=== PATIENT | female | born 1985 | race African-American/Black ===

== ENCOUNTER 2016-06-22 16:09 | Emergency (ER) | payer MEDICAID, OTHER ==
[~2016-06-22] VITALS: Ht 165.1 cm; Wt 80.0 kg
[~2016-06-22 16:09] MED LIST: ABIL5TAB PO; CEFI400C PO; DOXY100T18 PO; PROZ20CA11 PO; [UNRECOGNIZED DRUG - OTHER] PO
[2016-06-22 16:11] VITALS: BP 136/63; PULSE 97; RESP 17; TEMP 98.2; O2SAT 98
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
[2016-06-22 17:37] VITALS: BP 133/84; PULSE 90; RESP 20; O2SAT 98
[2016-06-22] MEDS ORDERED: QUET300XR PO (17:40)
[2016-06-22] MEDS ORDERED: BUPR150XL PO (17:40)
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
[2016-06-22 18:47] LABS: AUTOMATED NEUTROPHIL # 7.5 TH/MM3 (1.8-7.7); BASOPHIL # 0.1 TH/MM3 (0-0.2); BASOPHIL % 0.4 % (0.0-2.0); EOSINOPHIL # 0.2 TH/MM3 (0-0.4); EOSINOPHIL % 1.6 % (0.0-4.0); HEMO FLAGS DIFF FINAL; LYMPH % 26.8 % (9.0-44.0); LYMPHOCYTE # 3.1 TH/MM3 (1.0-4.8); MEAN CELL VOLUME 87.4 FL (80.0-100.0); MEAN CORPUSCULAR HEMOGLOBIN 28.3 PG (27.0-34.0); MEAN CORPUSCULAR HGB CONC 32.4 % (32.0-36.0); MONO % 6.5 % (0.0-8.0); NEUT % 64.7 % (16.0-70.0); PLATELET COUNT 333 TH/MM3 (150-450); RED BLOOD COUNT 4.12 MIL/MM3 (4.00-5.30); RED CELL DISTRIBUTION WIDTH 14.5 % (11.6-17.2); WHITE BLOOD COUNT 11.6 TH/MM3 (4.0-11.0)
[2016-06-22 19:05] LABS: BLOOD, URINE NEG (NEG); COMMENT (UR) CULT NOT INDICATED; CULTURE IF INDICATED CULT NOT INDICATED; GLUCOSE,URINE NEG (NEG); HYALINE CAST, URINE 2 /lpf (RARE); KETONE, URINE NEG (NEG); MUCUS URINE MOD /lpf (OCC); NITRITE,URINE NEG (NEG); SQUAMOUS EPITHELIAL CELL URINE 3 /hpf (0-5); URINE COLOR YELLOW (YELLW/STRAW)
[2016-06-22 19:15] LABS: ANION GAP 7 MEQ/L (5-15); AST (GOT) 13 U/L (15-37); BICARBONATE 28.1 MEQ/L (21.0-32.0); BLOOD UREA NITROGEN 16 MG/DL (7-18); CHLORIDE 106 MEQ/L (98-107); GLOMERULAR FILTRATION RATE 96 ML/MIN (>89); POTASSIUM 3.6 MEQ/L (3.5-5.1); SODIUM (NA) 141 MEQ/L (136-145)
[2016-06-22 19:17] VITALS: BP 101/59; PULSE 84; RESP 14; O2SAT 100
[2016-06-22 19:17] LABS: AMPHETAMINE, URINE NEG (NEG); BARBITURATES, URINE NEG (NEG); COCAINE, URINE POS (NEG)
[2016-06-22 19:19] LABS: ALKALINE PHOSPHATASE 78 U/L (45-117); ALT (GPT) 19 U/L (10-53); TOTAL BILIRUBIN ADULT 0.4 MG/DL (0.2-1.0)
[2016-06-22 19:21] LABS: ACETAMINOPHEN LESS THAN 2.0 MCG/ML (10.0-30.0)
[2016-06-22 23:25] VITALS: BP 98/55; PULSE 80; RESP 16; O2SAT 100
[2016-06-23 06:31] VITALS: BP 105/65; PULSE 73; RESP 12; O2SAT 99
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
[2016-06-23] MEDS ORDERED: PROZ20CA11 PO (10:14)
[2016-06-23] MEDS ORDERED: ABIL5TAB6 PO (10:14)
== END 2016-06-23 10:52 | disposition home or self-care (01) ==
LOC: NEPE 16:09 → NEPB 06-23 10:52
DX: F43.25 Adjustment disorder with mixed disturbance of emotions and conduct (principal); F14.10 Cocaine abuse, uncomplicated; F17.200 Nicotine dependence, unspecified, uncomplicated; Z02.89 Encounter for other administrative examinations; Z86.59 Personal history of other mental and behavioral disorders; Z87.42 Personal history of other diseases of the female genital tract
CPT/HCPCS: 80053; 80307; 81001; 84703; 85025; 99284

== ENCOUNTER 2016-07-24 07:06 | Inpatient (IN) | payer OTHER ==
[~2016-07-24] VITALS: Ht 167.6 cm; Wt 93.9 kg
[~2016-07-24 07:06] MED LIST changes: -ABIL5TAB PO; +ABIL5TAB6 PO; +BUPR150XL PO; -CEFI400C PO; -DOXY100T18 PO; +QUET300XR PO; -[UNRECOGNIZED DRUG - OTHER] PO
[2016-07-24 07:11] VITALS: BP 138/76; PULSE 113; RESP 20; TEMP 98.5; O2SAT 99
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
[2016-07-24 13:01] LABS: AUTOMATED NEUTROPHIL # 4.5 TH/MM3 (1.8-7.7); BASOPHIL % 0.6 % (0.0-2.0); EOSINOPHIL # 0.1 TH/MM3 (0-0.4); EOSINOPHIL % 1.6 % (0.0-4.0); HEMATOCRIT 34.3 % (35.0-46.0); HEMO FLAGS DIFF FINAL; LYMPH % 28.9 % (9.0-44.0); LYMPHOCYTE # 2.1 TH/MM3 (1.0-4.8); MEAN CELL VOLUME 86.2 FL (80.0-100.0); MEAN CORPUSCULAR HGB CONC 32.4 % (32.0-36.0); MONO % 6.5 % (0.0-8.0); NEUT % 62.4 % (16.0-70.0); PLATELET COUNT 253 TH/MM3 (150-450); RED BLOOD COUNT 3.98 MIL/MM3 (4.00-5.30); RED CELL DISTRIBUTION WIDTH 13.8 % (11.6-17.2); WHITE BLOOD COUNT 7.2 TH/MM3 (4.0-11.0)
[2016-07-24 13:05] LABS: BACTERIA, URINE FEW /hpf; BLOOD, URINE NEG (NEG); COMMENT (UR) CULT NOT INDICATED; CULTURE IF INDICATED CULT NOT INDICATED; GLUCOSE,URINE NEG (NEG); KETONE, URINE NEG (NEG); MUCUS URINE MOD /lpf (OCC); NITRITE,URINE NEG (NEG); PH, URINE 6.5 (5.0-8.5); SQUAMOUS EPITHELIAL CELL URINE 9 /hpf (0-5); URINE COLOR YELLOW (YELLW/STRAW)
[2016-07-24 13:09] LABS: AMPHETAMINE, URINE NEG (NEG); BARBITURATES, URINE NEG (NEG); COCAINE, URINE POS (NEG)
[2016-07-24 13:31] LABS: ANION GAP 7 MEQ/L (5-15); AST (GOT) 9 U/L (15-37); BICARBONATE 27.1 MEQ/L (21.0-32.0); BLOOD UREA NITROGEN 10 MG/DL (7-18); CHLORIDE 104 MEQ/L (98-107); GLOMERULAR FILTRATION RATE 106 ML/MIN (>89); POTASSIUM 3.4 MEQ/L (3.5-5.1); SODIUM (NA) 138 MEQ/L (136-145)
[2016-07-24 13:34] LABS: ALKALINE PHOSPHATASE 64 U/L (45-117); ALT (GPT) 14 U/L (10-53); TOTAL BILIRUBIN ADULT 0.3 MG/DL (0.2-1.0)
[2016-07-24 14:35] VITALS: BP 118/55; PULSE 77; RESP 16; TEMP 98.4; O2SAT 97
[2016-07-24 15:00] VITALS: BP 118/55; PULSE 77; RESP 16; TEMP 98.4; O2SAT 98
[2016-07-24 18:37] VITALS: BP 118/68; PULSE 92; RESP 18; TEMP 99; O2SAT 98
[2016-07-24] MEDS ORDERED: ACETAMINOPHEN 500 MG CPLT PO ONE (20:30)
[2016-07-24] MEDS ORDERED: ONDANSETRON ODT 4 MG TAB PO ONE (20:30)
[2016-07-24] MEDS ORDERED: QUEtiapine FUMARATE 300 MG TAB PO ONE (20:45)
[2016-07-24 22:35] VITALS: BP 119/54; PULSE 81; RESP 18; O2SAT 99
[2016-07-25 02:19] VITALS: BP 107/52; PULSE 72; RESP 18; O2SAT 99
[2016-07-25 06:22] VITALS: BP 119/54; PULSE 76; RESP 18; O2SAT 100
[2016-07-25] MEDS: buPROPion HCL 100 MG SUSTAINED RELEASE TAB PO SCH ×2 (09:00→20:48)
[2016-07-25] MEDS ORDERED: BENZTROPINE MESYLATE 1 MG TAB PO PRN (09:05)
[2016-07-25] MEDS ORDERED: MAGNESIUM HYDROXIDE SUSP 30 ML CUP PO PRN (09:30)
[2016-07-25] MEDS ORDERED: hydrOXYzine HCL 50 MG TAB PO PRN (10:00)
[2016-07-25] MEDS: NICOTINE 21 MG/24 HR PATCH T-DERMAL SCH (10:00)
[2016-07-25] MEDS ORDERED: ACETAMINOPHEN 325 MG TAB PO PRN (10:00)
[2016-07-25] MEDS ORDERED: BENZTROPINE MESYLATE 2 MG/2 ML VIAL IM PRN (10:00)
[2016-07-25] MEDS ORDERED: ALUMINUM/MAGNESIUM/SIMETH 30 ML CUP PO PRN (10:00)
[2016-07-25] MEDS: REMOVE OLD PATCH T-DERMAL SCH (10:00)
[2016-07-25 11:18] VITALS: BP 102/58; PULSE 87; RESP 18; TEMP 98.4; O2SAT 98
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
[2016-07-25 14:58] VITALS: BP 101/59; PULSE 76; RESP 18; TEMP 98.1; O2SAT 99
[2016-07-25 15:38] VITALS: BP 113/69; PULSE 80; RESP 17; TEMP 97.4
[2016-07-25] MEDS ORDERED: diphenhydrAMINE HCL 50 MG CAP PO PRN (21:00)
[2016-07-25] MEDS ORDERED: QUEtiapine FUMARATE 300 MG TAB PO SCH (21:00)
[2016-07-26 06:36] VITALS: BP 98/58; PULSE 75; RESP 16; TEMP 97.9; O2SAT 98
[2016-07-26] MEDS: buPROPion HCL 100 MG SUSTAINED RELEASE TAB PO SCH (08:23)
[2016-07-26] MEDS: NICOTINE 21 MG/24 HR PATCH T-DERMAL SCH (08:24)
[2016-07-26] MEDS: REMOVE OLD PATCH T-DERMAL SCH (08:24)
[2016-07-26] MEDS ORDERED: BUPR100CR PO (10:04)
[2016-07-26] MEDS ORDERED: QUET1TAB10 PO (10:04)
[2016-07-26 10:22] LABS: ANION GAP 8 MEQ/L (5-15); BICARBONATE 27.5 MEQ/L (21.0-32.0); BLOOD UREA NITROGEN 7 MG/DL (7-18); CHLORIDE 104 MEQ/L (98-107); GLOMERULAR FILTRATION RATE 90 ML/MIN (>89); POTASSIUM 3.5 MEQ/L (3.5-5.1); SODIUM (NA) 139 MEQ/L (136-145)
[2016-07-26 10:25] LABS: HDL CHOLESTEROL 42.1 MG/DL (40.0-60.0); LDL CHOLESTEROL 77 MG/DL (0-99)
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
[2016-07-26 16:35] LABS: HEMOGLOBIN A1b 1.3 %; HEMOGLOBIN LA1C 1.8 %; HEMOGLOBIN P3 3.4 %
== END 2016-07-26 12:45 | disposition home or self-care (01) | DRG 882 ==
LOC: NEPC 07:06 → NEDA 07-25 08:59 → H260 07-25 15:21
PROVIDERS: ADMIT Psychiatry & Neurology Psychiatry; ATTEND Psychiatry & Neurology Psychiatry
DX: F43.20 Adjustment disorder, unspecified (principal); R45.851 Suicidal ideations; F14.10 Cocaine abuse, uncomplicated; F31.9 Bipolar disorder, unspecified; Y09 Assault by unspecified means; Z76.5 Malingerer [conscious simulation]; F17.200 Nicotine dependence, unspecified, uncomplicated; Z79.899 Other long term (current) drug therapy; Z81.8 Family history of other mental and behavioral disorders; Z91.5 Personal history of self-harm
CPT/HCPCS: 80048; 80053; 80061; 80307; 81001; 83036; 84703; 85025; 99284

== ENCOUNTER 2016-07-30 08:08 | Emergency (ER) | payer OTHER ==
[~2016-07-30] VITALS: Ht 167.6 cm; Wt 80.0 kg
[~2016-07-30 08:08] MED LIST changes: +BUPR100CR PO; +QUET1TAB10 PO
[2016-07-30 08:23] VITALS: BP 123/72; PULSE 87; RESP 16; TEMP 98.6; O2SAT 100
[2016-07-30] MEDS ORDERED: SODIUM CHLORIDE 0.9% FLUSH 10 ML FLUSH IV FLUSH PRN (08:30)
[2016-07-30 09:05] VITALS: RESP 16; O2SAT 99
[2016-07-30 09:10] LABS: AUTOMATED NEUTROPHIL # 5.3 TH/MM3 (1.8-7.7); BASOPHIL % 0.6 % (0.0-2.0); EOSINOPHIL % 0.5 % (0.0-4.0); HEMATOCRIT 36.9 % (35.0-46.0); HEMO FLAGS DIFF FINAL; LYMPH % 26.8 % (9.0-44.0); LYMPHOCYTE # 2.1 TH/MM3 (1.0-4.8); MEAN CELL VOLUME 86.4 FL (80.0-100.0); MEAN CORPUSCULAR HGB CONC 32.3 % (32.0-36.0); MONO % 3.9 % (0.0-8.0); NEUT % 68.2 % (16.0-70.0); PLATELET COUNT 288 TH/MM3 (150-450); RED BLOOD COUNT 4.28 MIL/MM3 (4.00-5.30); RED CELL DISTRIBUTION WIDTH 14.5 % (11.6-17.2); WHITE BLOOD COUNT 7.8 TH/MM3 (4.0-11.0)
[2016-07-30 09:16] LABS: ANION GAP 7 MEQ/L (5-15); AST (GOT) 14 U/L (15-37); BICARBONATE 27.3 MEQ/L (21.0-32.0); BLOOD UREA NITROGEN 15 MG/DL (7-18); CHLORIDE 104 MEQ/L (98-107); GLOMERULAR FILTRATION RATE 74 ML/MIN (>89); POTASSIUM 3.9 MEQ/L (3.5-5.1); SODIUM (NA) 138 MEQ/L (136-145)
[2016-07-30 09:19] LABS: ALKALINE PHOSPHATASE 73 U/L (45-117); ALT (GPT) 18 U/L (10-53); TOTAL BILIRUBIN ADULT 0.5 MG/DL (0.2-1.0)
[2016-07-30] MEDS ORDERED: IBUPROFEN 800 MG TAB PO ONE (09:30)
[2016-07-30 09:36] LABS: BLOOD, URINE TRACE (NEG); GLUCOSE,URINE NEG (NEG); HYALINE CAST, URINE 3 /lpf (RARE); KETONE, URINE TRACE mg/dL (NEG); MUCUS URINE FEW /lpf (OCC); NITRITE,URINE NEG (NEG); PH, URINE 5.5 (5.0-8.5); SQUAMOUS EPITHELIAL CELL URINE 2 /hpf (0-5); URINE COLOR YELLOW (YELLW/STRAW)
[2016-07-30 09:44] LABS: COMMENT (UR) CULT NOT INDICATED; CULTURE IF INDICATED CULT NOT INDICATED
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
[2016-07-30] MEDS ORDERED: SODIUM CHLOR 0.9% 1000 ML INJ 1,000 ML IV ONE (10:30)
[2016-07-30 10:42] VITALS: RESP 16
[2016-07-30] MEDS ORDERED: IBUP-232 PO (11:39)
[2016-07-30 11:57] LABS: CHLAMYDIA PCR NOT DETECTED (NOT DETECT); NEISSERIA PCR NOT DETECTED (NOT DETECT)
== END 2016-07-30 12:16 | disposition home or self-care (01) ==
LOC: NEPC 08:08
DX: R10.2 Pelvic and perineal pain (principal); F17.210 Nicotine dependence, cigarettes, uncomplicated; F12.90 Cannabis use, unspecified, uncomplicated; F14.90 Cocaine use, unspecified, uncomplicated
CPT/HCPCS: 80053; 81001; 83690; 84703; 85025; 87210; 87491; 87591; 99284

== ENCOUNTER 2016-08-04 06:15 | Emergency (ER) | payer OTHER ==
[~2016-08-04] VITALS: Ht 167.6 cm; Wt 97.3 kg
[~2016-08-04 06:15] MED LIST changes: -ABIL5TAB6 PO; -BUPR150XL PO; +IBUP-232 PO; -PROZ20CA11 PO; -QUET300XR PO
[2016-08-04 06:18] VITALS: BP 135/80; PULSE 88; RESP 18; TEMP 98.5; O2SAT 99
[2016-08-04 06:57] VITALS: BP 120/69; PULSE 86; RESP 16; TEMP 98.1; O2SAT 100
--- NOTE | 2016-08-04 07:06 | PD ---
HPI Chief Complaint: Suicide Ideation/Attempt Time Seen by Provider: 07:03 Travel History International Travel<30 days: No Contact w/Intl Traveler<30days: No Traveled to known affect area: No History of Present Illness HPI 31-year-old female with previous history of suicidal attempts, presents to the ER today because she states that she has been upset, and intentionally overdosed on 12 tablets of Benadryl gel caps. She also states that she has drank alcohol. She denies any other medications or coingestions. She complains about feeling very tired. She denies any chest pains, trouble breathing, or other symptoms. Modifying Factors: None Associated Signs & Symptoms: Intentional overdose of Benadryl, alcohol, suicidal ideation Risk Factors: History of suicidal attempts PFSH Past Medical History Blood Disorders: No Bipolar Disorder: Yes Anxiety: Yes Depression: Yes Cardiovascular Problems: No Diabetes: No Diminished Hearing: No Endocrine: Yes Genitourinary: No Musculoskeletal: No Neurologic: No Psychiatric: Yes Reproductive: No Respiratory: No Immunizations Current: No ?: Unknown LMP: 5-6-17 : 4 Para: 4 Miscarriage: 1 Ovarian Cysts: Yes (LT SIDE) Dilation and Curettage (D&C): Yes Tubal Ligation: Yes Past Surgical History Section: Yes (06,08,11,13) Gynecologic Surgery: Yes (4 C-SECTIONS) Tonsillectomy: Yes Other Surgery: Yes Social History Alcohol Use: Yes (OCC) Tobacco Use: Yes (1/2 PPD) Substance Use: Yes (cocaine, MARIJUANA LAST USED YESTERDAY) Allergies-Medications (Allergen,Severity, Reaction): Coded Allergies: Levaquin (Verified Allergy, Severe, 08/04/16) Penicillin (Verified Allergy, Severe, Hives, 08/04/16) Zithromax (Verified Allergy, Severe, 08/04/16) Rocephin (Verified Allergy, Intermediate, 08/04/16) Codeine (Unverified Allergy, Unknown, 08/04/16) Morphine (Unverified Allergy, Unknown, 08/04/16) Reported Meds & Prescriptions Reported Meds & Active Scripts Active Ibuprofen 600 Mg Tab 600 Mg PO Q8HR PRN Quetiapine (Quetiapine Fumarate) 300 Mg Tab 300 Mg PO HS Wellbutrin SR 12 HR (Bupropion HCl) 100 Mg Tab 100 Mg PO BID Review of Systems Except as stated in HPI: all other systems reviewed are Neg Physical Exam Narrative GENERAL: Well-developed young -[place] female patient who is currently in mild distress. Awake and oriented 3. SKIN: Focused skin assessment warm/dry. HEAD: Atraumatic. Normocephalic. EYES: Pupils equal and round. No scleral icterus. No injection or drainage. ENT: No nasal bleeding or discharge. Mucous membranes pink and moist. NECK: Trachea midline. No JVD. CARDIOVASCULAR: Regular rate and rhythm. No murmur appreciated. RESPIRATORY: No accessory muscle use. Clear to auscultation. Breath sounds equal bilaterally. GASTROINTESTINAL: Abdomen soft, non-tender, nondistended. Hepatic and splenic margins not palpable. MUSCULOSKELETAL: No obvious deformities. No clubbing. No cyanosis. No edema. NEUROLOGICAL: Awake and alert. No obvious cranial nerve deficits. Motor grossly within normal limits. Normal speech. PSYCHIATRIC: Appropriate mood and affect; insight and judgment normal. Data Data Last Documented VS Vital Signs Date Time Temp Pulse Resp B/P Pulse Ox O2 Delivery O2 Flow Rate FiO2 08/04/16 06:57 841 18 100 Room Air 08/04/16 06:57 98.1 120/69 Orders Complete Blood Count With Diff (08/04/16 06:46) Comprehensive Metabolic Panel (08/04/16 06:46) Electrocardiogram (08/04/16 06:46) Psych Screen (08/04/16 06:46) Drug Screen, Random Urine (08/04/16 06:46) Alcohol (Ethanol) (08/04/16 06:46) Salicylates (Aspirin) (08/04/16 06:46) Tylenol (Acetaminophen) (08/04/16 06:46) MDM Medical Decision Making Medical Screen Exam Complete: Yes Emergency Medical Condition: Yes Medical Record Reviewed: Yes Differential Diagnosis Intentional overdose/suicidal ideation/medical clearance/rule out coingestions Narrative Course Initial workup has been ordered for the patient. Physician Communication Physician Communication Case is signed out to Dr. Sorto at 7 AM pending workup. Diagnosis Primary Impression: Suicidal ideations Additional Impressions: Medical clearance for psychiatric admission Intentional overdose of drug in tablet form Condition: Stable Dejuan Castro MD August 04, 2016 07:06
[2016-08-04 07:49] LABS: AUTOMATED NEUTROPHIL # 5.4 TH/MM3 (1.8-7.7); BASOPHIL # 0.1 TH/MM3 (0-0.2); BASOPHIL % 0.6 % (0.0-2.0); EOSINOPHIL # 0.1 TH/MM3 (0-0.4); EOSINOPHIL % 0.8 % (0.0-4.0); HEMATOCRIT 34.7 % (35.0-46.0); HEMO FLAGS DIFF FINAL; LYMPH % 29.6 % (9.0-44.0); LYMPHOCYTE # 2.5 TH/MM3 (1.0-4.8); MEAN CELL VOLUME 85.5 FL (80.0-100.0); MEAN CORPUSCULAR HEMOGLOBIN 28.7 PG (27.0-34.0); MEAN CORPUSCULAR HGB CONC 33.5 % (32.0-36.0); MONO % 5.1 % (0.0-8.0); NEUT % 63.9 % (16.0-70.0); PLATELET COUNT 310 TH/MM3 (150-450); RED BLOOD COUNT 4.05 MIL/MM3 (4.00-5.30); RED CELL DISTRIBUTION WIDTH 14.6 % (11.6-17.2); WHITE BLOOD COUNT 8.5 TH/MM3 (4.0-11.0)
--- NOTE | 2016-08-04 07:51 | PD ---
Data Data Last Documented VS Vital Signs Date Time Temp Pulse Resp B/P Pulse Ox O2 Delivery O2 Flow Rate FiO2 08/04/16 06:57 841 18 100 Room Air 08/04/16 06:57 98.1 120/69 Orders Complete Blood Count With Diff (08/04/16 06:46) Comprehensive Metabolic Panel (08/04/16 06:46) Electrocardiogram (08/04/16 06:46) Psych Screen (08/04/16 06:46) Drug Screen, Random Urine (08/04/16 06:46) Alcohol (Ethanol) (08/04/16 06:46) Salicylates (Aspirin) (08/04/16 06:46) Tylenol (Acetaminophen) (08/04/16 06:46) Labs Laboratory Tests Test 08/04/16 07:20 White Blood Count 8.5 TH/MM3 Red Blood Count 4.05 MIL/MM3 Hemoglobin 11.6 GM/DL Hematocrit 34.7 % Mean Corpuscular Volume 85.5 FL Mean Corpuscular Hemoglobin 28.7 PG Mean Corpuscular Hemoglobin 33.5 % Concent Red Cell Distribution Width 14.6 % Platelet Count 310 TH/MM3 Mean Platelet Volume 9.0 FL Neutrophils (%) (Auto) 63.9 % Lymphocytes (%) (Auto) 29.6 % Monocytes (%) (Auto) 5.1 % Eosinophils (%) (Auto) 0.8 % Basophils (%) (Auto) 0.6 % Neutrophils # (Auto) 5.4 TH/MM3 Lymphocytes # (Auto) 2.5 TH/MM3 Monocytes # (Auto) 0.4 TH/MM3 Eosinophils # (Auto) 0.1 TH/MM3 Basophils # (Auto) 0.1 TH/MM3 CBC Comment DIFF FINAL Differential Comment Sodium Level 142 MEQ/L Potassium Level 3.5 MEQ/L Chloride Level 106 MEQ/L Carbon Dioxide Level 28.3 MEQ/L Anion Gap 8 MEQ/L Blood Urea Nitrogen 14 MG/DL Creatinine 0.92 MG/DL Estimat Glomerular Filtration 87 ML/MIN Rate Random Glucose 79 MG/DL Calcium Level 8.7 MG/DL Total Bilirubin 0.2 MG/DL Aspartate Amino Transf 17 U/L (AST/SGOT) Alanine Aminotransferase 28 U/L (ALT/SGPT) Alkaline Phosphatase 74 U/L Total Protein 8.3 GM/DL Albumin 3.5 GM/DL Salicylates Level LESS THAN 1.7 MG/DL Urine Opiates Screen NEG Acetaminophen Level LESS THAN 2.0 MCG/ML Urine Barbiturates Screen NEG Urine Amphetamines Screen NEG Urine Benzodiazepines Screen NEG Urine Cocaine Screen POS Urine Cannabinoids Screen NEG Ethyl Alcohol Level LESS THAN 3 MG/DL MDM Supervised Visit with EFREN: No Narrative Course Patient signed out to me by previous provider. Please see associated note for further details. In short patient is a 31-year-old female with history of suicide attempts who has had increasing suicidal ideation as of late. Intentionally overdose on 12 tablets of 25 mg Benadryl gel caps, drink alcohol. Unclear exactly what time patient took these. Patient only minimally drowsy on exam otherwise unremarkable. Patient signout to me by previous provider pending EKG, labs, psychiatric evaluation. Twelve-lead EKG shows sinus rhythm. No notable ST abnormalities. QRS interval 113, QTC 418. CBC, CMP, Tylenol, aspirin, blood alcohol level, urine drug screen positive for cocaine. Patient is alert, oriented on my evaluation requesting breakfast. Medically clear for psychiatric evaluation. Diagnosis Primary Impression: Suicidal ideations Additional Impressions: Medical clearance for psychiatric admission Intentional overdose of drug in tablet form Condition: Stable Allison Shelley MD August 04, 2016 07:51
[2016-08-04 07:58] LABS: AMPHETAMINE, URINE NEG (NEG); BARBITURATES, URINE NEG (NEG); COCAINE, URINE POS (NEG)
[2016-08-04 08:09] LABS: ALT (GPT) 28 U/L (10-53); ANION GAP 8 MEQ/L (5-15); AST (GOT) 17 U/L (15-37); BICARBONATE 28.3 MEQ/L (21.0-32.0); BLOOD UREA NITROGEN 14 MG/DL (7-18); CHLORIDE 106 MEQ/L (98-107); GLOMERULAR FILTRATION RATE 87 ML/MIN (>89); POTASSIUM 3.5 MEQ/L (3.5-5.1); SODIUM (NA) 142 MEQ/L (136-145)
[2016-08-04 08:11] LABS: ALKALINE PHOSPHATASE 74 U/L (45-117); TOTAL BILIRUBIN ADULT 0.2 MG/DL (0.2-1.0)
[2016-08-04 08:15] LABS: ACETAMINOPHEN LESS THAN 2.0 MCG/ML (10.0-30.0)
[2016-08-04 10:37] VITALS: BP 109/58; PULSE 78; RESP 18; O2SAT 98
[2016-08-04 11:15] VITALS: BP 114/68; PULSE 82; RESP 18; TEMP 97.8; O2SAT 100
--- NOTE | 2016-08-04 16:17 | EKG ---
Date Performed: 08/04/2016 Time Performed: 07:10:25 PTAGE: 31 years EKG: Sinus rhythm MODERATE INTRAVENTRICULAR CONDUCTION DELAY MINIMAL VOLTAGE CRITERIA FOR LVH, CONSIDER NORMAL VARIANT Compared to previous tracing, the patient is no longer tachycardic BORDERLINE ECG PREVIOUS TRACING : 06/20/2013 18.18 DOCTOR: Jyoti Springer Interpretating Date/Time 08/04/2016 16:15:00
[2016-08-04 17:51] VITALS: BP 125/58; PULSE 78; RESP 18
[2016-08-04 22:13] VITALS: BP 114/52; PULSE 70; RESP 18
[2016-08-05 02:30] VITALS: BP 125/58; PULSE 69; RESP 18
[2016-08-05 06:07] VITALS: BP 109/69; PULSE 71; RESP 16; O2SAT 98
[2016-08-05 10:00] VITALS: BP 111/55; PULSE 84; RESP 18; TEMP 97.2; O2SAT 99
[2016-08-05] MEDS ORDERED: IBUPROFEN 800 MG TAB PO ONE (12:30)
[2016-08-05 15:16] VITALS: BP 103/53; PULSE 72; RESP 18; TEMP 96.8; O2SAT 100
== END 2016-08-05 15:54 | disposition home or self-care (01) ==
LOC: NEPC 06:15 → NEPJ 08-05 15:54
DX: T45.0X2A Poisoning by antiallergic and antiemetic drugs, intentional self-harm, initial encounter (principal); F41.9 Anxiety disorder, unspecified
CPT/HCPCS: 80053; 80307; 85025; 93005

== ENCOUNTER 2016-09-09 06:10 | Inpatient (IN) | payer OTHER ==
[2016-09-09] VITALS (8 sets, daily range): BP systolic 113–125; BP diastolic 62–80; PULSE 74–89; RESP 16–18; TEMP 98.5–98.7; O2SAT 0–100
--- NOTE | 2016-09-09 06:50 | PD ---
HPI Chief Complaint: OD/ Ingestion Time Seen by Provider: 06:22 Travel History International Travel<30 days: No Contact w/Intl Traveler<30days: No Traveled to known affect area: No History of Present Illness HPI The patient is a 31-year-old [place] female who presents to the emergency department after an intentional overdose. The patient states she drank 2 small bottles of Naty and took 625 mg tablets of Benadryl at approximately 4 AM in an attempt to kill herself. The patient has a history of multiple psychiatric diagnoses in the past and was prescribed Seroquel. However , the patient stopped taking the Seroquel as he states "it wasn't helping ". The patient does have a history of previous suicide attempts with overdose in the past. She does complain of helplessness with suicidal thoughts. The patient currently lives with her parents and works at [employer]. She admits to smoking marijuana, drinking alcohol, and taking Benadryl earlier tonight. She denies any hallucinations or delusions. She denies any current physical complaints. Symptoms are moderate, exacerbated by history of psychiatric problems, and there are no current alleviating factors. PFSH Past Medical History Blood Disorders: No Bipolar Disorder: Yes Anxiety: Yes Depression: Yes Cardiovascular Problems: No Diabetes: No Diminished Hearing: No Endocrine: Yes Genitourinary: No Musculoskeletal: No Neurologic: No Psychiatric: Yes Reproductive: No Respiratory: No Immunizations Current: No ?: Not : 4 Para: 4 Miscarriage: 1 Ovarian Cysts: Yes (LT SIDE) Dilation and Curettage (D&C): Yes Tubal Ligation: Yes Past Surgical History Section: Yes (,08,11,13) Gynecologic Surgery: Yes (4 C-SECTIONS) Tonsillectomy: Yes Other Surgery: Yes Social History Alcohol Use: Yes Tobacco Use: Yes (1/2 PPD) Substance Use: Yes (cocaine, MARIJUANA LAST USED YESTERDAY) Allergies-Medications (Allergen,Severity, Reaction): Coded Allergies: Levaquin (Verified Allergy, Severe, 09/09/16) Penicillin (Verified Allergy, Severe, Hives, 09/09/16) Zithromax (Verified Allergy, Severe, 09/09/16) Rocephin (Verified Allergy, Intermediate, 09/09/16) Codeine (Unverified Allergy, Unknown, 09/09/16) Morphine (Unverified Allergy, Unknown, 09/09/16) Reported Meds & Prescriptions Reported Meds & Active Scripts Active Ibuprofen 600 Mg Tab 600 Mg PO Q8HR PRN Quetiapine (Quetiapine Fumarate) 300 Mg Tab 300 Mg PO HS Wellbutrin SR 12 HR (Bupropion HCl) 100 Mg Tab 100 Mg PO BID Review of Systems Except as stated in HPI: all other systems reviewed are Neg Cardiovascular: No: Chest Pain or Discomfort Respiratory: No: Shortness of Breath Gastrointestinal: No: Nausea, Vomiting, Abdominal Pain Genitourinary: No: Dysuria Psychiatric: Positive: Depression, Suicidal Ideations, Mood Disorder, Substance Abuse Physical Exam Narrative GENERAL: Awake, alert, pleasant 31-year-old female who appears her stated age and is in no acute respiratory distress. The patient is tearful. SKIN: Focused skin assessment warm/dry. HEAD: Atraumatic. Normocephalic. EYES: Pupils equal and round. Mild injection from crying. ENT: No nasal bleeding or discharge. Mucous membranes pink and moist. NECK: Trachea midline. No JVD. CARDIOVASCULAR: Regular rate and rhythm. No murmur appreciated. Heart rate in the 80s. RESPIRATORY: No accessory muscle use. Clear to auscultation. Breath sounds equal bilaterally. GASTROINTESTINAL: Abdomen soft, non-tender, nondistended. No rebound tenderness. MUSCULOSKELETAL: No obvious deformities. No clubbing. No cyanosis. No edema. NEUROLOGICAL: Awake and alert. No obvious cranial nerve deficits. Motor grossly within normal limits. Normal speech. Nonfocal. Oriented 4. Follows commands without difficulty. PSYCHIATRIC: Tearful, insight and judgment appear normal. Data Data Last Documented VS Vital Signs Date Time Temp Pulse Resp B/P Pulse Ox O2 Delivery O2 Flow Rate FiO2 09/09/16 18:30 74 18 117/62 100 Room Air 09/09/16 06:27 98.5 Orders Complete Blood Count With Diff (09/09/16 06:30) Comprehensive Metabolic Panel (09/09/16 06:30) Electrocardiogram (09/09/16 06:30) Psych Screen (09/09/16 06:30) Drug Screen, Random Urine (09/09/16 06:30) Alcohol (Ethanol) (09/09/16 06:30) Salicylates (Aspirin) (09/09/16 06:30) Tylenol (Acetaminophen) (09/09/16 06:30) Diet Regular Basic (09/09/16 Lunch) Diet Regular Basic (09/09/16 Dinner) Labs Laboratory Tests Test 09/09/16 09/09/16 06:40 07:35 White Blood Count 8.3 TH/MM3 Red Blood Count 4.42 MIL/MM3 Hemoglobin 12.7 GM/DL Hematocrit 37.5 % Mean Corpuscular Volume 84.8 FL Mean Corpuscular Hemoglobin 28.7 PG Mean Corpuscular Hemoglobin 33.9 % Concent Red Cell Distribution Width 13.6 % Platelet Count 278 TH/MM3 Mean Platelet Volume 8.7 FL Neutrophils (%) (Auto) 60.8 % Lymphocytes (%) (Auto) 32.6 % Monocytes (%) (Auto) 5.3 % Eosinophils (%) (Auto) 0.9 % Basophils (%) (Auto) 0.4 % Neutrophils # (Auto) 5.0 TH/MM3 Lymphocytes # (Auto) 2.7 TH/MM3 Monocytes # (Auto) 0.4 TH/MM3 Eosinophils # (Auto) 0.1 TH/MM3 Basophils # (Auto) 0.0 TH/MM3 CBC Comment DIFF FINAL Differential Comment Sodium Level 139 MEQ/L Potassium Level 4.2 MEQ/L Chloride Level 106 MEQ/L Carbon Dioxide Level 24.6 MEQ/L Anion Gap 8 MEQ/L Blood Urea Nitrogen 14 MG/DL Creatinine 1.10 MG/DL Estimat Glomerular Filtration 71 ML/MIN Rate Random Glucose 78 MG/DL Calcium Level 8.9 MG/DL Total Bilirubin 0.6 MG/DL Aspartate Amino Transf 22 U/L (AST/SGOT) Alanine Aminotransferase 21 U/L (ALT/SGPT) Alkaline Phosphatase 72 U/L Total Protein 8.4 GM/DL Albumin 3.6 GM/DL Salicylates Level LESS THAN 1.7 MG/DL Acetaminophen Level LESS THAN 2.0 MCG/ML Ethyl Alcohol Level LESS THAN 3 MG/DL Urine Opiates Screen NEG Urine Barbiturates Screen NEG Urine Amphetamines Screen NEG Urine Benzodiazepines Screen NEG Urine Cocaine Screen POS Urine Cannabinoids Screen NEG MDM Medical Decision Making Medical Screen Exam Complete: Yes Emergency Medical Condition: Yes Medical Record Reviewed: Yes Interpretation(s) Laboratory Tests Test 09/09/16 09/09/16 06:40 07:35 White Blood Count 8.3 TH/MM3 Red Blood Count 4.42 MIL/MM3 Hemoglobin 12.7 GM/DL Hematocrit 37.5 % Mean Corpuscular Volume 84.8 FL Mean Corpuscular Hemoglobin 28.7 PG Mean Corpuscular Hemoglobin 33.9 % Concent Red Cell Distribution Width 13.6 % Platelet Count 278 TH/MM3 Mean Platelet Volume 8.7 FL Neutrophils (%) (Auto) 60.8 % Lymphocytes (%) (Auto) 32.6 % Monocytes (%) (Auto) 5.3 % Eosinophils (%) (Auto) 0.9 % Basophils (%) (Auto) 0.4 % Neutrophils # (Auto) 5.0 TH/MM3 Lymphocytes # (Auto) 2.7 TH/MM3 Monocytes # (Auto) 0.4 TH/MM3 Eosinophils # (Auto) 0.1 TH/MM3 Basophils # (Auto) 0.0 TH/MM3 CBC Comment DIFF FINAL Differential Comment Sodium Level 139 MEQ/L Potassium Level 4.2 MEQ/L Chloride Level 106 MEQ/L Carbon Dioxide Level 24.6 MEQ/L Anion Gap 8 MEQ/L Blood Urea Nitrogen 14 MG/DL Creatinine 1.10 MG/DL Estimat Glomerular Filtration 71 ML/MIN Rate Random Glucose 78 MG/DL Calcium Level 8.9 MG/DL Total Bilirubin 0.6 MG/DL Aspartate Amino Transf 22 U/L (AST/SGOT) Alanine Aminotransferase 21 U/L (ALT/SGPT) Alkaline Phosphatase 72 U/L Total Protein 8.4 GM/DL Albumin 3.6 GM/DL Salicylates Level LESS THAN 1.7 MG/DL Acetaminophen Level LESS THAN 2.0 MCG/ML Ethyl Alcohol Level LESS THAN 3 MG/DL Urine Opiates Screen NEG Urine Barbiturates Screen NEG Urine Amphetamines Screen NEG Urine Benzodiazepines Screen NEG Urine Cocaine Screen POS Urine Cannabinoids Screen NEG Differential Diagnosis Differential diagnosis includes substance induced mood disorder, depressive disorder, major depression, bipolar affective disorder, suicidal ideation, adjustment disorder. Narrative Course Labs are drawn and sent. Psychiatric evaluation was ordered. The patient was placed under a Rowe act secondary to the intentional overdose with alcohol and Benadryl. Patient will be medically cleared and will be evaluated by psychiatry for labs are unremarkable. Labs are unremarkable except for tox screen that is positive for cocaine, patient is medically cleared to be evaluated by psychiatry. Disposition is per psych. Diagnosis Primary Impression: Intentional overdose of drug in tablet form Additional Impressions: Suicidal ideations Cocaine abuse Condition: Stable Bassam Jo MD 25, 2017 06:50
[2016-09-09 06:55] LABS: BASOPHIL % 0.4 % (0.0-2.0); EOSINOPHIL # 0.1 TH/MM3 (0-0.4); EOSINOPHIL % 0.9 % (0.0-4.0); HEMATOCRIT 37.5 % (35.0-46.0); HEMO FLAGS DIFF FINAL; LYMPH % 32.6 % (9.0-44.0); LYMPHOCYTE # 2.7 TH/MM3 (1.0-4.8); MEAN CELL VOLUME 84.8 FL (80.0-100.0); MEAN CORPUSCULAR HEMOGLOBIN 28.7 PG (27.0-34.0); MEAN CORPUSCULAR HGB CONC 33.9 % (32.0-36.0); MONO % 5.3 % (0.0-8.0); NEUT % 60.8 % (16.0-70.0); PLATELET COUNT 278 TH/MM3 (150-450); RED BLOOD COUNT 4.42 MIL/MM3 (4.00-5.30); RED CELL DISTRIBUTION WIDTH 13.6 % (11.6-17.2); WHITE BLOOD COUNT 8.3 TH/MM3 (4.0-11.0)
[2016-09-09 07:29] LABS: ALKALINE PHOSPHATASE 72 U/L (45-117); TOTAL BILIRUBIN ADULT 0.6 MG/DL (0.2-1.0)
[2016-09-09 07:40] LABS: ACETAMINOPHEN LESS THAN 2.0 MCG/ML (10.0-30.0); ALT (GPT) 21 U/L (10-53); ANION GAP 8 MEQ/L (5-15); AST (GOT) 22 U/L (15-37); BICARBONATE 24.6 MEQ/L (21.0-32.0); BLOOD UREA NITROGEN 14 MG/DL (7-18); CHLORIDE 106 MEQ/L (98-107); GLOMERULAR FILTRATION RATE 71 ML/MIN (>89); POTASSIUM 4.2 MEQ/L (3.5-5.1); SODIUM (NA) 139 MEQ/L (136-145)
[2016-09-09 08:11] LABS: AMPHETAMINE, URINE NEG (NEG); BARBITURATES, URINE NEG (NEG); COCAINE, URINE POS (NEG)
--- NOTE | 2016-09-09 12:03 | EKG ---
Date Performed: 09/09/2016 Time Performed: 07:25:18 PTAGE: 31 years EKG: Sinus rhythm MODERATE INTRAVENTRICULAR CONDUCTION DELAY MINIMAL VOLTAGE CRITERIA FOR LVH, CONSIDER NORMAL VARIANT BORDERLINE ECG Since PREVIOUS TRACING , no significant change noted WARNING: DATA QUALITY MAY AFFECT INTERPRET ATION PREVIOUS TRACIN08/04/2016 07.10 DOCTOR: Cachorro Paniagua Interpretating Date/Time 09/09/2016 12:01:08
[2016-09-10 02:09] VITALS: BP 117/66; PULSE 78; RESP 17; TEMP 97.6; O2SAT 100
[2016-09-10] MEDS ORDERED: LORazepam 1 MG TAB PO PRN (05:30)
[2016-09-10] MEDS ORDERED: MAGNESIUM HYDROXIDE SUSP 30 ML CUP PO PRN ×2 (05:30→16:00)
[2016-09-10] MEDS ORDERED: ACETAMINOPHEN 325 MG TAB PO PRN ×2 (05:30→16:00)
[2016-09-10] MEDS ORDERED: LORazepam 2 MG/ML VIAL IM PRN (05:30)
[2016-09-10] MEDS ORDERED: ALUMINUM/MAGNESIUM/SIMETH 30 ML CUP PO PRN ×2 (05:30→16:00)
[2016-09-10 06:00] VITALS: BP 108/55; PULSE 79; RESP 18; TEMP 98.1; O2SAT 99
[2016-09-10] MEDS ORDERED: NICOTINE 21 MG/24 HR PATCH T-DERMAL SCH (09:00)
--- NOTE | 2016-09-10 16:06 | HHI.HP ---
Provisional Diagnosis Admission Date Sep 10, 2016 at 05:12 [place] I. Adjustment disorder with mixed disturbances of emotion and conduct f 43.5 cocaine abuse F 14.10 malingering Z 76.5 Certification of Person's Competence To Provide Express and Informed Consent I have personally examined Raquel Reyes , a person being served at [facility] on, Sep 10, 2016 15:54. Express and informed consent means consent voluntarily given in writing, by a competent person, after sufficient explanation and disclosure of the subject matter involved to enable the person to make a knowing and willful decision without any element of force, fraud, deceit, duress, or other form of constraint or coercion. This person is 18 years of age or older, is not now known to be incompetent to consent to treatment with a guardian advocate, and does not have a health care surrogate or proxy currently making medical treatment decisions. I have found this person to be one of the following: [xxx] Competent to provide express and informed consent, as defined above, for voluntary admission to this facility and is competent to provide express and informed consent for treatment. He/she has the consistent capacity to make well reasoned, willful, and knowing decisions concerning his or her medical or mental health treatment. The person fully and consistently understands the purpose of the admission for examination/placement and is fully capable of personally exercising all rights assured under [place] Incompetent to provide express and informed consent to voluntary admission, and this is incompetent to provide express and informed consent to treatment. The person must be transferred to involuntary status and a petition for a guardian advocate filed with the Circuit Court. [] Refusing to provide express and informed consent to voluntary admission but is competent to provide express and informed consent for treatment. The person must be discharged or transferred to involuntary status. Form shall be completed within 24 hours of a person's arrival at the receiving facility and filed in the clinical record of each person: 1. Admitted on a voluntary basis 2. Permitted to provide express and informed consent to his/her own treatment 3. Allowed to transfer from involuntary to voluntary status 4. Prior to permitting a person to consent to his or her own treatment after having been previously found incompetent to consent to treatment. History of Present Illness Capacity: Has Capacity HPI Patient is a 31-year-old Afro-Congolese female know to me from prior contact July of this year. Comes in under Rowe act signed by Lesley Jo at [facility] services dated September 09 5 AM stating intentional overdose and a drill and EtOH intention of suicide history previous suicidality attempts with psychiatric history noncompliant with Seroquel patient seen screened in ED blood alcohol level negative urine toxicology positive for cocaine.. Of interest patient seen by me 07/25/16 through 07/26/16 visit [id number] at that time patient presented with a similar story at that time patient also positive for cocaine. Patient was discharged by me after also being seen by nurse Emily and nurse Abi in response to her requesting to be seen by "administration and requesting a different psychiatrist since I focused somewhat on the patient' s long history of cocaine addictions question the veracity of her history. Same patient more tearful cooperative sad focusing on the stress of her living environment taking care of her sick mother and 4 children. She states she did see a clinician at [facility] 1-2 weeks ago states she has been questionable compliance on her Seroquel feeling that is somewhat sedating. However she also acknowledges continued cocaine use somewhat minimizing it though it appears to be he has frequent as prior. She states she has a supportive father was attempting to get in-home services for her mother. In any event at the present time patient denies suicidality homicidality voices or visions states she is willing to go home to help care for her family. I strongly recommended absolute abstinence the follow-up [facility] also follow-up with and with outpatient substance abuse treatment through [facility] patient be discharged today with no Rx by me to continue her own prescriptions in the follow-up [facility] Review of Systems Except as stated in HPI: all other systems reviewed are Neg Past Psych History Psychological trauma history Patient denies at this time Violence risk - others (6 mos) Low Violence risk - self (6 mos) Low Substance Abuse History Drugs/Alcohol past 12 months Continued use of cocaine stated use of alcohol though her blood alcohol level was negligible Past Family Social History Coded Allergies: Levaquin (Verified Allergy, Severe, 09/09/16) Penicillin (Verified Allergy, Severe, Hives, 09/09/16) Zithromax (Verified Allergy, Severe, 09/09/16) Rocephin (Verified Allergy, Intermediate, 09/09/16) Codeine (Unverified Allergy, Unknown, 09/09/16) Morphine (Unverified Allergy, Unknown, 09/09/16) Past Medical History Patient medically cleared ED Active Scripts Ibuprofen 600 Mg [id number] Mg PO Q8HR PRN (PAIN) #30 TAB Ref 0 Prov:Colton Lopez MD 07/30/16 Quetiapine 300 Mg [id number] Mg PO HS #30 TAB Ref 0 Prov:Aden Back MD 07/26/16 Bupropion HCl ER 12 HR (Wellbutrin SR 12 HR)100 Mg [id number] Mg PO BID #60 TAB Ref 0 Prov:Aden Back MD 07/26/16 Current Medications Medications (Trade) Dose Ordered Sig/Prasanth Route Start Time Stop Time Status Last Admin (Ativan) 1 mg Q6H PRN PO 09/10/16 05:30 (Ativan Inj) 1 mg Q6H PRN IM 09/10/16 05:30 (Tylenol) 650 mg Q4H PRN PO 09/10/16 05:30 (Milk Of Magnesia Liq) 30 ml DAILY PRN PO 09/10/16 05:30 (Mag-Al Plus Susp Liq) 30 ml Q6H PRN PO 09/10/16 05:30 (Habitrol 21 Mg Patch.24 Hr) 1 patch DAILY T-DERMAL 09/10/16 09:00 Miscellaneous Information 1 HS T-DERMAL 09/10/16 21:00 Family History Patient denies substance abuse or mental heal Social History Patient lives with her seriously ill mother and 4 children Patient's Strengths (min. 2) Patient verbal able access healthcare Physical Exam Patient seen screened in ED exam reviewed and agreed with patient sitting quietly in her room in no apparent distress, no respiratory distress, moves all 4 extremities without difficulty no abnormal motor movements noted Vital Signs Vital Signs Date Time Temp Pulse Resp B/P Pulse Ox O2 Delivery O2 Flow Rate FiO2 09/10/16 06:00 98.1 79 18 108/55 99 09/09/16 18:30 Room Air Mental Status Examination Alert oriented Afro-Congolese female sitting calmly in room with nurse and medical student Harman, she is fair eye contact at times somewhat tearful Appearance Slightly disheveled Speech: Rapid Orientation: x3 Memory: Unremarkable Thought Process: Logical Thought Content: Unremarkable Language Fair Fund of Knowledge Fair Hallucination Type: None Attention and Concentration: Other (fair) Suicidal Ideation: No (denies at this time) Previous Suicide Attempts: Yes Homicidal Ideation: No Previous Homicide Attempts: No Insight: Poor Judgment: Poor Affect: Other (somewhat increased range and intensity) Mood: Euthymic (to mildly dysphoric) Motor Activity: Normal gait Assessment & Plan Problem List: (1) Adjustment disorder with mixed disturbance of emotions and conduct ICD Code: F43.25 (2) Malingering ICD Code: Z76.5 (3) Cocaine abuse ICD Code: F14.10 Assessment & Plan Estimated LOS: days patient does not meet Rowe criteria will lift Rowe act patient to be discharged herself, no Rx by me, follow-up [facility] outpatient medications services, outpatient substance abuse services, refer also to Discharge Planning See above Request HC Surrog/Guard Advoc?: No Aden Back MD Sep 10, 2016 16:06
--- NOTE | 2016-09-10 16:10 | HHI.DS ---
Psychiatry Discharge Summary Inpatient Psychiatric care?: Yes Advance Directive: No Reason Not Provided: declined Mental Health AdvanceDirective: No Health Care Proxy: No Admission Admission Date Sep 10, 2016 at 05:12 Admission Diagnosis: (1) Adjustment disorder with mixed disturbance of emotions and conduct ICD Code: F43.25 (2) Cocaine abuse ICD Code: F14.10 (3) Malingering ICD Code: Z76.5 Brief History Patient is a 31-year-old Afro-Gambian female know to me from prior contact July of this year. Comes in under Rowe act signed by Lesley Jo at [facility] services dated September 09 5 AM stating intentional overdose and a drill and EtOH intention of suicide history previous suicidality attempts with psychiatric history noncompliant with Seroquel patient seen screened in ED blood alcohol level negative urine toxicology positive for cocaine.. Of interest patient seen by me 07/25/16 through 07/26/16 visit [id number] at that time patient presented with a similar story at that time patient also positive for cocaine. Patient was discharged by me after also being seen by nurse Diaz and nurse Alex in response to her requesting to be seen by "administration and requesting a different psychiatrist since I focused somewhat on the patient' s long history of cocaine addictions question the veracity of her history. Same patient more tearful cooperative sad focusing on the stress of her living environment taking care of her sick mother and 4 children. She states she did see a clinician at [facility] 1-2 weeks ago states she has been questionable compliance on her Seroquel feeling that is somewhat sedating. However she also acknowledges continued cocaine use somewhat minimizing it though it appears to be he has frequent as prior. She states she has a supportive father was attempting to get in-home services for her mother. In any event at the present time patient denies suicidality homicidality voices or visions states she is willing to go home to help care for her family. I strongly recommended absolute abstinence the follow-up [facility] also follow-up with [facility] and with outpatient substance abuse treatment through [facility] patient be discharged today with no Rx by me to continue her own prescriptions in the follow-up [facility] Tobacco Use In Past 30 Days: 5 or More Cigarettes/Day Alcohol Use: 2-4 Times Per Month Hospital Course See above note under brief history. Patient does not meet Jae criteria will lift Jae act, patient to be discharged to herself no Rx by me, follow-up [facility] may continue on prescribed medications. Follow-up also [facility] voluntary substance abuse assessment, follow-up [facility] Results Blood Pressure 108 / 55 Vital Signs Date Time Temp Pulse Resp B/P Pulse Ox O2 Delivery O2 Flow Rate FiO2 09/10/16 06:00 98.1 79 18 108/55 99 09/09/16 18:30 Room Air Laboratory Tests Test 09/09/16 09/09/16 06:40 07:35 Creatinine 1.10 MG/DL (0.50-1.00) Estimat Glomerular Filtration 71 ML/MIN (>89) Rate Total Protein 8.4 GM/DL (6.4-8.2) Salicylates Level LESS THAN 1.7 MG/DL (2.8-20.0) Acetaminophen Level LESS THAN 2.0 MCG/ML (10.0-30.0) Urine Cocaine Screen POS (NEG) Summary of Procedures None done Pending results at discharge: No Medications # of Antipsychotic meds at D/C: 0 Approp Antipsych med options 1 - Minimum of three failed multiple trials of monotherapy. 2 - Documented plan to taper to monotherapy due to previous use of multiple meds OR cross-taper in progress at D/C. 3 - Documentation of augmentation of Clozapine. 4 - Justification other than those listed in allowable values 1-3, document here : Discharge Discharge Date: Sep 10, 2016 Discharge Diagnosis: (1) Cocaine abuse Diagnosis: Secondary ICD Code: F14.10 (2) Adjustment disorder with mixed disturbance of emotions and conduct Diagnosis: Principal ICD Code: F43.25 Mental Status Exam at Disch Alert oriented Afro-Gambian female calm cooperative, she is normal active, mood is euthymic to mildly dysphoric with good range and intensity of his affect , speech rate and rhythm within normal limits though no formal thought disorders. No auditory or visual hallucinations no delusions noted. Insight and judgment is poor cognition grossly intact Pt Condition on Discharge: Stable Discharge Disposition: Discharge Home Discharge Instructions Diet Instructions: As Tolerated, No Restrictions Activities you can perform: Regular-No Restrictions Scheduled Appointment: Marshall Hardy Discharge Time > 30 minutes Discharge/Advance Care Plan Health Problems: (1) Adjustment disorder with mixed disturbance of emotions and conduct (2) Malingering (3) Cocaine abuse Goals to promote your health * To prevent worsening of your condition and complications * To maintain your health at the optimal level Directions to meet your goals Take your medications as prescribed Follow your dietary instruction Follow activity as directed Keep your appointments as scheduled Take your immunizations and boosters as scheduled If your symptoms worsen call your PCP, if no PCP go to Urgent Care Center or Emergency Room For 08/10 questions related to your inpatient stay or results of tests pending at discharge, please contact Dr. Aden Back at Smoking is Dangerous to Your Health. Avoid second hand smoking Aden Back MD Sep 10, 2016 16:10
[2016-09-10] MEDS ORDERED: REMOVE OLD NICOTINE PATCH T-DERMAL SCH (21:00)
== END 2016-09-10 17:35 | disposition home or self-care (01) | DRG 882 ==
LOC: NEPC 06:10 → NEDA 09-10 05:12 → H260 09-10 05:40
PROVIDERS: ADMIT Psychiatry & Neurology Psychiatry; ATTEND Psychiatry & Neurology Psychiatry
DX: F43.25 Adjustment disorder with mixed disturbance of emotions and conduct (principal); R45.851 Suicidal ideations; Z91.14 Patient's other noncompliance with medication regimen; F14.10 Cocaine abuse, uncomplicated; F31.9 Bipolar disorder, unspecified; F41.9 Anxiety disorder, unspecified; F17.210 Nicotine dependence, cigarettes, uncomplicated; Z76.5 Malingerer [conscious simulation]; Z91.5 Personal history of self-harm; F12.90 Cannabis use, unspecified, uncomplicated
CPT/HCPCS: 80053; 80307; 85025; 93005

== ENCOUNTER 2016-09-12 04:56 | Emergency (ER) | payer OTHER ==
[~2016-09-12] VITALS: Ht 167.6 cm; Wt 95.0 kg
[2016-09-12 04:58] VITALS: BP 122/69; PULSE 82; RESP 16; TEMP 98.7; O2SAT 99
--- NOTE | 2016-09-12 05:28 | PD ---
HPI Chief Complaint: Psychiatric Symptoms Time Seen by Provider: 05:22 Travel History International Travel<30 days: No Contact w/Intl Traveler<30days: No Traveled to known affect area: No History of Present Illness HPI Patient is a 31-year-old female presenting to emergency Department voluntarily for psychiatric evaluation. Patient states that she's been hearing voices and seeing things. She reports being off of her psychiatric medications for several months. She reports that the voices in her head tell her to "end it". She herself denies any suicidal or homicidal ideations. She states that she stopped taking Seroquel because it was making her sleepy, patient states that she was taking in the morning which could be why she was drowsy. She states that she went to [facility] yesterday to get her medications refilled and they told her to go somewhere else because they were mad at her for telling them that her medications were working. She has no physical complaints at this time. She denies using cocaine since prior to her last admission. She does endorse taking alcohol last night. PFSH Past Medical History Blood Disorders: No Bipolar Disorder: Yes Anxiety: Yes Depression: Yes Diminished Hearing: No Endocrine: Yes Genitourinary: No Musculoskeletal: No Neurologic: No Psychiatric: Yes (ADHD, Bipolar, Depression) Reproductive: No Respiratory: No Immunizations Current: No Tetanus Vaccination: < 5 Years Influenza Vaccination: Yes ?: Not : 4 Para: 4 Miscarriage: 1 Ovarian Cysts: Yes (LT SIDE) Dilation and Curettage (D&C): Yes Tubal Ligation: Yes Past Surgical History Section: Yes (06,08,11,13) Gynecologic Surgery: Yes (4 C-SECTIONS) Tonsillectomy: Yes Other Surgery: Yes Social History Alcohol Use: Yes Tobacco Use: Yes (1/2 PPD) Substance Use: Yes Allergies-Medications (Allergen,Severity, Reaction): Coded Allergies: Levaquin (Verified Allergy, Severe, 09/12/16) Penicillin (Verified Allergy, Severe, Hives, 09/12/16) Zithromax (Verified Allergy, Severe, 09/12/16) Rocephin (Verified Allergy, Intermediate, 09/12/16) Codeine (Unverified Allergy, Unknown, 09/12/16) Morphine (Unverified Allergy, Unknown, 09/12/16) Reported Meds & Prescriptions Reported Meds & Active Scripts Active Ibuprofen 600 Mg Tab 600 Mg PO Q8HR PRN Quetiapine (Quetiapine Fumarate) 300 Mg Tab 300 Mg PO HS Wellbutrin SR 12 HR (Bupropion HCl) 100 Mg Tab 100 Mg PO BID Review of Systems Except as stated in HPI: all other systems reviewed are Neg Psychiatric: Positive: Suicidal Ideations, Mood Disorder, Substance Abuse Physical Exam Narrative GENERAL: Obese, well-developed, alert female. Resting comfortably in no acute distress. SKIN: Focused skin assessment warm/dry. HEAD: Atraumatic. Normocephalic. EYES: Pupils equal and round. No scleral icterus. No injection or drainage. ENT: No nasal bleeding or discharge. Mucous membranes pink and moist. NECK: Trachea midline. No JVD. CARDIOVASCULAR: Regular rate and rhythm. No murmur appreciated. RESPIRATORY: No accessory muscle use. Clear to auscultation. Breath sounds equal bilaterally. GASTROINTESTINAL: Abdomen soft, non-tender, nondistended. Hepatic and splenic margins not palpable. MUSCULOSKELETAL: No obvious deformities. No clubbing. No cyanosis. No edema. NEUROLOGICAL: Awake and alert. No obvious cranial nerve deficits. Motor grossly within normal limits. Normal speech. PSYCHIATRIC: Appropriate mood and affect; insight and judgment normal. Data Data Last Documented VS Vital Signs Date Time Temp Pulse Resp B/P Pulse Ox O2 Delivery O2 Flow Rate FiO2 09/12/16 04:58 98.7 82 16 122/69 99 Orders Psych Screen (09/12/16 05:14) [facility] Medical Decision Making Medical Screen Exam Complete: Yes Emergency Medical Condition: Yes Interpretation(s) Vital Signs Date Time Temp Pulse Resp B/P Pulse Ox O2 Delivery O2 Flow Rate FiO2 09/12/16 04:58 98.7 82 16 122/69 99 Differential Diagnosis Mood disorder versus substance abuse versus schizophrenia versus malingering versus other Narrative Course Patient is a 31 year female presenting voluntarily to the emergency department for psychiatric evaluation. Her vital signs are stable. Patient was observed watching TV calmly prior to entering her room. When I did enter her room she began to stare off and appeared to be looking at things that weren't there. That's when she reported seeing things that weren't there. Patient was discharged on the , labs are reviewed from that admission. No acute findings are identified upon review of those labs. Patient's urine drug screen was positive for cocaine. Patient is medically clear for psychiatric evaluation at this time. Diagnosis Primary Impression: Medical clearance for psychiatric admission Condition: Stable Mervat Marie Sep 12, 2016 05:28
[2016-09-12 06:00] VITALS: BP 124/80; PULSE 77; RESP 18; TEMP 97.1; O2SAT 98
--- NOTE | 2016-09-12 12:05 | PD ---
History of Present Illness Chief Complaint: Psychiatric Symptoms Time Seen by Provider: 12:00 Travel History International Travel<30 Days: No Contact w/Intl Traveler<30days: No Known affected area: No Legal Status Legal Status: Rowe Act Rowe Act Signed By: History of Present Illness: 31-year-old female, apparently known to Dr. Back, admitted and discharged on 10 September this year. Significant history of cocaine abuse and alcohol abuse. Inconsistent history from the patient regarding auditory hallucinations, visual hallucinations, suicidal ideation and no suicidal ideation. Further, patient story appears inconsistent in that she states she went to [facility] yesterday to have her medications refilled and they would not do so because they were mad at her for telling them she had been doing well. This makes no sense to this physician as [facility] pharmacy would not deny patient her medications. Patient is admitting her history of cocaine abuse at this time but states she did not use cocaine yesterday. She did however use alcohol yesterday and states she drank it with Benadryl. Patient reports having significant stress in her life because she takes care of one of her parents and she has 4 children. However, she lives with her parents and this physician feels the patient can work and receive treatment at [facility] if she would stop using alcohol and cocaine. This physician spoke with the patient's nurse, Laura, who feels the patient is "acting". PFSH Past Medical History Blood Disorders: No Bipolar Disorder: Yes Anxiety: Yes Depression: Yes Diminished Hearing: No Endocrine: Yes Genitourinary: No Musculoskeletal: No Neurologic: No Psychiatric: Yes (ADHD, Bipolar, Depression) Reproductive: No Respiratory: No Immunizations Current: No Tetanus Vaccination: < 5 Years Influenza Vaccination: Yes ?: Not : 4 Para: 4 Miscarriage: 1 Ovarian Cysts: Yes (LT SIDE) Dilation and Curettage (D&C): Yes Tubal Ligation: Yes Past Surgical History Section: Yes (06,08,11,13) Gynecologic Surgery: Yes (4 C-SECTIONS) Tonsillectomy: Yes Other Surgery: Yes Psychiatric History Psychiatric History Hx Psychiatric Treatment: Pt has a reported history of inpatient psychiatric unit. She denies medication management and denies a history of outpatient therapy. However, pt noted that she was willing and eager to engage in individual outpatient therapy upon discharge. History of Inpatient Treatment: Yes Guns or firearms in home: No Social History Hx Alcohol Use: Yes Hx Tobacco Use: Yes (1/2 PPD) Hx Substance Use: Yes Substance Use Type: Alcohol, Marijuana, Cocaine Other Substances Used: Pt. stated that she does drink alcohol and drank Clau last night, "Lot Hx of Substance Use Treatment: Yes Allergies-Medications (Allergen,Severity, Reaction): Coded Allergies: Levaquin (Verified Allergy, Severe, 09/12/16) Penicillin (Verified Allergy, Severe, Hives, 09/12/16) Zithromax (Verified Allergy, Severe, 09/12/16) Rocephin (Verified Allergy, Intermediate, 09/12/16) Codeine (Unverified Allergy, Unknown, 09/12/16) Morphine (Unverified Allergy, Unknown, 09/12/16) Reported Meds & Prescriptions Reported Meds & Active Scripts Active Ibuprofen 600 Mg Tab 600 Mg PO Q8HR PRN Quetiapine (Quetiapine Fumarate) 300 Mg Tab 300 Mg PO HS Wellbutrin SR 12 HR (Bupropion HCl) 100 Mg Tab 100 Mg PO BID Review of Systems Except as stated in HPI: all other systems reviewed are Neg Exam Alert: Yes [place]: Person, Place, Date Mood: Calm Affect: Appropriate Speech: Clear, Logical Eye Contact: Normal Memory Intact: Immediate, Recent, Remote Suicidal: Ideation Insight/Judgement Adequate [facility] Medical Decision Making Medical Record Reviewed: Yes Assessment/Plan This is a 31-year-old female brought in under a Quickly[employer] act for making suicidal threats. The patient appears to be highly manipulative, abuses cocaine, and is inconsistent about her history, making her story not credible. This physician feels the patient continues to have a problem with cocaine abuse at least. She reportedly needs to be compliant with treatment at [facility]. This physician explained we are not license for detox and rehabilitation. This physician also explained to the patient that the primary problem appears to be substance abuse. Therefore, this physician feels it is counter therapeutic to admit the patient to a psychiatric unit. The risks of the patient acting out and harming herself remain possible, but enabling the patient's ongoing drug use and behavior is not helpful. She is able to return to her parents home by her own admission. Orders Psych Screen (09/12/16 05:14) Diet Regular Basic (09/12/16 Breakfast) Diet Regular Basic (09/12/16 Lunch) Results Vital Signs Date Time Temp Pulse Resp B/P Pulse Ox O2 Delivery O2 Flow Rate FiO2 09/12/16 06:00 97.1 77 18 124/80 98 Room Air 09/12/16 04:58 98.7 82 16 122/69 99 Diagnosis Primary Impression: Adjustment disorder with mixed disturbance of emotions and conduct Additional Impression: Cocaine abuse Condition: Stable Problem Qualifiers Con Robin MD Sep 12, 2016 12:05
[2016-09-12 12:41] VITALS: BP 104/57; PULSE 89; RESP 18; O2SAT 98
[2016-09-12] MEDS ORDERED: METR-1 PO (15:07)
== END 2016-09-12 13:01 | disposition home or self-care (01) ==
LOC: NEPJ 04:56
DX: F43.25 Adjustment disorder with mixed disturbance of emotions and conduct (principal); F14.10 Cocaine abuse, uncomplicated; F41.8 Other specified anxiety disorders; F17.210 Nicotine dependence, cigarettes, uncomplicated
CPT/HCPCS: 99284

== ENCOUNTER 2016-09-12 12:57 | Emergency (ER) | payer OTHER ==
[~2016-09-12] VITALS: Ht 167.6 cm; Wt 100.0 kg
[2016-09-12 12:59] VITALS: BP 120/60; PULSE 86; RESP 20; TEMP 98.1; O2SAT 99
--- NOTE | 2016-09-12 13:04 | PD ---
Physical Exam Date Seen by Provider: Sep 12, 2016 Time Seen by Provider: 13:02 Narrative 31 yo female here for right sided abdominal pain with N/V. Going on for two days. History of ovarian cysts. No other medical issues. Pain is 5/10. Vitals are stable in triage. Awaiting bed placement. Data Data Last Documented VS Vital Signs Date Time Temp Pulse Resp B/P Pulse Ox O2 Delivery O2 Flow Rate FiO2 09/12/16 12:59 98.1 86 20 120/60 99 Room Air [facility] Medical Record Reviewed: Yes Supervised Visit with EFREN: Grey Guerra Sep 12, 2016 13:04
[2016-09-12 13:08] VITALS: BP 119/65; PULSE 89; RESP 14; TEMP 98.6; O2SAT 98
[2016-09-12] MEDS ORDERED: SODIUM CHLOR 0.9% 1000 ML INJ 1,000 ML IV ONE (13:41)
[2016-09-12] MEDS ORDERED: ONDANSETRON HCL 4 MG/2 ML VIAL IVP ONE (13:45)
--- NOTE | 2016-09-12 13:45 | PD ---
HPI Chief Complaint: GI Complaint Time Seen by Provider: 13:42 Travel History International Travel<30 days: No Contact w/Intl Traveler<30days: No Traveled to known affect area: No History of Present Illness HPI 31-year-old female presents to the emergency department for evaluation of pelvic pain that started 2 days ago. Patient states last time she had this pain is up approximately 3 months ago when she was diagnosed with pyelonephritis and admitted. Patient reports dark urine. Patient reports one sexual partner for the past 8 months. She denies risk of STD. She states she vomited several times over the past 2 days. She reports 4 episodes of vomiting today. Patient also reports 2 episodes of diarrhea today. Patient denies reporting a recent menstrual cycle. No fevers or chills. Her chest pain or shortness breath. Patient does report history of ovarian cysts. She also reports history tubal ligation. PFSH Past Medical History Blood Disorders: No Bipolar Disorder: Yes Anxiety: Yes Depression: Yes Diminished Hearing: No Endocrine: Yes Genitourinary: No Musculoskeletal: No Neurologic: No Psychiatric: Yes (ADHD, Bipolar, Depression) Reproductive: No Respiratory: No Immunizations Current: No ?: Not : 4 Para: 4 Miscarriage: 1 Ovarian Cysts: Yes (LT SIDE) Dilation and Curettage (D&C): Yes Tubal Ligation: Yes Past Surgical History Section: Yes (06,08,11,13) Gynecologic Surgery: Yes (4 C-SECTIONS) Tonsillectomy: Yes Other Surgery: Yes Social History Alcohol Use: Yes Tobacco Use: Yes (1/2 PPD) Substance Use: Yes (cocaine and marijuana) Allergies-Medications (Allergen,Severity, Reaction): Coded Allergies: Levaquin (Verified Allergy, Severe, 09/12/16) Penicillin (Verified Allergy, Severe, Hives, 09/12/16) Zithromax (Verified Allergy, Severe, 09/12/16) Rocephin (Verified Allergy, Intermediate, 09/12/16) Codeine (Unverified Allergy, Unknown, 09/12/16) Morphine (Unverified Allergy, Unknown, 09/12/16) Reported Meds & Prescriptions Reported Meds & Active Scripts Active Ibuprofen 600 Mg Tab 600 Mg PO Q8HR PRN Quetiapine (Quetiapine Fumarate) 300 Mg Tab 300 Mg PO HS Wellbutrin SR 12 HR (Bupropion HCl) 100 Mg Tab 100 Mg PO BID Review of Systems Except as stated in HPI: all other systems reviewed are Neg Physical Exam Narrative GENERAL: Well-nourished, well-developed female patient, afebrile. SKIN: Focused skin assessment warm/dry. HEAD: Normocephalic. Atraumatic. EYES: No scleral icterus. No injection or drainage. NECK: Supple, trachea midline. No JVD or lymphadenopathy. CARDIOVASCULAR: Regular rate and rhythm without murmurs, gallops, or rubs. RESPIRATORY: Breath sounds equal bilaterally. No accessory muscle use. Lungs sounds are clear to auscultation. GASTROINTESTINAL: Abdomen soft and nondistended. Patient has pelvic tenderness to palpation. MUSCULOSKELETAL: No cyanosis, or edema. BACK: Nontender without obvious deformity. No CVA tenderness. GENITOURINARY: Normal external genitalia without lesions or erythema. Vaginal vault without blood or drainage. Cervical os was closed without drainage. Uterus nontender and nonenlarged. Bilateral adnexa nontender without masses. Patient had tenderness throughout entire pelvic exam, not just isolated to the cervix. She had no purulent vaginal discharge. This exam was done with the nurse at bedside. Data Data Last Documented VS Vital Signs Date Time Temp Pulse Resp B/P Pulse Ox O2 Delivery O2 Flow Rate FiO2 09/12/16 13:08 98.6 89 14 119/65 98 Room Air Orders Complete Blood Count With Diff (09/12/16 13:41) Basic Metabolic Panel (Bmp) (09/12/16 13:41) Gc And Chlamydia Pcr (09/12/16 13:41) Wet Prep Profile (09/12/16 13:41) Urinalysis - C+S If Indicated (09/12/16 13:41) Iv Access Insert/Monitor (09/12/16 13:41) Sodium Chlor 0.9% 1000 Ml Inj (Ns 1000 M (09/12/16 13:41) Ondansetron Inj (Zofran Inj) (09/12/16 13:45) Ed Urine Pregnancytest Poc (09/12/16 13:41) Diphenhydramine (Benadryl) (09/12/16 14:45) Labs Laboratory Tests Test 09/12/16 09/12/16 09/12/16 13:55 14:05 14:25 Urine Color YELLOW Urine Turbidity HAZY Urine pH 6.5 Urine Specific [place] 1.026 Urine Protein TRACE mg/dL Urine Glucose (UA) NEG mg/dL Urine Ketones NEG mg/dL Urine Occult Blood NEG Urine Nitrite NEG Urine Bilirubin NEG Urine Urobilinogen LESS THAN 2.0 MG/DL Urine Leukocyte Esterase NEG Urine RBC 2 /hpf Urine WBC 1 /hpf Urine Squamous Epithelial 3 /hpf Cells Urine Mucus FEW /lpf Microscopic Urinalysis Comment CULT NOT INDICATED White Blood Count 6.8 TH/MM3 Red Blood Count 4.31 MIL/MM3 Hemoglobin 12.1 GM/DL Hematocrit 36.7 % Mean Corpuscular Volume 85.2 FL Mean Corpuscular Hemoglobin 28.1 PG Mean Corpuscular Hemoglobin 33.0 % Concent Red Cell Distribution Width 13.8 % Platelet Count 274 TH/MM3 Mean Platelet Volume 8.9 FL Neutrophils (%) (Auto) 60.4 % Lymphocytes (%) (Auto) 30.9 % Monocytes (%) (Auto) 6.9 % Eosinophils (%) (Auto) 1.3 % Basophils (%) (Auto) 0.5 % Neutrophils # (Auto) 4.1 TH/MM3 Lymphocytes # (Auto) 2.1 TH/MM3 Monocytes # (Auto) 0.5 TH/MM3 Eosinophils # (Auto) 0.1 TH/MM3 Basophils # (Auto) 0.0 TH/MM3 CBC Comment DIFF FINAL Differential Comment Sodium Level 140 MEQ/L Potassium Level 3.5 MEQ/L Chloride Level 105 MEQ/L Carbon Dioxide Level 26.9 MEQ/L Anion Gap 8 MEQ/L Blood Urea Nitrogen 14 MG/DL Creatinine 0.88 MG/DL Estimat Glomerular Filtration 92 ML/MIN Rate Random Glucose 74 MG/DL Calcium Level 9.0 MG/DL Clue Cells (Wet Prep) PRESENT Vaginal Trichomonas (Wet Prep) NONE SEEN Vaginal Yeast (Wet Prep) NONE SEEN MDM Medical Decision Making Medical Screen Exam Complete: Yes Emergency Medical Condition: Yes Medical Record Reviewed: Yes Differential Diagnosis UTI versus pyelonephritis versus cervicitis versus ovarian cyst Narrative Course 31-year-old female presents to the emergency department for evaluation of pelvic pain for 2 days. Patient presents with history of pyelonephritis, ovarian cyst. She reports vomiting and diarrhea. On exam, the patient has pelvic tenderness to palpation. CBC, BMP, UA, urine test are ordered and pending. Patient gives verbal consent for pelvic exam. Patient did have pelvic tenderness during pelvic exam. However, she had no purulent vaginal discharge. She had recent pelvic exam done in July which was negative for chlamydia and gonorrhea. She denies any new sexual partners. CBC is unremarkable. BMP is unremarkable. UA is negative for acute infection. UPT is negative. Wet prep is positive for clue cells, negative for Trichomonas and yeast. The patient was discharged prescription for Flagyl for bacterial vaginosis. She is encouraged to follow with her primary care physician. She is return for any acute worsening of symptoms. Patient verbalizes agreement and understanding. The patient was discharged in stable condition with instructions, including return instructions and follow up instructions. Diagnosis Primary Impression: Bacterial vaginosis Referrals: Child Specialist Primary Care Physician Patient Instructions: Bacterial Vaginosis (ED), General Instructions Additional Instructions: Take Flagyl as directed until gone. Do not drink alcohol while on this medication. Follow-up with your primary care physician and cafeteria or lunchroom checker. Return to the emergency department for any acute worsening of symptoms. Med/Other Pt SpecificInfo: Prescription(s) given Scripts Metronidazole (Flagyl)500 Mg [id number] Mg PO BID 7 Days Ref 0 Prov:Ellyn Jon 09/12/16 Disposition: 01 DISCHARGE HOME Condition: Stable Ellyn Jon Sep 12, 2016 13:45
[2016-09-12 14:29] LABS: AUTOMATED NEUTROPHIL # 4.1 TH/MM3 (1.8-7.7); BASOPHIL % 0.5 % (0.0-2.0); EOSINOPHIL # 0.1 TH/MM3 (0-0.4); EOSINOPHIL % 1.3 % (0.0-4.0); HEMATOCRIT 36.7 % (35.0-46.0); HEMO FLAGS DIFF FINAL; LYMPH % 30.9 % (9.0-44.0); LYMPHOCYTE # 2.1 TH/MM3 (1.0-4.8); MEAN CELL VOLUME 85.2 FL (80.0-100.0); MEAN CORPUSCULAR HEMOGLOBIN 28.1 PG (27.0-34.0); MONO % 6.9 % (0.0-8.0); NEUT % 60.4 % (16.0-70.0); PLATELET COUNT 274 TH/MM3 (150-450); RED BLOOD COUNT 4.31 MIL/MM3 (4.00-5.30); RED CELL DISTRIBUTION WIDTH 13.8 % (11.6-17.2); WHITE BLOOD COUNT 6.8 TH/MM3 (4.0-11.0)
[2016-09-12 14:42] LABS: BICARBONATE 26.9 MEQ/L (21.0-32.0); POTASSIUM 3.5 MEQ/L (3.5-5.1)
[2016-09-12] MEDS ORDERED: diphenhydrAMINE HCL 25 MG CAP PO ONE (14:45)
[2016-09-12 14:46] LABS: BLOOD, URINE NEG (NEG); COMMENT (UR) CULT NOT INDICATED; CULTURE IF INDICATED CULT NOT INDICATED; GLUCOSE,URINE NEG (NEG); KETONE, URINE NEG (NEG); MUCUS URINE FEW /lpf (OCC); NITRITE,URINE NEG (NEG); PH, URINE 6.5 (5.0-8.5); SQUAMOUS EPITHELIAL CELL URINE 3 /hpf (0-5); URINE COLOR YELLOW (YELLW/STRAW)
[2016-09-12] MEDS ORDERED: METR-1 PO (15:07)
--- NOTE | 2016-09-12 15:24 | PD ---
Data Data Last Documented VS Vital Signs Date Time Temp Pulse Resp B/P Pulse Ox O2 Delivery O2 Flow Rate FiO2 09/12/16 13:08 98.6 89 14 119/65 98 Room Air Orders Complete Blood Count With Diff (09/12/16 13:41) Basic Metabolic Panel (Bmp) (09/12/16 13:41) Gc And Chlamydia Pcr (09/12/16 13:41) Wet Prep Profile (09/12/16 13:41) Urinalysis - C+S If Indicated (09/12/16 13:41) Iv Access Insert/Monitor (09/12/16 13:41) Sodium Chlor 0.9% 1000 Ml Inj (Ns 1000 M (09/12/16 13:41) Ondansetron Inj (Zofran Inj) (09/12/16 13:45) Ed Urine Pregnancytest Poc (09/12/16 13:41) Diphenhydramine (Benadryl) (09/12/16 14:45) Labs Laboratory Tests Test 09/12/16 09/12/16 09/12/16 13:55 14:05 14:25 Urine Color YELLOW Urine Turbidity HAZY Urine pH 6.5 Urine Specific [place] 1.026 Urine Protein TRACE mg/dL Urine Glucose (UA) NEG mg/dL Urine Ketones NEG mg/dL Urine Occult Blood NEG Urine Nitrite NEG Urine Bilirubin NEG Urine Urobilinogen LESS THAN 2.0 MG/DL Urine Leukocyte Esterase NEG Urine RBC 2 /hpf Urine WBC 1 /hpf Urine Squamous Epithelial 3 /hpf Cells Urine Mucus FEW /lpf Microscopic Urinalysis Comment CULT NOT INDICATED White Blood Count 6.8 TH/MM3 Red Blood Count 4.31 MIL/MM3 Hemoglobin 12.1 GM/DL Hematocrit 36.7 % Mean Corpuscular Volume 85.2 FL Mean Corpuscular Hemoglobin 28.1 PG Mean Corpuscular Hemoglobin 33.0 % Concent Red Cell Distribution Width 13.8 % Platelet Count 274 TH/MM3 Mean Platelet Volume 8.9 FL Neutrophils (%) (Auto) 60.4 % Lymphocytes (%) (Auto) 30.9 % Monocytes (%) (Auto) 6.9 % Eosinophils (%) (Auto) 1.3 % Basophils (%) (Auto) 0.5 % Neutrophils # (Auto) 4.1 TH/MM3 Lymphocytes # (Auto) 2.1 TH/MM3 Monocytes # (Auto) 0.5 TH/MM3 Eosinophils # (Auto) 0.1 TH/MM3 Basophils # (Auto) 0.0 TH/MM3 CBC Comment DIFF FINAL Differential Comment Sodium Level 140 MEQ/L Potassium Level 3.5 MEQ/L Chloride Level 105 MEQ/L Carbon Dioxide Level 26.9 MEQ/L Anion Gap 8 MEQ/L Blood Urea Nitrogen 14 MG/DL Creatinine 0.88 MG/DL Estimat Glomerular Filtration 92 ML/MIN Rate Random Glucose 74 MG/DL Calcium Level 9.0 MG/DL Clue Cells (Wet Prep) PRESENT Vaginal Trichomonas (Wet Prep) NONE SEEN Vaginal Yeast (Wet Prep) NONE SEEN MDM Supervised Visit with EFREN: Yes Narrative Course The history, exam, and medical decision-making in the associated mid-level provider note were completed with my assistance. I reviewed and agree with the findings presented. I attest that I had a [id number] encounter with the patient on the same day, and personally performed and documented my assessment and findings in the medical record. *My assessment and Findings: 31 year-old woman, just release for psychiatric complaints, presents back with ongoing pelvic pain. History of multiple previous episodes. States feels like pyelonephritis. Found have BV on exam. She said multiple negative cultures for gonorrhea and chlamydia in the past. No evidence of purulent cervicitis on exam. Recommend treatment for BV, follow-up GC and Chlamydia cultures and treat if positive. Diagnosis Primary Impression: Bacterial vaginosis Referrals: Metal Die Finisher Primary Care Physician Patient Instructions: General Instructions, Bacterial Vaginosis (ED) Departure Forms: Tests/Procedures Additional Instruction: Take Flagyl as directed until gone. Do not drink alcohol while on this medication. Follow-up with your primary care physician and quarrying specialist. Return to the emergency department for any acute worsening of symptoms. Scripts Metronidazole (Flagyl)500 Mg [id number] Mg PO BID 7 Days Ref 0 Prov:Ellyn Jon BRO 09/12/16 Disposition: 01 DISCHARGE HOME Condition: Stable Ricardo Singh MD Sep 12, 2016 15:24
[2016-09-12 16:28] LABS: CHLAMYDIA PCR NOT DETECTED (NOT DETECT); NEISSERIA PCR NOT DETECTED (NOT DETECT)
== END 2016-09-12 15:31 | disposition home or self-care (01) ==
LOC: NEPD 12:57
DX: N76.0 Acute vaginitis (principal)
CPT/HCPCS: 80048; 81001; 84703; 85025; 87210; 87491; 87591; 96361; 96374; 99284; J2405; J7030

== ENCOUNTER 2016-09-12 20:32 | Emergency (ER) | payer OTHER ==
[~2016-09-12] VITALS: Ht 167.6 cm; Wt 102.0 kg
[~2016-09-12 20:32] MED LIST changes: +METR-1 PO
[2016-09-12 20:42] VITALS: BP 111/70; PULSE 80; RESP 16; TEMP 98.1; O2SAT 99
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
== END 2016-09-12 22:25 | disposition home or self-care (01) ==
LOC: NEPD 20:32
DX: S70.02XA Contusion of left hip, initial encounter (principal); V09.9XXA Pedestrian injured in unspecified transport accident, initial encounter; Y92.538 Other ambulatory health services establishments as the place of occurrence of the external cause
CPT/HCPCS: 73501; 99283

== ENCOUNTER 2016-09-17 03:34 | Emergency (ER) | payer OTHER ==
[~2016-09-17] VITALS: Ht 167.6 cm; Wt 100.0 kg
[2016-09-17 03:40] VITALS: BP 105/61; PULSE 80; RESP 16; TEMP 98.2; O2SAT 97
[2016-09-17] MEDS ORDERED: KETOROLAC TROMETHAMINE 60 MG/2 ML (IM) VIAL IM ONE (05:00)
[2016-09-17 05:18] VITALS: BP 101/62; PULSE 86; RESP 16; O2SAT 98
--- NOTE | 2016-09-17 05:20 | PD ---
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 She reports that she has been taking the Flagyl that was previously prescribed when she was seen on September 12. She reports having dysuria with urinary frequency and urgency. The patient denies any recent fevers, cough, congestion, neck pain, chest pain, shortness of breath, vomiting, diarrhea, or neurologic symptoms. PFSH Past Medical History Narrative Medical The patient's past medical history is significant for anxiety, depression, history of hypothyroid disorder, attention deficit hyperactivity disorder, history of recent diagnosis of atrial vaginosis, history of a left ovarian cyst. Blood Disorders: No Bipolar Disorder: Yes Anxiety: Yes Depression: Yes Diminished Hearing: No Endocrine: Yes Gastrointestinal Disorders: No Genitourinary: No Musculoskeletal: No Neurologic: No Psychiatric: Yes (ADHD, Bipolar, Depression) Reproductive: No Respiratory: No Immunizations Current: No ?: Not LMP: 08/31/16 : 4 Para: 4 Miscarriage: 1 Ovarian Cysts: Yes (LT SIDE) Dilation and Curettage (D&C): Yes Tubal Ligation: Yes Past Surgical History Narrative Surgical The patient's past surgical history is significant for 4 prior C-sections, tonsillectomy, bilateral tubal ligation. Section: Yes (06,08,11,13) Gynecologic Surgery: Yes (4 C-SECTIONS) Tonsillectomy: Yes Other Surgery: Yes Social History Alcohol Use: Yes (OCC) Tobacco Use: Yes (1.5 PPD) Substance Use: Yes (cocaine and marijuana) Allergies-Medications (Allergen,Severity, Reaction): Coded Allergies: Levaquin (Verified Allergy, Severe, 09/17/16) Penicillin (Verified Allergy, Severe, Hives, 09/17/16) Zithromax (Verified Allergy, Severe, 09/17/16) Rocephin (Verified Allergy, Intermediate, 09/17/16) Codeine (Unverified Allergy, Unknown, 09/17/16) Morphine (Unverified Allergy, Unknown, 09/17/16) Reported Meds & Prescriptions Reported Meds & Active Scripts Active Macrobid (Nitrofurantoin Monoh/Nitrofur Macro) 100 Mg Cap 100 Mg PO BID Flagyl (Metronidazole) 500 Mg Tab 500 Mg PO BID 7 Days Wellbutrin SR 12 HR (Bupropion HCl) 100 Mg Tab 100 Mg PO BID Review of Systems Except as stated in HPI: all other systems reviewed are Neg General / Constitutional: No: Fever Eyes: No: Visual changes HENT: No: Headaches Cardiovascular: No: Chest Pain or Discomfort Respiratory: No: Shortness of Breath Gastrointestinal: Positive: Abdominal Pain, No: Nausea, Vomiting, Diarrhea, Indigestion, Loss of Appetite Genitourinary: Positive: Urgency, Frequency, Dysuria, Pelvic Pain, No: Vaginal Bleeding Musculoskeletal: No: Pain Skin: No Rash Neurologic: No: Weakness Psychiatric: No: Depression Endocrine: No: Polydipsia Hematologic/Lymphatic: No: Easy Bruising Physical Exam Narrative General: The patient is a well-developed well-nourished female in no acute distress, sleeping soundly on my arrival to the room Head and Neck exam: Head is normocephalic atraumatic. Eyes: EOMI, pupils are equal round and reactive to light. Nose: Midline septum with pink mucous membranes Mouth: Dentition unremarkable. Moist mucus membranes. Posterior oropharynx is not erythematous. No tonsillar hypertrophy. Uvula midline. Airway patent. Neck: No palpable lymphadenopathy. No nuchal rigidity. No thyromegaly. Cardiovascular: Regular rate and rhythm without murmurs, gallops, or rubs. Lungs: Clear to auscultation bilaterally. No wheezes, rhonchi, or rales. Abdomen: Soft, without tenderness to palpation in all 4 quadrants of the abdomen. No guarding, rebound, or rigidity. Normal bowel sounds are audible. No tenderness on palpation of McBurney's point. Negative Guzman's sign. Extremities: No clubbing, cyanosis, or edema. Back: No costovertebral angle tenderness to palpation. Neurologic Exam: Grossly nonfocal. Skin Exam: No rash noted. Intact skin that is warm and dry. Pelvic examination was deferred as she just underwent a pelvic examination on September 12 with GC and chlamydia that were negative, wet prep was positive for clue cells. Data Data Last Documented VS Vital Signs Date Time Temp Pulse Resp B/P Pulse Ox O2 Delivery O2 Flow Rate FiO2 09/17/16 05:18 86 16 101/62 98 Room Air 09/17/16 03:40 98.2 Orders Urinalysis - C+S If Indicated (09/17/16 04:46) Ed Urine Pregnancytest Poc (09/17/16 04:46) Ketorolac Inj (Toradol Inj) (09/17/16 05:00) Nitrofurantoin Monohyd Macrocr (Macrobid (09/17/16 07:15) Labs Laboratory Tests Test 09/17/16 05:24 Urine Color YELLOW Urine Turbidity HAZY Urine pH 6.0 Urine Specific [place] 1.040 Urine Protein 30 mg/dL Urine Glucose (UA) NEG mg/dL Urine Ketones TRACE mg/dL Urine Occult Blood NEG Urine Nitrite NEG Urine Bilirubin NEG Urine Urobilinogen 4.0 MG/DL Urine Leukocyte Esterase TRACE Urine RBC 4 /hpf Urine WBC 2 /hpf Urine Squamous Epithelial 5 /hpf Cells Urine Bacteria RARE /hpf Urine Mucus FEW /lpf Microscopic Urinalysis Comment CULT NOT INDICATED MDM Medical Decision Making Medical Screen Exam Complete: Yes Emergency Medical Condition: Yes Medical Record Reviewed: Yes Differential Diagnosis Urinary tract infection, versus PID, versus ovarian cysts Narrative Course During the course of the patients emergency department visit, the patients history, examination, and differential diagnosis were reviewed with the patient. The patient had a urine sent for analysis. The patient's electronic medical record was reviewed. The patient underwent a full workup on September 12 including blood work and a pelvic exam. The patient was provided Macrobid by mouth 1. Laboratory studies were reviewed and remarkable for a urinalysis that shows evidence of a urinary tract infection. The patient will be discharged home with a prescription for Macrobid. She is instructed to continue on Flagyl. The patient is resting comfortably and feels better, is alert and in no distress. The patients results and examination findings were discussed with the patient. The repeat examination is unremarkable and benign. The history, exam, diagnostic testing, and current condition do not suggest any significant pathology to warrant further testing, continued ED treatment, admission, or surgical evaluation at this point. The vital signs have been stable. The patient does not have uncontrollable pain, intractable vomiting, or other significant symptoms. The patient's condition is stable and appropriate for discharge. The patient will pursue further outpatient evaluation with a primary care physician or other designated or consulting physician as indicated in the discharge instructions. The patient expressed understanding and was agreeable with this plan. Diagnosis Primary Impression: Pelvic pain Additional Impressions: Cystitis Bacterial vaginosis Referrals: Last [facility] 3 days Patient Instructions: Bacterial Vaginosis (ED), General Instructions, Pelvic Pain in Women (ED), Urinary Tract Infection in Women (ED) Additional Instructions: Patient is instructed to start this new medication and continue on the Flagyl that was previously prescribed. Med/Other Pt SpecificInfo: Prescription(s) given Scripts Nitrofurantoin Monohydrate Macrocrystals (Macrobid)100 Mg [id number] Mg PO BID #14 CAP Ref 0 Prov:Lauren Rush MD 09/17/16 Disposition: 01 DISCHARGE HOME Condition: Stable Lauren Rush MD Sep 17, 2016 05:20
[2016-09-17 05:45] LABS: BACTERIA, URINE RARE /hpf; BLOOD, URINE NEG (NEG); GLUCOSE,URINE NEG (NEG); KETONE, URINE TRACE mg/dL (NEG); MUCUS URINE FEW /lpf (OCC); NITRITE,URINE NEG (NEG); SQUAMOUS EPITHELIAL CELL URINE 5 /hpf (0-5); URINE COLOR YELLOW (YELLW/STRAW)
[2016-09-17 05:46] LABS: COMMENT (UR) CULT NOT INDICATED; CULTURE IF INDICATED CULT NOT INDICATED
[2016-09-17] MEDS ORDERED: NITROFURANTOIN MONOHYD MACROCR 100 MG CAP PO ONE (07:15)
[2016-09-17] MEDS ORDERED: MACR100C2 PO (07:21)
[2016-09-17 07:55] VITALS: BP 106/59
== END 2016-09-17 07:56 | disposition home or self-care (01) ==
LOC: NEPC 03:34
DX: N76.0 Acute vaginitis (principal); N30.90 Cystitis, unspecified without hematuria; N83.202 Unspecified ovarian cyst, left side; F90.9 Attention-deficit hyperactivity disorder, unspecified type; E03.9 Hypothyroidism, unspecified; F41.8 Other specified anxiety disorders
CPT/HCPCS: 81001; 84703; 99283

== ENCOUNTER 2016-10-19 08:50 | Emergency (ER) | payer OTHER ==
[~2016-10-19] VITALS: Ht 165.1 cm; Wt 90.0 kg
[~2016-10-19 08:50] MED LIST changes: -IBUP-232 PO; +MACR100C2 PO; -QUET1TAB10 PO
[2016-10-19 08:56] VITALS: BP 129/68; PULSE 81; RESP 15; TEMP 98.2; O2SAT 99
--- NOTE | 2016-10-19 09:01 | PD ---
HPI Chief Complaint: Wound/Suture/Staple Re-Check Time Seen by Provider: 09:01 Travel History International Travel<30 days: No Contact w/Intl Traveler<30days: No Traveled to known affect area: No History of Present Illness HPI 31-year-old Afro-[place] female presents the emergency department via EMS status post presumed spider bite to the right distal lateral index finger. PFSH Past Medical History Blood Disorders: No Bipolar Disorder: Yes Anxiety: Yes Depression: Yes Diminished Hearing: No Endocrine: Yes Gastrointestinal Disorders: No Genitourinary: No Musculoskeletal: No Neurologic: No Psychiatric: Yes (ADHD, Bipolar, Depression) Reproductive: No Respiratory: No Immunizations Current: No : 4 Para: 4 Miscarriage: 1 Ovarian Cysts: Yes (LT SIDE) Dilation and Curettage (D&C): Yes Tubal Ligation: Yes Past Surgical History Section: Yes (06,08,11,13) Gynecologic Surgery: Yes (4 C-SECTIONS) Tonsillectomy: Yes Other Surgery: Yes Social History Alcohol Use: Yes (OCC) Tobacco Use: Yes (1.5 PPD) Substance Use: Yes (cocaine and marijuana) Allergies-Medications (Allergen,Severity, Reaction): Coded Allergies: Levaquin (Verified Allergy, Severe, 09/17/16) Penicillin (Verified Allergy, Severe, Hives, 09/17/16) Zithromax (Verified Allergy, Severe, 09/17/16) Rocephin (Verified Allergy, Intermediate, 09/17/16) Codeine (Unverified Allergy, Unknown, 09/17/16) Morphine (Unverified Allergy, Unknown, 09/17/16) Reported Meds & Prescriptions Reported Meds & Active Scripts Active Ibuprofen 600 Mg Tab 600 Mg PO Q6H PRN Bactroban Topical (Mupirocin) 22 Gm Cream 1 Applic TOPICAL BID Bactrim DS (Sulfamethoxazole-Trimethoprim) 800-160 Mg Tab 1 Tab PO BID Macrobid (Nitrofurantoin Monoh/Nitrofur Macro) 100 Mg Cap 100 Mg PO BID Flagyl (Metronidazole) 500 Mg Tab 500 Mg PO BID 7 Days Wellbutrin SR 12 HR (Bupropion HCl) 100 Mg Tab 100 Mg PO BID Physical Exam Narrative GENERAL: Patient appears in mild to moderate distress. SKIN: Warm and dry. Normal color. Normal turgor. Patient has an obvious bullous type abscess to the right distal lateral index finger. There is no significant erythema or streaking. HEAD: Atraumatic. Normocephalic. EYES: Pupils equal and round. No scleral icterus. No injection or drainage. ENT: No nasal bleeding or discharge. Mucous membranes pink and moist. Pharynx is clear. Airway is patent. NECK: Trachea midline. Supple and nontender. CARDIOVASCULAR: Regular rate and rhythm. RESPIRATORY: No accessory muscle use. Clear to auscultation. Breath sounds equal bilaterally. MUSCULOSKELETAL: Extremities without clubbing, cyanosis, or edema. No obvious deformities. NEUROLOGICAL: Awake and alert. No obvious cranial nerve deficits. Motor grossly within normal limits. Five out of 5 muscle strength in the arms and legs. Normal speech. PSYCHIATRIC: Appropriate mood and affect; insight and judgment normal. Data Data Last Documented VS Vital Signs Date Time Temp Pulse Resp B/P Pulse Ox O2 Delivery O2 Flow Rate FiO2 10/19/16 08:56 98.2 81 15 129/68 99 Orders Lidocai-Epi 1%-1:100,000 Inj (Xylocaine- (10/19/16 09:15) MDM Medical Decision Making Medical Screen Exam Complete: Yes Emergency Medical Condition: Yes Differential Diagnosis Insect bite. Local reaction. Cellulitis. Abscess. Narrative Course Abscess was I&D without difficulty. See procedure note. Culture was sent to the lab. Patient is placed on Bactrim DS twice a day 7 days. Dressing is removed place for 2 days and then is to be changed twice daily with Bactroban placement. Patient given ibuprofen 600 mg 4 times a day #40. Patient follow-up with primary care physician or return to emergency department as needed. Procedures Procedure Narrative After the risks and benefits were discussed the following procedure was performed: INCISION AND DRAINAGE OF ABSCESS: The area was prepped and was sterilely draped. Digital block of 2.5 mL 1% lidocaine with epi was used to anesthetize the area. The area was properly anesthetized. A number 11 scalpel was used to make a 0.5-cm incision across the area of the abscess. Cultures were obtained. The abscess was drained an irrigated with normal saline. Sterile dressing applied. Patient advised to have packing removed in two days. Diagnosis Primary Impression: Insect bite finger-infected Qualified Code: S60.469A - Insect bite finger-infected, initial encounter Referrals: Primary Care Physician Patient Instructions: Abscess (ED), General Instructions, Insect Bite or Sting (ED) Additional Instructions: Abscess was I&D without difficulty. Culture was sent to the lab. Patient is placed on Bactrim DS twice a day 7 days. Dressing is removed place for 2 days and then is to be changed twice daily with Bactroban placement. Patient given ibuprofen 600 mg 4 times a day #40. Patient follow-up with primary care physician or return to emergency department as needed. Med/Other Pt SpecificInfo: Prescription(s) given Scripts Ibuprofen 600 Mg [id number] Mg PO Q6H PRN (Pain/Inflammation) #40 TAB Prov:Bassam Jo MD 10/19/16 Mupirocin Topical (Bactroban Topical)22 Gm Cream1 Applic TOPICAL BID #1 TUBE Prov:Bassam Jo MD 10/19/16 Sulfamethoxazole-Trimethoprim (Bactrim DS)800-160 Mg Tab1 Tab PO BID #14 TAB Prov:Bassam Jo MD 10/19/16 Disposition: 01 DISCHARGE HOME Condition: Stable Justen Rizo Oct 19, 2016 09:01
[2016-10-19] MEDS ORDERED: IBUP-232 PO (09:13)
[2016-10-19] MEDS ORDERED: MUPI2%T TOPICAL (09:13)
[2016-10-19] MEDS ORDERED: BACT800T5 PO (09:13)
[2016-10-19] MEDS ORDERED: LIDOCAINE 1%/EPINEPHrine 1:100,000 SOLN 20 ML VIAL INFIL ONE (09:15)
== END 2016-10-19 09:54 | disposition home or self-care (01) ==
LOC: NEPK 08:50
DX: S60.460A Insect bite (nonvenomous) of right index finger, initial encounter (principal); L08.9 Local infection of the skin and subcutaneous tissue, unspecified; W57.XXXA Bitten or stung by nonvenomous insect and other nonvenomous arthropods, initial encounter; F17.210 Nicotine dependence, cigarettes, uncomplicated; B95.62 Methicillin resistant Staphylococcus aureus infection as the cause of diseases classified elsewhere
CPT/HCPCS: 10061; 86403; 87070; 87186

== ENCOUNTER 2016-10-28 11:56 | Emergency (ER) | payer OTHER ==
[~2016-10-28] VITALS: Ht 167.6 cm; Wt 116.2 kg
[~2016-10-28 11:56] MED LIST changes: +BACT800T5 PO; +IBUP-232 PO; +MUPI2%T TOPICAL
[2016-10-28 12:06] VITALS: BP 127/59; PULSE 86; RESP 20; TEMP 97.9; O2SAT 100
--- NOTE | 2016-10-28 12:33 | PD ---
HPI Chief Complaint: Skin Problem Time Seen by Provider: 12:32 Travel History International Travel<30 days: No Contact w/Intl Traveler<30days: No Traveled to known affect area: No History of Present Illness HPI 31 YO F with PMH of MRSA presents to the ED for evaluation of abrasion of the left breast times "one or 2 days." Patient denies fever or chills. She endorses 1 day history of nausea, denies vomiting. She also complains of pain in the right index finger. Patient has history of MRSA in this area. She denies limitations to range of motion. Additionally she complains of abnormal uterine bleeding. States LMP late September, lasting 6 days, 2 days heavy bleeding, 4 days light which is normal for her. She states that she had spotting yesterday and heavier vaginal bleeding today. She denies abdominal pain, risk of , endorses tubal ligation. She denies unprotected sex. She denies vaginal discharge, vaginal odor, dysuria. She states that her primary care attempted to prescribe low-dose control to normalize this abnormal bleeding but she refused. PFSH Past Medical History Blood Disorders: No Bipolar Disorder: Yes Anxiety: Yes Depression: Yes Diminished Hearing: No Endocrine: Yes Gastrointestinal Disorders: No Genitourinary: No Musculoskeletal: No Neurologic: No Psychiatric: Yes (ADHD, Bipolar, Depression) Reproductive: No Respiratory: No Immunizations Current: No ?: Not LMP: 10/11/16 : 4 Para: 4 Miscarriage: 1 Ovarian Cysts: Yes (LT SIDE) Dilation and Curettage (D&C): Yes Tubal Ligation: Yes Past Surgical History Section: Yes (06,08,11,13) Gynecologic Surgery: Yes (4 C-SECTIONS) Tonsillectomy: Yes Other Surgery: Yes Social History Alcohol Use: Yes (OCC) Tobacco Use: Yes (1.5 PPD) Substance Use: Yes (cocaine and marijuana) Allergies-Medications (Allergen,Severity, Reaction): Coded Allergies: Levaquin (Verified Allergy, Severe, 10/28/16) Penicillin (Verified Allergy, Severe, Hives, 10/28/16) Zithromax (Verified Allergy, Severe, 10/28/16) Rocephin (Verified Allergy, Intermediate, 10/28/16) Codeine (Unverified Allergy, Unknown, 10/28/16) Morphine (Unverified Allergy, Unknown, 10/28/16) *MDRO Multi-Drug Resistant Organism (Verified Adverse Reaction, Unknown, ) MRSA (finger) 10/19/16 Reported Meds & Prescriptions Reported Meds & Active Scripts Active Bactrim DS (Sulfamethoxazole-Trimethoprim) 800-160 Mg Tab 1 Tab PO BID Bactroban Topical (Mupirocin) 22 Gm Cream 1 Applic TOPICAL BID 14 Days Ibuprofen 600 Mg Tab 600 Mg PO Q6H PRN Bactroban Topical (Mupirocin) 22 Gm Cream 1 Applic TOPICAL BID Bactrim DS (Sulfamethoxazole-Trimethoprim) 800-160 Mg Tab 1 Tab PO BID Macrobid (Nitrofurantoin Monoh/Nitrofur Macro) 100 Mg Cap 100 Mg PO BID Flagyl (Metronidazole) 500 Mg Tab 500 Mg PO BID 7 Days Wellbutrin SR 12 HR (Bupropion HCl) 100 Mg Tab 100 Mg PO BID Review of Systems Except as stated in HPI: all other systems reviewed are Neg Physical Exam Narrative GENERAL: Well-nourished, well-developed female in no acute distress. She avoids eye contact,closes her eyes frequently during the interviewing. SKIN: Focused skin assessment warm/dry. 2 x 1 cm abrasion on the left breast with localized erythema. There is peeling of the skin of the distal tip of the right index finger without signs of infection. HEAD: Normocephalic. EYES: No scleral icterus. No injection or drainage. Pinpoint pupils bilaterally. NECK: Supple, trachea midline. No JVD or lymphadenopathy. CARDIOVASCULAR: Regular rate and rhythm without murmurs, gallops, or rubs. RESPIRATORY: Breath sounds equal bilaterally. No accessory muscle use. GASTROINTESTINAL: Abdomen soft, non-tender, nondistended. Active bowel sounds. No suprapubic tenderness. MUSCULOSKELETAL: No cyanosis, or edema. FOCUSED RIGHT UPPER EXTREMITY EXAM: 2+ DP pulse. Patient retains full, active, painless ROM of the digits of the hand and wrist. BACK: Nontender without obvious deformity. No CVA tenderness. Data Data Last Documented VS Vital Signs Date Time Temp Pulse Resp B/P Pulse Ox O2 Delivery O2 Flow Rate FiO2 10/28/16 12:39 85 18 119/56 100 Room Air 10/28/16 12:06 97.9 Orders Urinalysis - C+S If Indicated (10/28/16 12:47) Ed Urine Pregnancytest Poc (10/28/16 12:47) Finger ([id number]) (10/28/16 12:50) Drug Screen, Random Urine (10/28/16 12:50) Urine Culture (10/28/16 14:30) Labs Laboratory Tests Test 10/28/16 14:30 Urine Color YELLOW Urine Turbidity HAZY Urine pH 6.0 Urine Specific [place] 1.035 Urine Protein 30 mg/dL Urine Glucose (UA) NEG mg/dL Urine Ketones NEG mg/dL Urine Occult Blood LARGE Urine Nitrite NEG Urine Bilirubin NEG Urine Urobilinogen 8.0 MG/DL Urine Leukocyte Esterase SMALL Urine RBC 26 /hpf Urine WBC 14 /hpf Urine Squamous Epithelial 11 /hpf Cells Urine Bacteria RARE /hpf Urine Mucus FEW /lpf Microscopic Urinalysis Comment CULTURE INDICATED MDM Medical Decision Making Medical Screen Exam Complete: Yes Emergency Medical Condition: Yes Differential Diagnosis Abrasion versus abscess versus cellulitis versus abnormal uterine bleeding versus versus UTI versus acute substance intoxication versus other Narrative Course 31 YO F with PMH of MRSA presents to the ED for evaluation of abrasion of the left breast times "one or 2 days." Patient denies fever or chills. She endorses 1 day history of nausea, denies vomiting. She also complains of pain in the right index finger. Patient has history of MRSA in this area. Additionally she complains of abnormal uterine bleeding. Vitals reviewed. Before history gathering the patient was in the bathroom for a long period of time and seems altered with pinpoint pupils. Physical exam reveals a abrasion over the left breast without sign of infection. There is some peeling of the right index finger but no signs of infection or limitations to AROM. The abdominal exam is completely benign. ED urine test negative. X-ray of the finger without signs of osteomyelitis. UA with small leukocyte esterase , 14 wbc's and rare bacteria. Patient was prescribed Bactrim DS twice a day 7 days, Bactroban ointment. She is instructed to take the medications as prescribed, even if symptoms resolve, follow up with the stone layer for further evaluation of menometrorrhagia. She is stable and discharged home. Diagnosis Primary Impression: Abrasion Additional Impressions: Abnormal uterine bleeding UTI (urinary tract infection) Qualified Code: N39.0 - Urinary tract infection with hematuria, site unspecified Referrals: [facility] Public Health Educator Patient Instructions: Abrasion (ED), Dysfunctional Uterine Bleeding (ED), General Instructions, Urinary Tract Infection in Women (ED) Additional Instructions: Rest, hydrate. Apply Bactroban ointment to the affected area twice a day. Keep the wound clean, dry and covered. Take oral antibiotics as prescribed, even if her symptoms resolve. Follow-up with the stone layer for evaluation of your abnormal uterine bleeding. Return to the ED for any urgent or emergent medical condition. Scripts Sulfamethoxazole-Trimethoprim (Bactrim DS)800-160 Mg Tab1 Tab PO BID #14 TAB Ref 0 Prov:Dejuan Castro MD 10/28/16 Mupirocin Topical (Bactroban Topical)22 Gm Cream1 Applic TOPICAL BID 14 Days Ref 0 Prov:Dejuan Castro MD 10/28/16 Disposition: 01 DISCHARGE HOME Condition: Stable Ashly Abdalla Oct 28, 2016 12:33
[2016-10-28 12:39] VITALS: BP 119/56; PULSE 85; RESP 18; O2SAT 100
--- NOTE | 2016-10-28 14:02 | RADRPT ---
EXAM DATE/TIME: 10/28/2016 13:22 [place] COMPARISON: No previous studies available for comparison. INDICATIONS : Right hand second digit pain. MEDICAL HISTORY : Unobtainable SURGICAL HISTORY : Unobtainable ENCOUNTER: Initial ACUITY: 1 day PAIN SCORE: Non-responsive. LOCATION: Right upper extremity FINDINGS: Examination of the second digit of the right hand demonstrates soft tissue injury adjacent to the mid phalanx. Very small radiopaque foreign bodies identified. Bone destruction are intact. CONCLUSION: Soft tissue injury to the second digit with suspected small radiopaque foreign body. No evidence of acute fracture or Maurisio Elida Ashford MD on October 28, 2016 at 13:59 Board Certified Radiologist. This report was verified electronically.
[2016-10-28] MEDS ORDERED: MUPI2%T TOPICAL (15:10)
[2016-10-28] MEDS ORDERED: BACT800T5 PO (15:25)
[2016-10-28 15:28] LABS: BACTERIA, URINE RARE /hpf; BLOOD, URINE LARGE (NEG); COMMENT (UR) CULTURE INDICATED; CULTURE IF INDICATED CULTURE INDICATED; GLUCOSE,URINE NEG (NEG); KETONE, URINE NEG (NEG); MUCUS URINE FEW /lpf (OCC); NITRITE,URINE NEG (NEG); SQUAMOUS EPITHELIAL CELL URINE 11 /hpf (0-5); URINE COLOR YELLOW (YELLW/STRAW)
[2016-10-28 16:35] VITALS: BP 124/60; PULSE 80; RESP 18; O2SAT 99
== END 2016-10-28 16:36 | disposition home or self-care (01) ==
LOC: NEPC 11:56
DX: S20.112A Abrasion of breast, left breast, initial encounter (principal); N93.9 Abnormal uterine and vaginal bleeding, unspecified; N39.0 Urinary tract infection, site not specified; B96.89 Other specified bacterial agents as the cause of diseases classified elsewhere; R31.9 Hematuria, unspecified; R11.0 Nausea; F17.200 Nicotine dependence, unspecified, uncomplicated; M79.644 Pain in right finger(s); X58.XXXA Exposure to other specified factors, initial encounter; Z79.899 Other long term (current) drug therapy
CPT/HCPCS: 73140; 80307; 81001; 84703; 87086; 99284

== ENCOUNTER 2016-11-19 08:20 | Inpatient (IN) | payer OTHER ==
[~2016-11-19] VITALS: Ht 167.6 cm; Wt 102.3 kg
[2016-11-19 08:22] VITALS: BP 124/68; PULSE 88; RESP 20; TEMP 98.5; O2SAT 97
--- NOTE | 2016-11-19 08:45 | PD ---
HPI Chief Complaint: Skin Problem Time Seen by Provider: 20:30 Travel History International Travel<30 days: No Contact w/Intl Traveler<30days: No Traveled to known affect area: No History of Present Illness HPI This is a 31-year-old female who presents for evaluation of 2 separate complaints. The patient was seen her in October 19 for possible bug bite to the right index finger. It appears that an incision and drainage was performed. She was started on Bactrim. Wound culture grow MRSA. She was seen again for multiple complaints, including right index ear pain, on October 28. It appears that an x-ray was performed and she received a call back in regards to a possible radiopaque foreign body in the right index finger. She now presents 3 weeks later for follow-up on this call. She endorses continued pain and a numbness feeling in her right index finger. Denies any injuries. She does not recall how she first developed the infection in the right index finger. She does not recall any puncture wounds. In addition the patient is complaining of depression and passive suicidal thoughts. This is been ongoing for some time, worse over the past few days. She reports that she was seen at [facility] on November 11, started on Latuda and Vistaril, given outpatient resource list for follow-up purposes but she is feeling increasing depression and anxiety. She has no specific plans on self-harm. She has no other complaints at this time. [facility] Past Medical History Blood Disorders: No Bipolar Disorder: Yes Anxiety: Yes Depression: Yes Diabetes: No (Pt denied) Diminished Hearing: No Endocrine: Yes Gastrointestinal Disorders: No Genitourinary: No Musculoskeletal: No Neurologic: No Psychiatric: Yes (ADHD, Bipolar, Depression) Reproductive: No Respiratory: No Immunizations Current: No ?: Not : 4 Para: 4 Miscarriage: 1 Ovarian Cysts: Yes (LT SIDE) Dilation and Curettage (D&C): Yes Tubal Ligation: Yes Past Surgical History Section: Yes (,08,11,) Gynecologic Surgery: Yes (4 C-SECTIONS) Tonsillectomy: Yes Other Surgery: Yes Social History Alcohol Use: Yes (OCC) Tobacco Use: Yes (1.5 PPD) Substance Use: Yes (cocaine and marijuana) Allergies-Medications (Allergen,Severity, Reaction): Coded Allergies: azithromycin (Unverified Allergy, Severe, 10/30/16) levofloxacin (Unverified Allergy, Severe, 10/30/16) penicillin G (Unverified Allergy, Severe, Hives, 10/30/16) ceftriaxone (Unverified Allergy, Intermediate, 10/30/16) codeine (Unverified Allergy, Unknown, 10/30/16) morphine (Unverified Allergy, Unknown, 10/30/16) *MDRO Multi-Drug Resistant Organism (Verified Adverse Reaction, Unknown, ) MRSA (finger) 10/19/16 Reported Meds & Prescriptions Reported Meds & Active Scripts Active Wellbutrin SR 12 HR (Bupropion HCl) 100 Mg Tab 100 Mg PO BID Reported Vistaril (Hydroxyzine Pamoate) 25 Mg Cap 25 Mg PO HS Latuda (Lurasidone) 40 Mg Tab 40 Mg PO BID Review of Systems Except as stated in HPI: all other systems reviewed are Neg Physical Exam Narrative GENERAL: Well-developed well-nourished female in no acute distress SKIN: Warm and dry. HEAD: Atraumatic. Normocephalic. EYES: Pupils equal and round. No scleral icterus. No injection or drainage. ENT: No nasal bleeding or discharge. Mucous membranes pink and moist. NECK: Trachea midline. No JVD. CARDIOVASCULAR: Regular rate and rhythm. No murmur appreciated. RESPIRATORY: No accessory muscle use. Clear to auscultation. Breath sounds equal bilaterally. GASTROINTESTINAL: Abdomen soft, non-tender, nondistended. Hepatic and splenic margins not palpable. MUSCULOSKELETAL: No obvious deformities. Incision scar noted to the lateral right index finger. There is no drainage, no induration, no erythema, no fluctuance, no palpable foreign bodies. The patient intends full flexion and extension of her right index finger with no apparent discomfort or limitation. NEUROLOGICAL: Awake and alert. No obvious cranial nerve deficits. Motor grossly within normal limits. Normal speech. PSYCHIATRIC: Flat affect. Insight and judgment appear limited. Data Data Last Documented VS Vital Signs Date Time Temp Pulse Resp B/P (MAP) Pulse Ox O2 Delivery O2 Flow Rate FiO2 11/19/16 09:53 85 18 113/67 (82) 99 Room Air 11/19/16 08:22 98.5 Orders Orders Complete Blood Count With Diff (11/19/16 08:40) Comprehensive Metabolic Panel (11/19/16 08:40) Ed Urine Pregnancytest Poc (11/19/16 08:40) Psych Screen (11/19/16 08:40) Drug Screen, Random Urine (11/19/16 08:40) Alcohol (Ethanol) (11/19/16 08:40) Salicylates (Aspirin) (11/19/16 08:40) Tylenol (Acetaminophen) (11/19/16 08:40) Diet Regular Basic (11/19/16 Lunch) Admit Order (Ed Use Only) (11/19/16 15:31) Labs Laboratory Tests Test 11/19/16 08:50 11/19/16 08:55 Urine Opiates Screen NEG Urine Barbiturates Screen NEG Urine Amphetamines Screen NEG Urine Benzodiazepines Screen NEG Urine Cocaine Screen POS Urine Cannabinoids Screen NEG White Blood Count 10.7 TH/MM3 Red Blood Count 4.37 MIL/MM3 Hemoglobin 12.4 GM/DL Hematocrit 37.6 % Mean Corpuscular Volume 86.0 FL Mean Corpuscular Hemoglobin 28.3 PG Mean Corpuscular Hemoglobin Concent 32.9 % Red Cell Distribution Width 14.4 % Platelet Count 283 TH/MM3 Mean Platelet Volume 9.0 FL Neutrophils (%) (Auto) 66.5 % Lymphocytes (%) (Auto) 26.0 % Monocytes (%) (Auto) 6.5 % Eosinophils (%) (Auto) 0.7 % Basophils (%) (Auto) 0.3 % Neutrophils # (Auto) 7.2 TH/MM3 Lymphocytes # (Auto) 2.8 TH/MM3 Monocytes # (Auto) 0.7 TH/MM3 Eosinophils # (Auto) 0.1 TH/MM3 Basophils # (Auto) 0.0 TH/MM3 CBC Comment DIFF FINAL Differential Comment Blood Urea Nitrogen 22 MG/DL Creatinine 0.99 MG/DL Random Glucose 79 MG/DL Total Protein 8.5 GM/DL Albumin 3.6 GM/DL Calcium Level 9.1 MG/DL Alkaline Phosphatase 75 U/L Aspartate Amino Transf (AST/SGOT) 13 U/L Alanine Aminotransferase (ALT/SGPT) 21 U/L Total Bilirubin 0.6 MG/DL Sodium Level 136 MEQ/L Potassium Level 3.9 MEQ/L Chloride Level 106 MEQ/L Carbon Dioxide Level 22.0 MEQ/L Anion Gap 8 MEQ/L Estimat Glomerular Filtration Rate 80 ML/MIN Salicylates Level 2.0 MG/DL Acetaminophen Level LESS THAN 2.0 MCG/ML Ethyl Alcohol Level 4 MG/DL MDM Medical Decision Making Medical Screen Exam Complete: Yes Emergency Medical Condition: Yes Medical Record Reviewed: Yes Differential Diagnosis Schizoaffective disorder, schizophrenia, substance induced mood disorder, bipolar disorder, acute psychosis Narrative Course Examination of the right hand reveals no evidence of infectious process. The previous incision has healed well. There is no palpable foreign body. The plan would be to have the patient follow-up on a routine basis with a hand surgeon to discuss the risks and benefits of attempting to remove the tiny radiopaque foreign body that was seen on the x-ray on October 28. There is certainly no indication for emergent finger exploration at this time. Mental health screening discussed with the patient. Psychiatric screen ordered. Drug screen is positive for cocaine. Lab work is otherwise unremarkable. The patient is medically cleared for psychiatric disposition. Diagnosis Primary Impression: Depression Qualified Codes: F32.9 - Major depressive disorder, single episode, unspecified Additional Impression: Foreign body of right index finger Referrals: Nathan Cartwright MD Hand Surgeon Additional Instructions: Follow-up with a hand surgeon such as Dr. Cartwright. Norman Scherer Nov 19, 2016 08:45
[2016-11-19 09:20] LABS: AUTOMATED NEUTROPHIL # 7.2 TH/MM3 (1.8-7.7); BASOPHIL % 0.3 % (0.0-2.0); EOSINOPHIL # 0.1 TH/MM3 (0-0.4); EOSINOPHIL % 0.7 % (0.0-4.0); HEMATOCRIT 37.6 % (35.0-46.0); HEMO FLAGS DIFF FINAL; LYMPHOCYTE # 2.8 TH/MM3 (1.0-4.8); MEAN CORPUSCULAR HEMOGLOBIN 28.3 PG (27.0-34.0); MEAN CORPUSCULAR HGB CONC 32.9 % (32.0-36.0); MONO % 6.5 % (0.0-8.0); NEUT % 66.5 % (16.0-70.0); PLATELET COUNT 283 TH/MM3 (150-450); RED BLOOD COUNT 4.37 MIL/MM3 (4.00-5.30); RED CELL DISTRIBUTION WIDTH 14.4 % (11.6-17.2); WHITE BLOOD COUNT 10.7 TH/MM3 (4.0-11.0)
[2016-11-19 09:23] LABS: ANION GAP 8 MEQ/L (5-15); BLOOD UREA NITROGEN 22 MG/DL (7-18); CHLORIDE 106 MEQ/L (98-107); GLOMERULAR FILTRATION RATE 80 ML/MIN (>89); POTASSIUM 3.9 MEQ/L (3.5-5.1); SODIUM (NA) 136 MEQ/L (136-145)
[2016-11-19 09:24] LABS: AST (GOT) 13 U/L (15-37)
[2016-11-19 09:27] LABS: ALKALINE PHOSPHATASE 75 U/L (45-117); ALT (GPT) 21 U/L (10-53); TOTAL BILIRUBIN ADULT 0.6 MG/DL (0.2-1.0)
[2016-11-19] MEDS ORDERED: VIST25CA PO (09:31)
[2016-11-19] MEDS ORDERED: LURA40 PO (09:31)
[2016-11-19 09:32] LABS: ALCOHOL 4 MG/DL (0-5)
[2016-11-19 09:33] LABS: ACETAMINOPHEN LESS THAN 2.0 MCG/ML (10.0-30.0)
[2016-11-19 09:53] VITALS: BP 113/67; PULSE 85; RESP 18; O2SAT 99
[2016-11-19] MEDS ORDERED: LORazepam 0.5 MG TAB PO PRN (15:45)
[2016-11-19] MEDS ORDERED: MAGNESIUM HYDROXIDE SUSP 30 ML CUP PO PRN (15:45)
[2016-11-19] MEDS ORDERED: ALUMINUM/MAGNESIUM/SIMETH 30 ML CUP PO PRN (15:45)
[2016-11-19] MEDS ORDERED: LORazepam 2 MG/ML VIAL IM PRN ×2 (15:45)
--- NOTE | 2016-11-19 15:47 | HHI.HP ---
Provisional Diagnosis Admission Date [place] I. Brief psychotic disorder Certification of Person's Competence To Provide Express and Informed Consent I have personally examined Raquel Reyes , a person being served at [facility] on, Nov 19, 2016 15:36. Express and informed consent means consent voluntarily given in writing, by a competent person, after sufficient explanation and disclosure of the subject matter involved to enable the person to make a knowing and willful decision without any element of force, fraud, deceit, duress, or other form of constraint or coercion. This person is 18 years of age or older, is not now known to be incompetent to consent to treatment with a guardian advocate, and does not have a health care surrogate or proxy currently making medical treatment decisions. I have found this person to be one of the following: [x] Competent to provide express and informed consent, as defined above, for voluntary admission to this facility and is competent to provide express and informed consent for treatment. He/she has the consistent capacity to make well reasoned, willful, and knowing decisions concerning his or her medical or mental health treatment. The person fully and consistently understands the purpose of the admission for examination/placement and is fully capable of personally exercising all rights assured [place] [] Incompetent to provide express and informed consent to voluntary admission, and this is incompetent to provide express and informed consent to treatment. The person must be transferred to involuntary status and a petition for a guardian advocate filed with the Circuit Court. [] Refusing to provide express and informed consent to voluntary admission but is competent to provide express and informed consent for treatment. The person must be discharged or transferred to involuntary status. Form shall be completed within 24 hours of a person's arrival at the receiving facility and filed in the clinical record of each person: 1. Admitted on a voluntary basis 2. Permitted to provide express and informed consent to his/her own treatment 3. Allowed to transfer from involuntary to voluntary status 4. Prior to permitting a person to consent to his or her own treatment after having been previously found incompetent to consent to treatment. History of Present Illness Capacity: Has Capacity HPI This is a 31-year-old female who presents voluntarily with complaints regarding one of her fingers and complaints of depression with suicidality. Patient medically cleared in the emergency department and was seen by this physician and J pod. She does admit to symptoms of depression and suicidality. She states she has been having these thoughts for several weeks and they have been increasing in severity. She indicates she could overdose on her medication if she were to attempt suicide. She was recently started on Latuda at [facility], approximately one week ago. She also takes Wellbutrin and Vistaril. She is claiming to have been hearing voices for years and continues to do so, although describes them as intermittent. She speaks at times with loose associations and is therefore a fairly poor historian. When she is not in the hospital she lives with her parents. She is positive for cocaine. Patient has been treated here previously by multiple providers and she was discharged from the inpatient service with a diagnosis of malingering according to Dr. Back. At this time the patient is unable to contract for safety. She describes depressed mood, anhedonia, feeling hopeless and helpless, diminished self-esteem, anxiety, decreased energy, irritability, etc. Review of Systems Except as stated in HPI: all other systems reviewed are Neg Past Psych History Psychological trauma history Patient has multiple diagnoses including bipolar disorder, schizophrenia, schizoaffective disorder, cocaine abuse, malingering, etc. Violence risk - others (6 mos) Minimal Violence risk - self (6 mos) High Substance Abuse History Drugs/Alcohol past 12 months Recent cocaine use. History of substance abuse. Past Family Social History Coded Allergies: azithromycin (Unverified Allergy, Severe, 10/30/16) levofloxacin (Unverified Allergy, Severe, 10/30/16) penicillin G (Unverified Allergy, Severe, Hives, 10/30/16) ceftriaxone (Unverified Allergy, Intermediate, 10/30/16) codeine (Unverified Allergy, Unknown, 10/30/16) morphine (Unverified Allergy, Unknown, 10/30/16) *MDRO Multi-Drug Resistant Organism (Verified Adverse Reaction, Unknown, ) MRSA (finger) 10/19/16 Active Scripts Bupropion HCl ER 12 HR (Wellbutrin SR 12 HR) 100 Mg Tab, 100 MG PO BID for health, #60 TAB 0 Refills Prov:Aden Back MD 07/26/16 Reported Medications Hydroxyzine Pamoate (Vistaril) 25 Mg Cap, 25 MG PO HS, CAP 0 Refills 11/19/16 Lurasidone (Latuda) 40 Mg Tab, 40 MG PO BID, #30 TAB 0 Refills 11/19/16 Discontinued Scripts Sulfamethoxazole-Trimethoprim (Bactrim DS) 800-160 Mg Tab, 1 TAB PO BID for Infection, #14 TAB 0 Refills Prov:Dejuan Castro MD 10/28/16 Mupirocin Topical (Bactroban Topical) 22 Gm Cream, 1 APPLIC TOPICAL BID for Mgmt Bacterial Infection for 14 Days, TUBE 0 Refills Prov:Dejuan Castro MD 10/28/16 Ibuprofen (Ibuprofen) 600 Mg Tab, 600 MG PO Q6H Y for Pain/Inflammation, #40 TAB Prov:Bassam Jo MD 10/19/16 Mupirocin Topical (Bactroban Topical) 22 Gm Cream, 1 APPLIC TOPICAL BID for Mgmt Bacterial Infection, #1 TUBE Prov:Bassam Jo MD 10/19/16 Sulfamethoxazole-Trimethoprim (Bactrim DS) 800-160 Mg Tab, 1 TAB PO BID for Infection, #14 TAB Prov:Bassam Jo MD 10/19/16 Nitrofurantoin Monohydrate Macrocrystals (Macrobid) 100 Mg Cap, 100 MG PO BID for Infection, #14 CAP 0 Refills Prov:Lauren Rush MD 09/17/16 Metronidazole (Flagyl) 500 Mg Tab, 500 MG PO BID for Infection for 7 Days, TAB 0 Refills Prov:Ellyn Jon 09/12/16 Family History Patient claims not to know her family history. Social History Patient is unemployed. She lives with her mother and stepfather. She apparently uses drugs. Patient's Strengths (min. 2) Verbal and has access to healthcare. Physical Exam GENERAL: SKIN: Warm and dry. HEAD: Normocephalic. EYES: No scleral icterus. No injection or drainage. NECK: Supple, trachea midline. No JVD or lymphadenopathy. CARDIOVASCULAR: Regular rate and rhythm without murmurs, gallops, or rubs. RESPIRATORY: Breath sounds equal bilaterally. No accessory muscle use. GASTROINTESTINAL: Abdomen soft, non-tender, nondistended. MUSCULOSKELETAL: No cyanosis, or edema. BACK: Nontender without obvious deformity. No CVA tenderness. Vital Signs Vital Signs Date Time Temp Pulse Resp B/P (MAP) Pulse Ox O2 Delivery O2 Flow Rate FiO2 11/19/16 09:53 85 18 113/67 (82) 99 Room Air 11/19/16 08:22 98.5 Lab Results Test 11/19/16 08:50 11/19/16 08:55 Urine Opiates Screen NEG Urine Barbiturates Screen NEG Urine Amphetamines Screen NEG Urine Benzodiazepines Screen NEG Urine Cocaine Screen POS Urine Cannabinoids Screen NEG White Blood Count 10.7 TH/MM3 Red Blood Count 4.37 MIL/MM3 Hemoglobin 12.4 GM/DL Hematocrit 37.6 % Mean Corpuscular Volume 86.0 FL Mean Corpuscular Hemoglobin 28.3 PG Mean Corpuscular Hemoglobin Concent 32.9 % Red Cell Distribution Width 14.4 % Platelet Count 283 TH/MM3 Mean Platelet Volume 9.0 FL Neutrophils (%) (Auto) 66.5 % Lymphocytes (%) (Auto) 26.0 % Monocytes (%) (Auto) 6.5 % Eosinophils (%) (Auto) 0.7 % Basophils (%) (Auto) 0.3 % Neutrophils # (Auto) 7.2 TH/MM3 Lymphocytes # (Auto) 2.8 TH/MM3 Monocytes # (Auto) 0.7 TH/MM3 Eosinophils # (Auto) 0.1 TH/MM3 Basophils # (Auto) 0.0 TH/MM3 CBC Comment DIFF FINAL Differential Comment Blood Urea Nitrogen 22 MG/DL Creatinine 0.99 MG/DL Random Glucose 79 MG/DL Total Protein 8.5 GM/DL Albumin 3.6 GM/DL Calcium Level 9.1 MG/DL Alkaline Phosphatase 75 U/L Aspartate Amino Transf (AST/SGOT) 13 U/L Alanine Aminotransferase (ALT/SGPT) 21 U/L Total Bilirubin 0.6 MG/DL Sodium Level 136 MEQ/L Potassium Level 3.9 MEQ/L Chloride Level 106 MEQ/L Carbon Dioxide Level 22.0 MEQ/L Anion Gap 8 MEQ/L Estimat Glomerular Filtration Rate 80 ML/MIN Salicylates Level 2.0 MG/DL Acetaminophen Level LESS THAN 2.0 MCG/ML Ethyl Alcohol Level 4 MG/DL Mental Status Examination Speech: Hesitant Orientation: x3 Memory: Unremarkable Thought Process: Loose Association Thought Content: Bizarre thinking Hallucination Type: Auditory Attention and Concentration: Abnormal Suicidal Ideation: No Previous Suicide Attempts: Yes Homicidal Ideation: No Previous Homicide Attempts: No Insight: Fair Judgment: Unrealistic Affect: Anxious, Sad, Other Affect if Inappropriate: Blunt Mood: Sad, Anxious Motor Activity: Normal gait Assessment & Plan Problem List: (1) Brief psychotic disorder ICD Codes: F23 - Brief psychotic disorder Assessment & Plan Estimated LOS: days. 31-year-old female being admitted voluntarily for suicidal ideation with plan to overdose on her medication. Patient is complaining that her medication, while changed a week ago is not helping. She has become increasingly desponded over the last 3-4 weeks. She has thoughts of ingesting her medicine and repeatedly states that she is "done". She is not able to competently contract for safety and is therefore being admitted. This physician is ordering a CBC and comprehensive metabolic profile to determine if any infectious process or metabolic process is causing or contributing to her depression. This physician reviewed the patient's past medical and psychiatric history, which includes a recent diagnosis of MRSA in her upper extremity. Additionally, we will check her thyroid hormone level, vitamin B-12 and vitamin D level to determine if any deficiencies in those areas are causing her creating her psychosis or mood disorder. We will obtain an EKG to determine her cardiac conduction status prior to changing her psychotropic medicines. This physician spoke with the patient's nurse regarding her recent bizarre behavior. The patient was particularly paranoid and irritated with the nurse. Finally, case management will be involved to ascertain the patient's history more slowly and assist with disposition planning. Con Robin MD Nov 19, 2016 15:47
[2016-11-19 17:46] VITALS: BP_SYST 120; BP_SYST 127; BP_DIAS 63; BP_DIAS 66; PULSE 80; PULSE 81; RESP 18; O2SAT 100; O2SAT 98
[2016-11-19 20:25] VITALS: BP 104/69; PULSE 81; RESP 18; TEMP 98.1; O2SAT 98
[2016-11-19] MEDS: LURASIDONE 40 MG TAB PO SCH (21:24)
[2016-11-19] MEDS: buPROPion HCL 100 MG SUSTAINED RELEASE TAB PO SCH (21:25)
[2016-11-19] MEDS: hydrOXYzine PAMOATE 25 MG CAP PO SCH (21:25)
[2016-11-19] MEDS: LORazepam 1 MG TAB PO PRN (21:31)
[2016-11-19] MEDS: traZODone HCL 50 MG TAB PO PRN (21:31)
[2016-11-20 06:20] VITALS: BP 113/66; PULSE 76; RESP 16; TEMP 97.9; O2SAT 99
[2016-11-20] MEDS: buPROPion HCL 100 MG SUSTAINED RELEASE TAB PO SCH ×2 (09:13→20:41)
[2016-11-20] MEDS: LURASIDONE 40 MG TAB PO SCH ×2 (09:13→20:41)
--- NOTE | 2016-11-20 09:23 | HHI.PYPN ---
Subjective Remarks Patient is seen for psychiatric reevaluation today along with nursing charge, patient continues to endorse moderate to severe symptomatology of depression, consisting in hopelessness, helplessness, decreased appetite, no enjoying her usual activities, thoughts of overdosing. Patient reports as a most important stressor that recent of her best friend. Patient also reports. Voices telling her "go go go go". But, she says voices has been decreasing in intensity and frequency since yesterday. Patient is fully oriented 3, compliant with medications, no significant side effects. No agitation or aggressive behavior reported. Patient has been mostly isolated and withdrawn in the unit. Review of Systems Other She doesn't have any significant somatic complaints Objective Alert: Yes [place]: Person, Place, Date, Situation Mood: Depressed Affect: Flat, Tearful Memory Intact: Immediate, Recent, Remote Hallucinations: Visual Delusions: No Delusion Type: Other (not elicited at this moment) Suicidal: Ideation (suicidal ideation with a plan of overdosing) Homicidal: Ideation (no SI) Insight/Judgment Poor Vitals/IOs Vital Signs Date Time Temp Pulse Resp B/P (MAP) Pulse Ox O2 Delivery O2 Flow Rate FiO2 11/20/16 06:20 97.9 76 16 113/66 (82) 99 11/19/16 17:46 Room Air Intake and Output 11/20/16 11/20/16 11/20/16 07:59 15:59 23:59 Intake Total 240 ml Balance 240 ml Assessment & Plan Problem List: (1) Brief psychotic disorder ICD Codes: F23 - Brief psychotic disorder Assessment & Plan: Continue current psychotropic regimen, Dr. Robin just restarted her medications yesterday. Monitor response and side effects. Motivation and psychoeducation also support provided. Will meet with psychiatric social worker in order to start coordinating a discharge plan. Assessment & Plan Estimated LOS: days Justification for Cont. Inpt. Patient is acutely psychotic and depressed, with suicidal ideation, she discontinued psychiatric hospitalization for stabilization and safety. Shawn Rosales MD Nov 20, 2016 09:23
--- NOTE | 2016-11-20 13:50 | EKG ---
Date Performed: 11/20/2016 Time Performed: 09:06:27 PTAGE: 31 years EKG: Sinus rhythm WITH FIRST DEGREE AV BLOCK MODERATE INTRAVENTRICULAR CONDUCTION DELAY NONSPECIFIC T-WAVE ABNORMALITY ABNORMAL ECG Compared to prior tracing no significant change PREVIOUS TRACING : 09/09/2016 07.25 DOCTOR: Joe Anderson Interpretating Date/Time 11/20/2016 13:47:33
[2016-11-20] MEDS: LORazepam 1 MG TAB PO PRN (17:06)
[2016-11-20 18:41] VITALS: BP 104/57; PULSE 82; RESP 17; TEMP 98; O2SAT 98
[2016-11-20] MEDS: hydrOXYzine PAMOATE 25 MG CAP PO SCH (20:41)
[2016-11-20] MEDS: traZODone HCL 50 MG TAB PO PRN (20:42)
[2016-11-21 06:10] VITALS: BP 108/54; PULSE 71; RESP 16; TEMP 98; O2SAT 99
[2016-11-21] MEDS: ACETAMINOPHEN 325 MG TAB PO PRN (09:23)
[2016-11-21] MEDS: buPROPion HCL 100 MG SUSTAINED RELEASE TAB PO SCH (09:23)
[2016-11-21] MEDS: LURASIDONE 40 MG TAB PO SCH ×2 (09:23→20:50)
[2016-11-21] MEDS ORDERED: INFLUENZA VIRUS VACCINE (QUADRIVALENT) 0.5 ML SYR IM ONE (10:00)
--- NOTE | 2016-11-21 11:25 | HHI.PYPN ---
Subjective Remarks Patient seen for psychiatric reevaluation today, patient is a sleeping her bed, easily arousable. Patient reports symptoms of depression, isolation, low self- esteem, helplessness, hopelessness, increased sensitivity to rejection and frustration, frequent mood swings, suicidal thoughts, no specific plan. She also reports hearing voices making derogatory comments about her behavior, non- commanding type. As per nursing charge, patient has been isolated, participating poorly in activities, will comply with medications, and has not presented any episode of agitation or aggressive behavior. Review of Systems Other No somatic complaints Objective Alert: Yes [place]: Person, Place, Date, Situation Mood: Depressed Affect: Flat, Tearful Memory Intact: Immediate, Recent, Remote Hallucinations: Auditory Delusions: No Delusion Type: Other (not elicited at this moment) Suicidal: Ideation (suicidal ideation with a plan of overdosing) Homicidal: Ideation (no SI) Insight/Judgment Poor Vitals/IOs Vital Signs Date Time Temp Pulse Resp B/P (MAP) Pulse Ox O2 Delivery O2 Flow Rate FiO2 11/21/16 06:10 98.0 71 16 108/54 (72) 99 11/19/16 17:46 Room Air Assessment & Plan Problem List: (1) Brief psychotic disorder ICD Codes: F23 - Brief psychotic disorder Assessment & Plan: We will increase Wellbutrin to 150 twice a day, trazodone to 100 mg at bedtime. Extensive support, motivation and psychoeducation provided. Assessment & Plan Estimated LOS: days Justification for Cont. Inpt. Patient continues to be very depressed, acutely psychotic, needs to continue psychiatric hospitalization for stabilization. Shawn Rosales MD Nov 21, 2016 11:25
[2016-11-21] MEDS: LORazepam 1 MG TAB PO PRN ×2 (12:16→21:08)
[2016-11-21 18:31] VITALS: BP 123/61; PULSE 81; RESP 18; TEMP 97.4; O2SAT 100
[2016-11-21] MEDS: buPROPion HCL 150 MG SUSTAINED RELEASE TAB PO SCH (20:50)
[2016-11-21] MEDS: hydrOXYzine PAMOATE 25 MG CAP PO SCH (20:50)
[2016-11-22 06:09] VITALS: BP 120/62; PULSE 78; RESP 16; TEMP 97.9; O2SAT 100
[2016-11-22] MEDS: buPROPion HCL 150 MG SUSTAINED RELEASE TAB PO SCH ×2 (08:46→21:39)
[2016-11-22] MEDS: LURASIDONE 40 MG TAB PO SCH ×2 (08:46→21:39)
--- NOTE | 2016-11-22 11:28 | HHI.PYPN ---
Subjective Remarks Patient seen today for psychiatric reevaluation, patient is guarded, irritable, stating that she is sleepy. Patient says that she is to have suicidal thoughts "because my mother doesn't want to take me back home and she things that I am a drug user". I spoke personally with her mother, she says that she prefers that the patient is discharged to an inpatient rehabilitation facility for her cocaine use disorder. She does not feel safe taking the patient back home. She says that she is disabled she lives with a 10 years old kid she does not feel safe with the patient in the house. As per nursing chart, the patient has been cooperative, calm, taking her medications, no significant side effects, but isolated in her room. Review of Systems Other No somatic complaint Objective Alert: Yes [place]: Person, Place, Date, Situation Mood: Depressed Affect: Flat, Tearful Memory Intact: Immediate, Recent, Remote Hallucinations: Auditory Delusions: No Delusion Type: Other (not elicited at this moment) Suicidal: Ideation (suicidal ideation with a plan of overdosing) Homicidal: Ideation (no SI) Insight/Judgment Poor Vitals/IOs Vital Signs Date Time Temp Pulse Resp B/P (MAP) Pulse Ox O2 Delivery O2 Flow Rate FiO2 11/22/16 06:09 97.9 78 16 120/62 (81) 100 11/19/16 17:46 Room Air Assessment & Plan Problem List: (1) Brief psychotic disorder ICD Codes: F23 - Brief psychotic disorder Assessment & Plan: Continue current psychotropic regimen and close monitory station of mood and psychosis. Discharge planning discussed with geriatric social worker. Assessment & Plan Estimated LOS: days Justification for Cont. Inpt. Patient has an increased risk to decompensate at a lower level of care. Shawn Rosales MD Nov 22, 2016 11:28
[2016-11-22] MEDS: LORazepam 1 MG TAB PO PRN ×2 (14:00→21:39)
[2016-11-22 18:35] VITALS: BP 133/71; PULSE 87; RESP 17; TEMP 97.2; O2SAT 99
[2016-11-22] MEDS: hydrOXYzine PAMOATE 25 MG CAP PO SCH (21:38)
[2016-11-22] MEDS: traZODone HCL 100 MG TAB PO PRN (21:39)
[2016-11-23 05:46] VITALS: BP 100/53; PULSE 79; RESP 18; TEMP 97.3; O2SAT 98
[2016-11-23] MEDS: buPROPion HCL 150 MG SUSTAINED RELEASE TAB PO SCH ×2 (08:43→21:32)
[2016-11-23] MEDS: LURASIDONE 40 MG TAB PO SCH ×2 (08:43→21:32)
--- NOTE | 2016-11-23 11:26 | HHI.PYPN ---
Subjective Remarks Patient seen today for psychiatric reevaluation, patient reports depressive symptoms related with a recent argument with her mother, she says that her mother doesn't want her back home "she is cruel and no fair with me". Patient says that she has no place to go, she feels hopeless, she feels helpless, she has been hearing voices telling her to kill herself, she says that she is not going to do it here in the unit, she contracted for safety, and she would try to control herself. No agitation, no aggressive behavior, no hostility, no prominent psychotic behavior has been described in the unit. Patient has been compliant with her medications, no significant side effects. She was witnessed when she had an argument over the phone with her mother, but she was able to be deescalating verbally. Review of Systems Other No significant somatic complaints Objective Alert: Yes [place]: Person, Place, Date, Situation Mood: Depressed Affect: Flat, Tearful Memory Intact: Immediate, Recent, Remote Hallucinations: Auditory Delusions: No Delusion Type: Other (not elicited at this moment) Suicidal: Ideation (suicidal ideation with a plan of overdosing) Homicidal: Ideation (no SI) Insight/Judgment Poor Vitals/IOs Vital Signs Date Time Temp Pulse Resp B/P (MAP) Pulse Ox O2 Delivery O2 Flow Rate FiO2 11/23/16 05:46 97.3 79 18 100/53 (69) 98 11/19/16 17:46 Room Air Assessment & Plan Problem List: (1) Brief psychotic disorder ICD Codes: F23 - Brief psychotic disorder Assessment & Plan: Patient continues to be emotionally unstable, report suicidal ideation, nonspecific plan, but he does report that she is hearing voices. Extensive support, motivation and psychoeducation provided. We'll continue current psychotropic regimen and close monitoring of mood and psychosis. (2) Unspecified psychosis ICD Codes: F29 - Unspecified psychosis not due to a substance or known physiological condition Assessment & Plan Estimated LOS: days Justification for Cont. Inpt. Patient has an elevated risk of danger to self at a lower level of care. Shawn Rosales MD Nov 23, 2016 11:26
[2016-11-23] MEDS: LORazepam 1 MG TAB PO PRN (18:29)
[2016-11-23] MEDS: hydrOXYzine PAMOATE 25 MG CAP PO SCH (21:32)
[2016-11-23] MEDS: traZODone HCL 100 MG TAB PO PRN (21:32)
[2016-11-23 21:55] VITALS: BP 122/62; PULSE 86; RESP 18; TEMP 98.1; O2SAT 100
[2016-11-24 06:42] VITALS: BP 104/50; PULSE 78; RESP 16; TEMP 98; O2SAT 98
[2016-11-24] MEDS: LURASIDONE 40 MG TAB PO SCH ×2 (10:01→22:34)
[2016-11-24] MEDS: buPROPion HCL 150 MG SUSTAINED RELEASE TAB PO SCH ×2 (10:01→22:34)
--- NOTE | 2016-11-24 13:04 | HHI.PYPN ---
Subjective Remarks Patient seen and case discussed with nurse. Labs reviewed. Patient remains anxious and internally preoccupied with auditory hallucinations. Review of Systems Except as stated in HPI: all other systems reviewed are Neg Objective Alert: Yes [place]: Person, Place, Date, Situation Mood: Depressed Affect: Flat, Tearful Memory Intact: Immediate, Recent, Remote Hallucinations: Auditory Delusions: No Delusion Type: Other (not elicited at this moment) Suicidal: Ideation (suicidal ideation with a plan of overdosing) Homicidal: Ideation (no SI) Insight/Judgment Impaired Vitals/IOs Vital Signs Date Time Temp Pulse Resp B/P (MAP) Pulse Ox O2 Delivery O2 Flow Rate FiO2 11/24/16 06:42 98.0 78 16 104/50 (89) 98 Assessment & Plan Problem List: (1) Brief psychotic disorder ICD Codes: F23 - Brief psychotic disorder (2) Unspecified psychosis ICD Codes: F29 - Unspecified psychosis not due to a substance or known physiological condition Assessment & Plan Estimated LOS: days evaluate and titrate antipsychotic medication as effectiveness appears to be minimal. Justification for Cont. Inpt. Psychotic and unable to care for self. Con Robin MD Nov 24, 2016 13:03
[2016-11-24] MEDS: LORazepam 1 MG TAB PO PRN ×2 (15:59→23:05)
[2016-11-24 18:05] VITALS: BP 108/62; PULSE 81; RESP 18; TEMP 98.6; O2SAT 96
[2016-11-24] MEDS: hydrOXYzine PAMOATE 25 MG CAP PO SCH (22:34)
[2016-11-24] MEDS: traZODone HCL 100 MG TAB PO PRN (23:05)
[2016-11-25 07:16] VITALS: BP 94/55; PULSE 73; RESP 17; TEMP 97.7; O2SAT 99
[2016-11-25] MEDS: buPROPion HCL 150 MG SUSTAINED RELEASE TAB PO SCH ×2 (09:11→21:57)
[2016-11-25] MEDS: LURASIDONE 40 MG TAB PO SCH ×2 (09:11→21:57)
--- NOTE | 2016-11-25 15:38 | HHI.PYPN ---
Subjective Remarks Patient seen, chart reviewed and case discussed with nursing. Patient continues to have auditory hallucinations and is requesting a change in medicine from this position. She is also requesting ibuprofen for headaches. Review of Systems Except as stated in HPI: all other systems reviewed are Neg Objective Alert: Yes [place]: Person, Place, Date, Situation Mood: Depressed Affect: Flat, Tearful Memory Intact: Immediate, Recent, Remote Hallucinations: Auditory Delusions: No Delusion Type: Other (not elicited at this moment) Suicidal: Ideation (suicidal ideation with a plan of overdosing) Homicidal: Ideation (no SI) Insight/Judgment Impaired Vitals/IOs Vital Signs Date Time Temp Pulse Resp B/P (MAP) Pulse Ox O2 Delivery O2 Flow Rate FiO2 11/25/16 07:16 97.7 73 17 94/55 (68) 99 Intake and Output 11/25/16 11/25/16 11/25/16 07:59 15:59 23:59 Intake Total 600 ml 480 ml Balance 600 ml 480 ml Assessment & Plan Problem List: (1) Brief psychotic disorder ICD Codes: F23 - Brief psychotic disorder (2) Unspecified psychosis ICD Codes: F29 - Unspecified psychosis not due to a substance or known physiological condition Assessment & Plan Estimated LOS: days will titrate antipsychotic medication and add ibuprofen to her when necessary list Justification for Cont. Inpt. Psychotic and unable to care for self Con Robin MD Nov 25, 2016 15:38
[2016-11-25] MEDS ORDERED: PILL SPLITTER OTHER PRN (15:45)
[2016-11-25] MEDS: ACETAMINOPHEN 325 MG TAB PO PRN (17:12)
[2016-11-25] MEDS: LORazepam 1 MG TAB PO PRN ×2 (17:12→22:43)
[2016-11-25 18:20] VITALS: BP 120/55; PULSE 79; RESP 16; TEMP 98.2; O2SAT 99
[2016-11-25] MEDS: traZODone HCL 100 MG TAB PO PRN (21:58)
[2016-11-25] MEDS: hydrOXYzine PAMOATE 25 MG CAP PO SCH (21:58)
[2016-11-26 06:18] VITALS: BP 95/51; PULSE 70; RESP 16; TEMP 97.6; O2SAT 100
[2016-11-26] MEDS: LURASIDONE 40 MG TAB PO SCH ×2 (08:38→17:55)
[2016-11-26] MEDS: buPROPion HCL 150 MG SUSTAINED RELEASE TAB PO SCH ×2 (08:38→21:17)
[2016-11-26] MEDS: ACETAMINOPHEN 325 MG TAB PO PRN (09:27)
--- NOTE | 2016-11-26 13:08 | HHI.PYPN ---
Subjective Remarks Patient seen and examined with nurse. Chart reviewed. Case discussed with nursing staff. On my examination today, the patient endorses ongoing command auditory hallucinations "to just end it." Denies any suicidal ideation. Says that she manages these voices with distraction. Ativan also helps in addition to her antipsychotic. I discuss possibility of adjusting to a different antipsychotic, but patient would like to continue with Latuda for now. Denies side effects from medications. Requesting ibuprofen for chronic back pain. No other physical complaints. Review of Systems ROS Limitations: Poor Historian Except as stated in HPI: all other systems reviewed are Neg Objective Alert: Yes [place]: Person, Place, Date, Situation Mood: Calm Affect: Blunted Memory Intact: Immediate, Recent, Remote Hallucinations: Auditory (command auditory hallucinations) Delusions: No Delusion Type: Other (no delusions) Suicidal: Ideation (denies suicidal ideation) Homicidal: Ideation (no SI) Insight/Judgment Poor Remarks No motor abnormalities noted Labs Labs reviewed. Vitals/IOs Vital Signs Date Time Temp Pulse Resp B/P (MAP) Pulse Ox O2 Delivery O2 Flow Rate FiO2 11/26/16 06:18 97.6 70 16 95/51 (66) 100 Intake and Output 11/26/16 11/26/16 11/27/16 08:00 16:00 00:00 Intake Total 240 ml 240 ml Balance 240 ml 240 ml Assessment & Plan Problem List: (1) Brief psychotic disorder ICD Codes: F23 - Brief psychotic disorder Assessment & Plan Adjust Latuda to 60mg BID with meals. To consider an alternative antipsychotic to try to bring patient's CAH under better control. Add ibuprofen for musculoskeletal pain. Check a BMP in the morning. Continue other medications and care as ordered. Justification for Cont. Inpt. 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 Risk for decompensation. Discharge Planning Pending stabilization Cachorro Pereira MD Nov 26, 2016 13:08
[2016-11-26] MEDS ORDERED: IBUPROFEN 600 MG TAB PO PRN (13:15)
[2016-11-26 18:27] VITALS: BP 156/93; PULSE 76; RESP 18; TEMP 97.7; O2SAT 99
[2016-11-26] MEDS: hydrOXYzine PAMOATE 25 MG CAP PO SCH (21:17)
[2016-11-26] MEDS: traZODone HCL 100 MG TAB PO PRN (21:17)
[2016-11-26] MEDS: LORazepam 1 MG TAB PO PRN (21:18)
[2016-11-27 06:07] VITALS: BP 101/52; PULSE 75; RESP 17; TEMP 97.4; O2SAT 99
[2016-11-27] MEDS: LURASIDONE 40 MG TAB PO SCH (08:55)
[2016-11-27] MEDS: buPROPion HCL 150 MG SUSTAINED RELEASE TAB PO SCH (08:55)
[2016-11-27] MEDS ORDERED: LURA40 PO (10:36)
[2016-11-27] MEDS ORDERED: BUPR150CR PO (10:36)
[2016-11-27] MEDS ORDERED: VIST25CA PO (10:38)
--- NOTE | 2016-11-27 10:44 | HHI.DS ---
Psychiatry Discharge Summary Inpatient Psychiatric care?: Yes Advance Directive: No Reason Not Provided: NONE Mental Health AdvanceDirective: No Health Care Proxy: No Admission Admission Date Nov 19, 2016 at 15:33 Admission Diagnosis: (1) Unspecified psychosis ICD Code: F29 - Unspecified psychosis not due to a substance or known physiological condition Brief History This is a 31-year-old female who presents voluntarily with complaints regarding one of her fingers and complaints of depression with suicidality. Patient medically cleared in the emergency department and was seen by this physician and J pod. She does admit to symptoms of depression and suicidality. She states she has been having these thoughts for several weeks and they have been increasing in severity. She indicates she could overdose on her medication if she were to attempt suicide. She was recently started on Latuda at [facility], approximately one week ago. She also takes Wellbutrin and Vistaril. She is claiming to have been hearing voices for years and continues to do so, although describes them as intermittent. She speaks at times with loose associations and is therefore a fairly poor historian. When she is not in the hospital she lives with her parents. She is positive for cocaine. Patient has been treated here previously by multiple providers and she was discharged from the inpatient service with a diagnosis of malingering according to Dr. Back. At this time the patient is unable to contract for safety. She describes depressed mood, anhedonia, feeling hopeless and helpless, diminished self-esteem, anxiety, decreased energy, irritability, etc. Tobacco Use In Past 30 Days: 5 or More Cigarettes/Day Alcohol Use: Monthly or Less Hospital Course Patient was admitted in the psychiatric unit coming from the ER due to increased visual hallucinations and aggressive behavior at home. Immediate safety measure were taken. Psychosocial and psychiatric assessment performed. Patient was restarted Latuda 20 mg twice a day, benztropine 1 mg twice a day, Wellbutrin 100 mg twice a day for depression. Medication was titrated as patient needed and as she could tolerate. She showed good response to psychotropic regimen. However, patient continued to report a low syntonic chronic auditory hallucinations of voices calling her name. In the psychiatric unit she was mostly calm, cooperative and participated in activities. Aggressive behavior and agitation were reported. Patient was widely educated and advised about the importance of avoiding the use of cocaine. We also met with her mother in several occasions by phone and she showed agreement with our plan. At the moment of the discharge patient is at baseline and she is at her lower level of risk of suicide ideation and aggression. Results Blood Pressure 101 / 52 Vital Signs Date Time Temp Pulse Resp B/P (MAP) Pulse Ox O2 Delivery O2 Flow Rate FiO2 11/27/16 06:07 97.4 75 17 101/52 (68) 99 Labs reviewed Summary of Procedures No procedures done Pending results at discharge: No Medications # of Antipsychotic meds at D/C: 1 Approp Antipsych med options 1 - Minimum of three failed multiple trials of monotherapy. 2 - Documented plan to taper to monotherapy due to previous use of multiple meds OR cross-taper in progress at D/C. 3 - Documentation of augmentation of Clozapine. 4 - Justification other than those listed in allowable values 1-3, document here : Discharge Discharge Date: Nov 27, 2016 Discharge Diagnosis: (1) Unspecified psychosis ICD Code: F29 - Unspecified psychosis not due to a substance or known physiological condition Mental Status Exam at Disch -Americans overweight woman, age appearing, for hygiene, [facility] , calm and cooperative, speech is fluent and spontaneous. Mood is okay, affect is irritable. Thought process is logical, coherent and relevant. Thought content is devoid of suicidal ideation, homicidal ideation, visual hallucinations, she reports chronic auditory hallucinations, of voices calling her name and making noise. Impulse control, insight, judgment are fair. Cognition is intact Pt Condition on Discharge: Stable Discharge Disposition: Discharge Home Discharge Instructions Diet Instructions: As Tolerated, No Restrictions Activities you can perform: Regular-No Restrictions Scheduled Appointment: Marshall Hardy Discharge Time > 30 minutes Discharge/Advance Care Plan Health Problems: (1) Brief psychotic disorder Goals to promote your health * To prevent worsening of your condition and complications * To maintain your health at the optimal level Directions to meet your goals Take your medications as prescribed Follow your dietary instruction Follow activity as directed Keep your appointments as scheduled Take your immunizations and boosters as scheduled If your symptoms worsen call your PCP, if no PCP go to Urgent Care Center or Emergency Room For 08/10 questions related to your inpatient stay or results of tests pending at discharge, please contact Dr. Shawn Rosales at Smoking is Dangerous to Your Health. Avoid second hand smoking Shawn Rosales MD Nov 27, 2016 10:44
[2016-11-27 13:57] LABS: AUTOMATED NEUTROPHIL # 2.9 TH/MM3 (1.8-7.7); BASOPHIL % 0.8 % (0.0-2.0); EOSINOPHIL # 0.1 TH/MM3 (0-0.4); EOSINOPHIL % 1.7 % (0.0-4.0); HEMATOCRIT 34.1 % (35.0-46.0); HEMO FLAGS DIFF FINAL; LYMPH % 36.7 % (9.0-44.0); LYMPHOCYTE # 1.9 TH/MM3 (1.0-4.8); MEAN CORPUSCULAR HEMOGLOBIN 28.2 PG (27.0-34.0); MEAN CORPUSCULAR HGB CONC 32.8 % (32.0-36.0); MONO % 4.2 % (0.0-8.0); NEUT % 56.6 % (16.0-70.0); PLATELET COUNT 245 TH/MM3 (150-450); RED BLOOD COUNT 3.97 MIL/MM3 (4.00-5.30); RED CELL DISTRIBUTION WIDTH 14.1 % (11.6-17.2); WHITE BLOOD COUNT 5.1 TH/MM3 (4.0-11.0)
[2016-11-27 14:16] LABS: ANION GAP 9 MEQ/L (5-15); AST (GOT) 11 U/L (15-37); BICARBONATE 26.4 MEQ/L (21.0-32.0); BLOOD UREA NITROGEN 14 MG/DL (7-18); CHLORIDE 104 MEQ/L (98-107); GLOMERULAR FILTRATION RATE 78 ML/MIN (>89); POTASSIUM 4.3 MEQ/L (3.5-5.1); SODIUM (NA) 139 MEQ/L (136-145)
[2016-11-27 14:43] LABS: ALKALINE PHOSPHATASE 71 U/L (45-117); ALT (GPT) 14 U/L (10-53); LDL CHOLESTEROL 66 MG/DL (0-99); TOTAL BILIRUBIN ADULT 0.2 MG/DL (0.2-1.0)
[2016-11-27 16:09] LABS: HEMOGLOBIN A1a 1.3 %; HEMOGLOBIN A1b 1.6 %; HEMOGLOBIN Ao 86.1 %; HEMOGLOBIN LA1C 1.9 %; HEMOGLOBIN P3 3.4 %
== END 2016-11-27 14:25 | disposition home or self-care (01) | DRG 885 ==
LOC: NEPK 08:20 → NEDA 15:33 → H260 20:29
PROVIDERS: ADMIT Psychiatry & Neurology Psychiatry; ATTEND Psychiatry & Neurology Psychiatry
DX: F23 Brief psychotic disorder (principal); F25.9 Schizoaffective disorder, unspecified; R45.851 Suicidal ideations; F31.9 Bipolar disorder, unspecified; F90.9 Attention-deficit hyperactivity disorder, unspecified type; F14.90 Cocaine use, unspecified, uncomplicated; G89.29 Other chronic pain; M54.9 Dorsalgia, unspecified; F17.200 Nicotine dependence, unspecified, uncomplicated; Z79.899 Other long term (current) drug therapy; F41.8 Other specified anxiety disorders
CPT/HCPCS: 80053; 80061; 80307; 82306; 82607; 83036; 84443; 84703; 85025; 93005; Q0177

== ENCOUNTER 2017-04-18 08:23 | Emergency (ER) | payer OTHER ==
[~2017-04-18] VITALS: Ht 167.6 cm; Wt 90.0 kg
[~2017-04-18 08:23] MED LIST changes: -BACT800T5 PO; +BUPR150CR PO; -IBUP-232 PO; +LURA40 PO; -MACR100C2 PO; -METR-1 PO; -MUPI2%T TOPICAL; +VIST25CA PO
[2017-04-18 08:39] VITALS: BP 125/83; PULSE 83; RESP 18; TEMP 98.2; O2SAT 100
[2017-04-18 09:51] LABS: AUTOMATED NEUTROPHIL # 5.1 TH/MM3 (1.8-7.7); BASOPHIL % 0.5 % (0.0-2.0); EOSINOPHIL # 0.1 TH/MM3 (0-0.4); EOSINOPHIL % 1.4 % (0.0-4.0); HEMOGLOBIN 12.5 GM/DL (11.6-15.3); LYMPH % 29.2 % (9.0-44.0); LYMPHOCYTE # 2.3 TH/MM3 (1.0-4.8); MEAN CELL VOLUME 85.7 FL (80.0-100.0); MEAN CORPUSCULAR HEMOGLOBIN 28.2 PG (27.0-34.0); MEAN CORPUSCULAR HGB CONC 32.9 % (32.0-36.0); MEAN PLATELET VOLUME 9.1 FL (7.0-11.0); MONO % 4.2 % (0.0-8.0); MONOCYTE # 0.3 TH/MM3 (0-0.9); NEUT % 64.7 % (16.0-70.0); PLATELET COUNT 294 TH/MM3 (150-450); RED BLOOD COUNT 4.44 MIL/MM3 (4.00-5.30); RED CELL DISTRIBUTION WIDTH 14.4 % (11.6-17.2); WHITE BLOOD COUNT 7.9 TH/MM3 (4.0-11.0)
[2017-04-18 09:52] LABS: BACTERIA, URINE RARE /hpf; BLOOD, URINE TRACE (NEG); GLUCOSE,URINE NEG (NEG); KETONE, URINE 10 mg/dL (NEG); MUCUS URINE MANY /lpf (OCC); NITRITE,URINE NEG (NEG); PH, URINE 5.5 (5.0-8.5); SQUAMOUS EPITHELIAL CELL URINE 9 /hpf (0-5); URINE COLOR YELLOW (YELLW/STRAW); URINE LEUKOCYTE ESTERASE SMALL (NEG)
[2017-04-18 09:57] LABS: BILIRUBIN, URINE NEG (NEG)
[2017-04-18 10:16] LABS: ACETAMINOPHEN LESS THAN 2.0 MCG/ML (10.0-30.0); ALBUMIN 3.6 GM/DL (3.4-5.0); ALKALINE PHOSPHATASE 72 U/L (45-117); ALT (GPT) 20 U/L (10-53); AST (GOT) 19 U/L (15-37); BICARBONATE 27.4 MEQ/L (21.0-32.0); BLOOD UREA NITROGEN 10 MG/DL (7-18); CALCIUM 9.5 MG/DL (8.5-10.1); CHLORIDE 106 MEQ/L (98-107); CREATININE 0.84 MG/DL (0.50-1.00); GLOMERULAR FILTRATION RATE 97 ML/MIN (>89); GLUCOSE,RANDOM 95 MG/DL (74-106); SODIUM (NA) 140 MEQ/L (136-145); TOTAL BILIRUBIN ADULT 0.3 MG/DL (0.2-1.0); TOTAL PROTEIN 8.2 GM/DL (6.4-8.2)
--- NOTE | 2017-04-18 10:40 | PD ---
HPI Chief Complaint: Psychiatric Symptoms Time Seen by Provider: 08:46 Travel History International Travel<30 days: No Contact w/Intl Traveler<30days: No Traveled to known affect area: No History of Present Illness HPI 31-year-old female presents to the emergency department under [place] act. According to law enforcement report "subject stated that she wanted to kill herself. When asked why, subject stated she felt because someone else wanted to. When asked how, subject stated that she did not know. Without care or treatment, there is substantial likelihood that Mrs. Reyes will kill herself. " Patient states that she is having suicidal thoughts and wants to kill herself. She is concerned that a drug dealer is after her and wants to kill her , and she wants to kill herself before he does. She has history of suicidal attempts 3. Reports trying to overdose on pills, cutting her wrist, and the third time she tried to overdose and cut her wrist. Reports cocaine and marijuana. Reports daily alcohol use. Denies auditory or visual hallucinations. Denies homicidal ideation. Symptoms are aggravated by cathodic ; one wanting to kill her. No known relieving factors. Unknown duration. Unknown onset. Symptoms are moderate to severe in severity. No known primary care provider. Multiple allergies as listed on the chart. History of bipolar disorder, schizophrenia, manic depression, ADD. Denies other significant past medical history. Has no medical complaints. Denies chest pain, shortness of breath, abdominal pain, vomiting, fever. No other modifying factors or associated signs and symptoms. PFSH Past Medical History Arthritis: No Asthma: No Autoimmune Disease: No Blood Disorders: No Bipolar Disorder: Yes Anxiety: Yes Depression: Yes Heart Rhythm Problems: No Chemotherapy: No Chest Pain: No Congestive Heart Failure: No COPD: No Cerebrovascular Accident: No Diminished Hearing: No Endocrine: Yes Gastrointestinal Disorders: No GERD: No Genitourinary: No Hiatal Hernia: No Immune Disorder: No Kidney Stones: No Musculoskeletal: No Neurologic: No Psychiatric: Yes (ADHD, Bipolar, Depression) Reproductive: No Respiratory: No Immunizations Current: No Migraines: No Radiation Therapy: No Renal Failure: No Sickle Cell Disease: No Sleep Apnea: No Thyroid Disease: No Ulcer: No ?: Not : 4 Para: 4 Miscarriage: 1 Ovarian Cysts: Yes (LT SIDE) Dilation and Curettage (D&C): Yes Tubal Ligation: Yes Past Surgical History Abdominal Surgery: No AICD: No Arteriovenous Shunt: No Cardiac Surgery: No Section: Yes (06,08,11,13) Ear Surgery: No Endocrine Surgery: No Eye Surgery: No Genitourinary Surgery: No Gynecologic Surgery: Yes (4 C-SECTIONS) Insulin Pump: No Joint Replacement: No Oral Surgery: No Pacemaker: No Thoracic Surgery: No Tonsillectomy: Yes Other Surgery: Yes Social History Alcohol Use: Yes (DAILY ) Tobacco Use: Yes (1.5 PPD) Substance Use: Yes (COCAINE/WEED) Allergies-Medications (Allergen,Severity, Reaction): Coded Allergies: azithromycin (Unverified Allergy, Severe, 04/18/17) levofloxacin (Unverified Allergy, Severe, 04/18/17) penicillin G (Unverified Allergy, Severe, Hives, 04/18/17) ceftriaxone (Unverified Allergy, Intermediate, 04/18/17) codeine (Unverified Allergy, Unknown, 04/18/17) morphine (Unverified Allergy, Unknown, 04/18/17) Reported Meds & Prescriptions Reported Meds & Active Scripts Active Vistaril (Hydroxyzine Pamoate) 25 Mg Cap 25 Mg PO HS 30 Days Wellbutrin SR 12 HR (Bupropion HCl) 150 Mg Tab 150 Mg PO BID Latuda (Lurasidone) 40 Mg Tab 60 Mg PO BID@0900,1800 Wellbutrin SR 12 HR (Bupropion HCl) 100 Mg Tab 100 Mg PO BID Reported Latuda (Lurasidone) 40 Mg Tab 40 Mg PO BID Review of Systems Except as stated in HPI: all other systems reviewed are Neg Physical Exam Narrative GENERAL: Well-nourished, well-developed black female patient, in no acute distress SKIN: Warm and dry. HEAD: Atraumatic. Normocephalic. EYES: Pupils equal and round. ENT: Mucosa pink and moist. NECK: Supple. Trachea midline. CARDIOVASCULAR: Regular rate and rhythm. No murmur appreciated. RESPIRATORY: No accessory muscle use. Clear to auscultation. Breath sounds equal bilaterally. GASTROINTESTINAL: Abdomen soft, non-tender, nondistended. Hepatic and splenic margins not palpable. Bowel sounds are active 4 quadrants. MUSCULOSKELETAL: No obvious deformities. No clubbing. No cyanosis. No edema. BACK: No CVA tenderness. NEUROLOGICAL: Awake and alert. Oriented 3. No obvious cranial nerve deficits. Motor grossly within normal limits. Normal speech. Moves all extremities. 5/5 strength to all extremities. PSYCHIATRIC: No delusional thought processes. No hallucinations. Data Data Last Documented VS Vital Signs Date Time Temp Pulse Resp B/P (MAP) Pulse Ox O2 Delivery O2 Flow Rate FiO2 04/18/17 08:47 83 18 04/18/17 08:39 98.2 125/83 (97) 100 Orders Orders Complete Blood Count With Diff (04/18/17 08:47) Comprehensive Metabolic Panel (04/18/17 08:47) Urinalysis - C+S If Indicated (04/18/17 08:47) Ed Urine Pregnancytest Poc (04/18/17 08:47) Psych Screen (04/18/17 08:47) Drug Screen, Random Urine (04/18/17 08:47) Alcohol (Ethanol) (04/18/17 08:47) Salicylates (Aspirin) (04/18/17 08:47) Tylenol (Acetaminophen) (04/18/17 08:47) Urine Culture (04/18/17 10:34) Sulfamet-Trimeth Ds 800-160 Mg (Bactrim (04/18/17 10:45) Diet Regular Basic (04/18/17 Lunch) Labs Laboratory Tests Test 04/18/17 09:19 White Blood Count 7.9 TH/MM3 Red Blood Count 4.44 MIL/MM3 Hemoglobin 12.5 GM/DL Hematocrit 38.0 % Mean Corpuscular Volume 85.7 FL Mean Corpuscular Hemoglobin 28.2 PG Mean Corpuscular Hemoglobin Concent 32.9 % Red Cell Distribution Width 14.4 % Platelet Count 294 TH/MM3 Mean Platelet Volume 9.1 FL Neutrophils (%) (Auto) 64.7 % Lymphocytes (%) (Auto) 29.2 % Monocytes (%) (Auto) 4.2 % Eosinophils (%) (Auto) 1.4 % Basophils (%) (Auto) 0.5 % Neutrophils # (Auto) 5.1 TH/MM3 Lymphocytes # (Auto) 2.3 TH/MM3 Monocytes # (Auto) 0.3 TH/MM3 Eosinophils # (Auto) 0.1 TH/MM3 Basophils # (Auto) 0.0 TH/MM3 CBC Comment DIFF FINAL Differential Comment Urine Color YELLOW Urine Turbidity HAZY Urine pH 5.5 Urine Specific [place] 1.034 Urine Protein 30 mg/dL Urine Glucose (UA) NEG mg/dL Urine Ketones 10 mg/dL Urine Occult Blood TRACE Urine Nitrite NEG Urine Bilirubin NEG Urine Urobilinogen 4.0 MG/DL Urine Leukocyte Esterase SMALL Urine RBC 2 /hpf Urine WBC 7 /hpf Urine Squamous Epithelial Cells 9 /hpf Urine Bacteria RARE /hpf Urine Mucus MANY /lpf Microscopic Urinalysis Comment CULT NOT INDICATED Blood Urea Nitrogen 10 MG/DL Creatinine 0.84 MG/DL Random Glucose 95 MG/DL Total Protein 8.2 GM/DL Albumin 3.6 GM/DL Calcium Level 9.5 MG/DL Alkaline Phosphatase 72 U/L Aspartate Amino Transf (AST/SGOT) 19 U/L Alanine Aminotransferase (ALT/SGPT) 20 U/L Total Bilirubin 0.3 MG/DL Sodium Level 140 MEQ/L Potassium Level 3.8 MEQ/L Chloride Level 106 MEQ/L Carbon Dioxide Level 27.4 MEQ/L Anion Gap 7 MEQ/L Estimat Glomerular Filtration Rate 97 ML/MIN Salicylates Level LESS THAN 1.7 MG/DL Urine Opiates Screen NEG Acetaminophen Level LESS THAN 2.0 MCG/ML Urine Barbiturates Screen NEG Urine Amphetamines Screen NEG Urine Benzodiazepines Screen NEG Urine Cocaine Screen POS Urine Cannabinoids Screen NEG Ethyl Alcohol Level LESS THAN 3 MG/DL MDM Medical Decision Making Medical Screen Exam Complete: Yes Emergency Medical Condition: Yes Medical Record Reviewed: Yes Differential Diagnosis Medical clearance for psychiatric admission, bipolar, schizophrenia, suicidal ideation, depression Narrative Course Patient presents under a Rowe act. Physical examination and vital signs are essentially unremarkable. Patient has no medical complaints to report. Psych screen has been ordered. If the laboratory results are unremarkable, the patient will be medically cleared for psychiatric evaluation and disposition. 1039: Urinalysis with signs of infection WBC 7, +bacteria, + leukocyte Estrace ; did not reflex to culture. Urine culture ordered. Bactrim ordered. And Bactrim prescribed for home. Diagnosis Primary Impression: Medical clearance for psychiatric admission Additional Impression: UTI (urinary tract infection) Qualified Codes: N39.0 - Urinary tract infection, site not specified; R31.9 - Hematuria, unspecified Referrals: [facility] Primary Care Physician Patient Instructions: General Instructions, Urinary Tract Infection in (ED) Med/Other Pt SpecificInfo: Prescription(s) given Scripts Sulfamethoxazole-Trimethoprim (Bactrim DS) 800-160 Mg Tab 1 TAB PO BID for Infection for 5 Days, #10 TAB 0 Refills Prov: Marly Velasquez 04/18/17 Condition: Stable Marly Velasquez Apr 18, 2017 10:40
[2017-04-18] MEDS: SULFAMETHOXAZOLE-TRIMETHOPRIM DS 800-160 MG TAB PO SCH ×2 (11:43→20:59)
[2017-04-18] MEDS ORDERED: BACT800T5 PO (13:55)
[2017-04-18 14:08] VITALS: BP 122/75; PULSE 84; RESP 18; TEMP 97.1; O2SAT 100
[2017-04-19 01:58] VITALS: BP 128/58; PULSE 85; RESP 18; O2SAT 97
--- NOTE | 2017-04-19 03:16 | PD ---
Physical Exam Date Seen by Provider: Apr 19, 2017 Time Seen by Provider: 03:15 Narrative For full history and physical examination please see previous provider's note. Data Data Last Documented VS Vital Signs Date Time Temp Pulse Resp B/P (MAP) Pulse Ox O2 Delivery O2 Flow Rate FiO2 04/19/17 01:58 85 18 128/58 (81) 97 Room Air 04/18/17 14:08 97.1 Orders Orders Complete Blood Count With Diff (04/18/17 08:47) Comprehensive Metabolic Panel (04/18/17 08:47) Urinalysis - C+S If Indicated (04/18/17 08:47) Ed Urine Pregnancytest Poc (04/18/17 08:47) Psych Screen (04/18/17 08:47) Drug Screen, Random Urine (04/18/17 08:47) Alcohol (Ethanol) (04/18/17 08:47) Salicylates (Aspirin) (04/18/17 08:47) Tylenol (Acetaminophen) (04/18/17 08:47) Urine Culture (04/18/17 10:34) Sulfamet-Trimeth Ds 800-160 Mg (Bactrim (04/18/17 10:45) Diet Regular Basic (04/18/17 Lunch) Diet Regular Basic (04/18/17 Dinner) Ed Discharge Order (04/19/17 03:15) Labs Laboratory Tests Test 04/18/17 09:19 White Blood Count 7.9 TH/MM3 Red Blood Count 4.44 MIL/MM3 Hemoglobin 12.5 GM/DL Hematocrit 38.0 % Mean Corpuscular Volume 85.7 FL Mean Corpuscular Hemoglobin 28.2 PG Mean Corpuscular Hemoglobin Concent 32.9 % Red Cell Distribution Width 14.4 % Platelet Count 294 TH/MM3 Mean Platelet Volume 9.1 FL Neutrophils (%) (Auto) 64.7 % Lymphocytes (%) (Auto) 29.2 % Monocytes (%) (Auto) 4.2 % Eosinophils (%) (Auto) 1.4 % Basophils (%) (Auto) 0.5 % Neutrophils # (Auto) 5.1 TH/MM3 Lymphocytes # (Auto) 2.3 TH/MM3 Monocytes # (Auto) 0.3 TH/MM3 Eosinophils # (Auto) 0.1 TH/MM3 Basophils # (Auto) 0.0 TH/MM3 CBC Comment DIFF FINAL Differential Comment Urine Color YELLOW Urine Turbidity HAZY Urine pH 5.5 Urine Specific [place] 1.034 Urine Protein 30 mg/dL Urine Glucose (UA) NEG mg/dL Urine Ketones 10 mg/dL Urine Occult Blood TRACE Urine Nitrite NEG Urine Bilirubin NEG Urine Urobilinogen 4.0 MG/DL Urine Leukocyte Esterase SMALL Urine RBC 2 /hpf Urine WBC 7 /hpf Urine Squamous Epithelial Cells 9 /hpf Urine Bacteria RARE /hpf Urine Mucus MANY /lpf Microscopic Urinalysis Comment CULT NOT INDICATED Blood Urea Nitrogen 10 MG/DL Creatinine 0.84 MG/DL Random Glucose 95 MG/DL Total Protein 8.2 GM/DL Albumin 3.6 GM/DL Calcium Level 9.5 MG/DL Alkaline Phosphatase 72 U/L Aspartate Amino Transf (AST/SGOT) 19 U/L Alanine Aminotransferase (ALT/SGPT) 20 U/L Total Bilirubin 0.3 MG/DL Sodium Level 140 MEQ/L Potassium Level 3.8 MEQ/L Chloride Level 106 MEQ/L Carbon Dioxide Level 27.4 MEQ/L Anion Gap 7 MEQ/L Estimat Glomerular Filtration Rate 97 ML/MIN Salicylates Level LESS THAN 1.7 MG/DL Urine Opiates Screen NEG Acetaminophen Level LESS THAN 2.0 MCG/ML Urine Barbiturates Screen NEG Urine Amphetamines Screen NEG Urine Benzodiazepines Screen NEG Urine Cocaine Screen POS Urine Cannabinoids Screen NEG Ethyl Alcohol Level LESS THAN 3 MG/DL [facility] Medical Record Reviewed: Yes Supervised Visit with EFREN: No Narrative Course Patient was brought into the emergency Department under [facility] to suicidal ideations. She was seen and evaluated, medically cleared. She was then screened by neuropsychology director, patient will be transferred to [facility]. Diagnosis Primary Impression: Medical clearance for psychiatric admission Additional Impression: UTI (urinary tract infection) Qualified Codes: N39.0 - Urinary tract infection, site not specified; R31.9 - Hematuria, unspecified Referrals: [facility] Primary Care Physician Patient Instructions: General Instructions, Urinary Tract Infection in (ED) Departure Forms: Tests/Procedures Scripts Sulfamethoxazole-Trimethoprim (Bactrim DS) 800-160 Mg Tab 1 TAB PO BID for Infection for 5 Days, #10 TAB 0 Refills Prov: RonMarly CRABTREE 04/18/17 Disposition: 65 DISC TO PSYCH CARE FACILITY Condition: Stable Mervat Marie Apr 19, 2017 03:16
== END 2017-04-19 03:17 ==
LOC: NEPD 08:23 → NEPJ 04-19 03:17
DX: N39.0 Urinary tract infection, site not specified (principal); R45.851 Suicidal ideations; F12.90 Cannabis use, unspecified, uncomplicated; F14.90 Cocaine use, unspecified, uncomplicated; F31.9 Bipolar disorder, unspecified; F20.9 Schizophrenia, unspecified; F98.8 Other specified behavioral and emotional disorders with onset usually occurring in childhood and adolescence; F41.9 Anxiety disorder, unspecified; F17.200 Nicotine dependence, unspecified, uncomplicated
CPT/HCPCS: 80053; 80307; 81001; 84703; 85025; 87086; 99285

== ENCOUNTER 2017-04-23 05:55 | Emergency (ER) | payer OTHER ==
[~2017-04-23] VITALS: Ht 167.6 cm; Wt 95.5 kg
[~2017-04-23 05:55] MED LIST changes: +BACT800T5 PO
[2017-04-23 06:01] VITALS: BP 105/65; PULSE 80; RESP 16; TEMP 98.6; O2SAT 100
--- NOTE | 2017-04-23 07:03 | PD ---
HPI Chief Complaint: Abdominal Pain Time Seen by Provider: 06:07 Travel History International Travel<30 days: No Contact w/Intl Traveler<30days: No Traveled to known affect area: No History of Present Illness HPI The patient is a 31 year old female who presents to the [facility] emergency department with a history of reportedly developing lower abdominal cramping and vaginal bleeding 2 hours prior to arrival. The patient reports that her last menstrual cycle was in February. She is concerned that she may be having a miscarriage. The patient reports that she has had a history of irregular menstrual cycles in the past. She is reportedly a with 2 prior miscarriages. She also has a history of dilation and curettage after one miscarriage and ovarian cyst resection. She denies having any new sexual partners or concerns about sexually transmitted infections. She denies having any other vaginal discharge. The patient becomes agitated when asked about her alcohol and drug use. Therefore, this history is not able to be obtained. On review of systems otherwise, the patient denies having any known recent fevers, cough, congestion, neck pain, chest pain, shortness of breath, vomiting , diarrhea, urinary symptoms, or neurologic symptoms. The patient reports that she is currently on an antibiotic for urinary tract infection. She denies being on any other medications. [facility] Past Medical History Narrative Medical The patient's past medical history is significant for bipolar disorder, attention deficit hyperactivity disorder, depression, ovarian cysts, polysubstance abuse previously. Arthritis: No Asthma: No Autoimmune Disease: No Blood Disorders: No Bipolar Disorder: Yes Anxiety: Yes Depression: Yes Heart Rhythm Problems: No Chemotherapy: No Chest Pain: No Congestive Heart Failure: No COPD: No Cerebrovascular Accident: No Diminished Hearing: No Endocrine: Yes Gastrointestinal Disorders: No GERD: No Genitourinary: No Hiatal Hernia: No Immune Disorder: No Kidney Stones: No Musculoskeletal: No Neurologic: No Psychiatric: Yes (ADHD, Bipolar, Depression) Reproductive: No Respiratory: No Immunizations Current: No Migraines: No Radiation Therapy: No Renal Failure: No Sickle Cell Disease: No Sleep Apnea: No Thyroid Disease: No Ulcer: No Tetanus Vaccination: > 5 Years Influenza Vaccination: No ?: : 6 Para: 4 Miscarriage: 2 Ovarian Cysts: Yes (LT SIDE) Dilation and Curettage (D&C): Yes Tubal Ligation: Yes Past Surgical History Narrative Surgical The patient's past surgical history is significant for C-sections 4, dilation and curettage, tonsillectomy, ovarian cyst resection, according to the record a bilateral tubal ligation, the patient is unsure of whether this is true. Abdominal Surgery: No AICD: No Arteriovenous Shunt: No Cardiac Surgery: No Section: Yes (06,08,11,13) Ear Surgery: No Endocrine Surgery: No Eye Surgery: No Genitourinary Surgery: No Gynecologic Surgery: Yes (4 C-SECTIONS) Insulin Pump: No Joint Replacement: No Oral Surgery: No Pacemaker: No Thoracic Surgery: No Tonsillectomy: Yes Other Surgery: Yes Social History Alcohol Use: No (socially) Tobacco Use: Yes (2 daily) Substance Use: Yes ( cocaine ) Allergies-Medications (Allergen,Severity, Reaction): Coded Allergies: azithromycin (Unverified Allergy, Severe, 04/24/17) levofloxacin (Unverified Allergy, Severe, 04/24/17) penicillin G (Unverified Allergy, Severe, Hives, 04/24/17) ceftriaxone (Unverified Allergy, Intermediate, 04/24/17) codeine (Unverified Allergy, Unknown, 04/24/17) morphine (Unverified Allergy, Unknown, 04/24/17) Reported Meds & Prescriptions Reported Meds & Active Scripts Active Bactrim DS (Sulfamethoxazole-Trimethoprim) 800-160 Mg Tab 1 Tab PO BID 3 Days Flagyl (Metronidazole) 250 Mg Tab 250 Mg PO TID 7 Days Bactrim DS (Sulfamethoxazole-Trimethoprim) 800-160 Mg Tab 1 Tab PO BID 5 Days Review of Systems Except as stated in HPI: all other systems reviewed are Neg General / Constitutional: No: Fever Eyes: No: Visual changes HENT: No: Headaches Cardiovascular: No: Chest Pain or Discomfort Respiratory: No: Shortness of Breath Gastrointestinal: Positive: Abdominal Pain, No: Nausea, Vomiting, Diarrhea Genitourinary: Positive: Pelvic Pain, Vaginal Bleeding, No: Dysuria Musculoskeletal: No: Pain Skin: No Rash Neurologic: No: Weakness Psychiatric: No: Depression Endocrine: No: Polydipsia Hematologic/Lymphatic: No: Easy Bruising Physical Exam Narrative General: The patient is a well-developed well-nourished female in no acute distress. Head and Neck exam: Head is normocephalic atraumatic. Eyes: EOMI, pupils are equal round and reactive to light. Nose: Midline septum with pink mucous membranes Mouth: Dentition unremarkable. Moist mucus membranes. Posterior oropharynx is not erythematous. No tonsillar hypertrophy. Uvula midline. Airway patent. Neck: No palpable lymphadenopathy. No nuchal rigidity. No thyromegaly. Cardiovascular: Regular rate and rhythm without murmurs, gallops, or rubs. Lungs: Clear to auscultation bilaterally. No wheezes, rhonchi, or rales. Abdomen: Soft, without tenderness to palpation in all 4 quadrants of the abdomen. No guarding, rebound, or rigidity. Normal bowel sounds are audible. No tenderness on palpation of McBurney's point. Negative Guzman sign. Extremities: No clubbing, cyanosis, or edema. 2+ pulses in all 4 extremities. No calf tenderness on palpation Back: No spinous process tenderness to palpation. No costovertebral angle tenderness to palpation. Neurologic Exam: Grossly nonfocal. Skin Exam: No rash noted. Intact skin that is warm and dry. Gynecologic exam: The patient was placed in the dorsal lithotomy position. Her external genitalia were examined. She had no evidence of rash or lesions. The speculum was placed into her vagina and the cervix was identified. She had a thin white discharge noted. No vaginal bleeding noted. no cervical friability. On Bimanual exam: she has no cervical motion tenderness. No adnexal tenderness or prominence noted on palpation. No uterine tenderness or enlargement noted on palpation. Data Data Last Documented VS Vital Signs Date Time Temp Pulse Resp B/P (MAP) Pulse Ox O2 Delivery O2 Flow Rate FiO2 04/23/17 06:01 98.6 80 16 105/65 (78) 100 Orders Orders Complete Blood Count With Diff (04/23/17 06:10) Comprehensive Metabolic Panel (04/23/17 06:10) C-Reactive Protein (Crp) (04/23/17 06:10) Lipase (04/23/17 06:10) Urinalysis - C+S If Indicated (04/23/17 06:10) Iv Access Insert/Monitor (04/23/17 06:10) Ecg Monitoring (04/23/17 06:10) Oximetry (04/23/17 06:10) Drug Screen, Random Urine (04/23/17 06:10) Wet Prep Profile (04/23/17 06:44) Gc And Chlamydia Pcr (04/23/17 06:44) Urine Culture (04/23/17 06:45) Ed Discharge Order (04/23/17 07:30) Labs Laboratory Tests Test 04/23/17 06:45 2 07:30 Urine Color YELLOW Urine Turbidity HAZY Urine pH 5.5 Urine Specific [place] 1.026 Urine Protein TRACE mg/dL Urine Glucose (UA) NEG mg/dL Urine Ketones NEG mg/dL Urine Occult Blood TRACE Urine Nitrite NEG Urine Bilirubin NEG Urine Urobilinogen LESS THAN 2.0 MG/DL Urine Leukocyte Esterase SMALL Urine RBC 1 /hpf Urine WBC 1 /hpf Urine Squamous Epithelial Cells 12 /hpf Urine Transitional Epithelial Cells <1 /hpf Urine Bacteria MOD /hpf Urine Mucus FEW /lpf Microscopic Urinalysis Comment CULTURE INDICATED Clue Cells (Wet Prep) PRESENT Vaginal Trichomonas (Wet Prep) NONE SEEN Vaginal Yeast (Wet Prep) NONE SEEN Urine Opiates Screen NEG Urine Barbiturates Screen NEG Urine Amphetamines Screen NEG Urine Benzodiazepines Screen NEG Urine Cocaine Screen POS Urine Cannabinoids Screen NEG Chlamydia trachomatis DNA (PCR) NOT DETECTED Neisseria gonorrhoeae DNA (PCR) DETECTED White Blood Count 6.7 TH/MM3 Red Blood Count 4.67 MIL/MM3 Hemoglobin 13.3 GM/DL Hematocrit 39.3 % Mean Corpuscular Volume 84.1 FL Mean Corpuscular Hemoglobin 28.6 PG Mean Corpuscular Hemoglobin Concent 34.0 % Red Cell Distribution Width 14.5 % Platelet Count 274 TH/MM3 Mean Platelet Volume 9.1 FL Neutrophils (%) (Auto) 57.1 % Lymphocytes (%) (Auto) 32.0 % Monocytes (%) (Auto) 7.3 % Eosinophils (%) (Auto) 3.0 % Basophils (%) (Auto) 0.6 % Neutrophils # (Auto) 3.8 TH/MM3 Lymphocytes # (Auto) 2.1 TH/MM3 Monocytes # (Auto) 0.5 TH/MM3 Eosinophils # (Auto) 0.2 TH/MM3 Basophils # (Auto) 0.0 TH/MM3 CBC Comment DIFF FINAL Differential Comment Blood Urea Nitrogen 14 MG/DL Creatinine 0.89 MG/DL Random Glucose 84 MG/DL Total Protein 8.6 GM/DL Albumin 3.7 GM/DL Calcium Level 9.5 MG/DL Alkaline Phosphatase 73 U/L Aspartate Amino Transf (AST/SGOT) 19 U/L Alanine Aminotransferase (ALT/SGPT) 20 U/L Total Bilirubin 0.2 MG/DL Sodium Level 136 MEQ/L Potassium Level 4.3 MEQ/L Chloride Level 106 MEQ/L Carbon Dioxide Level 24.2 MEQ/L Anion Gap 6 MEQ/L Estimat Glomerular Filtration Rate 91 ML/MIN C-Reactive Protein 0.90 MG/DL Lipase 238 U/L MDM Medical Decision Making Medical Screen Exam Complete: Yes Emergency Medical Condition: Yes Medical Record Reviewed: Yes Differential Diagnosis Dysfunctional uterine bleeding, versus cervicitis, versus trichomoniasis, versus yeast vaginitis, versus somatization Narrative Course During the course of the patient's emergency department visit, the patient's history, examination, and differential diagnosis were reviewed with the patient. The patient was placed on a ekg monitor tech with oximetry and frequent blood pressure monitoring. The patient had IV access ordered to be obtained, however the patient refused initially with the patient's initial nurse Ramon, however as it is close to change of shift, the oncoming nurse was asked to reassess the patient and see at this time if she is willing to have IV access obtained and blood work sent for analysis. The patient's laboratory studies were reviewed and remarkable for a Urine drug screen is positive for cocaine, urinalysis shows trace occult blood, moderate bacteria. The patient's other laboratory studies are pending at the conclusion of my shift. The patient's case was checked out to the oncoming emergency physician the disposition the patient based on the conclusion of her workup. Diagnosis Primary Impression: Abnormal uterine bleeding Scripts Metronidazole (Flagyl) 250 Mg Tab 250 MG PO TID for Infection for 7 Days, TAB 0 Refills Prov: Faith Hall MD 04/23/17 Lauren Rush MD Apr 23, 2017 07:03
[2017-04-23 07:10] LABS: BACTERIA, URINE MOD /hpf; BILIRUBIN, URINE NEG (NEG); BLOOD, URINE TRACE (NEG); GLUCOSE,URINE NEG (NEG); KETONE, URINE NEG (NEG); MUCUS URINE FEW /lpf (OCC); NITRITE,URINE NEG (NEG); PH, URINE 5.5 (5.0-8.5); SQUAMOUS EPITHELIAL CELL URINE 12 /hpf (0-5); TRANSITIONAL EPI CELLS, URINE <1 /hpf; URINE COLOR YELLOW (YELLW/STRAW); URINE LEUKOCYTE ESTERASE SMALL (NEG)
--- NOTE | 2017-04-23 07:26 | PD ---
Physical Exam Date Seen by Provider: Apr 23, 2017 Time Seen by Provider: 07:26 Narrative 31-year-old female came in with vague complaints of spotting and some pelvic pain. She was seen in the emergency room couple days ago for similar condition. She was seen by the previous ER physician. Please refer to her history and physical for further details. Out was to follow up on the vaginal cultures and wet prep and the UA. The results of back and she is positive for clue cell. He is mildly positive decided to wait for the culture and not treat her for the time being. She'll go home with a prescription for Flagyl. She was positive for cocaine as well. Data Data Last Documented VS Orders Orders Complete Blood Count With Diff (04/23/17 06:10) Comprehensive Metabolic Panel (04/23/17 06:10) C-Reactive Protein (Crp) (04/23/17 06:10) Lipase (04/23/17 06:10) Urinalysis - C+S If Indicated (04/23/17 06:10) Iv Access Insert/Monitor (04/23/17 06:10) Ecg Monitoring (04/23/17 06:10) Oximetry (04/23/17 06:10) Drug Screen, Random Urine (04/23/17 06:10) Wet Prep Profile (04/23/17 06:44) Gc And Chlamydia Pcr (04/23/17 06:44) Urine Culture (04/23/17 06:45) Ed Discharge Order (04/23/17 07:30) Labs Laboratory Tests Test 04/23/17 06:45 04/23/17 07:30 Urine Color YELLOW Urine Turbidity HAZY Urine pH 5.5 Urine Specific [place] 1.026 Urine Protein TRACE mg/dL Urine Glucose (UA) NEG mg/dL Urine Ketones NEG mg/dL Urine Occult Blood TRACE Urine Nitrite NEG Urine Bilirubin NEG Urine Urobilinogen LESS THAN 2.0 MG/DL Urine Leukocyte Esterase SMALL Urine RBC 1 /hpf Urine WBC 1 /hpf Urine Squamous Epithelial Cells 12 /hpf Urine Transitional Epithelial Cells <1 /hpf Urine Bacteria MOD /hpf Urine Mucus FEW /lpf Microscopic Urinalysis Comment CULTURE INDICATED Clue Cells (Wet Prep) PRESENT Vaginal Trichomonas (Wet Prep) NONE SEEN Vaginal Yeast (Wet Prep) NONE SEEN Urine Opiates Screen NEG Urine Barbiturates Screen NEG Urine Amphetamines Screen NEG Urine Benzodiazepines Screen NEG Urine Cocaine Screen POS Urine Cannabinoids Screen NEG Chlamydia trachomatis DNA (PCR) NOT DETECTED Neisseria gonorrhoeae DNA (PCR) DETECTED White Blood Count 6.7 TH/MM3 Red Blood Count 4.67 MIL/MM3 Hemoglobin 13.3 GM/DL Hematocrit 39.3 % Mean Corpuscular Volume 84.1 FL Mean Corpuscular Hemoglobin 28.6 PG Mean Corpuscular Hemoglobin Concent 34.0 % Red Cell Distribution Width 14.5 % Platelet Count 274 TH/MM3 Mean Platelet Volume 9.1 FL Neutrophils (%) (Auto) 57.1 % Lymphocytes (%) (Auto) 32.0 % Monocytes (%) (Auto) 7.3 % Eosinophils (%) (Auto) 3.0 % Basophils (%) (Auto) 0.6 % Neutrophils # (Auto) 3.8 TH/MM3 Lymphocytes # (Auto) 2.1 TH/MM3 Monocytes # (Auto) 0.5 TH/MM3 Eosinophils # (Auto) 0.2 TH/MM3 Basophils # (Auto) 0.0 TH/MM3 CBC Comment DIFF FINAL Differential Comment Blood Urea Nitrogen 14 MG/DL Creatinine 0.89 MG/DL Random Glucose 84 MG/DL Total Protein 8.6 GM/DL Albumin 3.7 GM/DL Calcium Level 9.5 MG/DL Alkaline Phosphatase 73 U/L Aspartate Amino Transf (AST/SGOT) 19 U/L Alanine Aminotransferase (ALT/SGPT) 20 U/L Total Bilirubin 0.2 MG/DL Sodium Level 136 MEQ/L Potassium Level 4.3 MEQ/L Chloride Level 106 MEQ/L Carbon Dioxide Level 24.2 MEQ/L Anion Gap 6 MEQ/L Estimat Glomerular Filtration Rate 91 ML/MIN C-Reactive Protein 0.90 MG/DL Lipase 238 U/L [facility] Supervised Visit with EFREN: No Diagnosis Primary Impression: Bacterial vaginosis Additional Impression: Cocaine abuse Referrals: Primary Care Physician Additional Instruction: Take the medication as per the prescription direction. You must have protected sex with condoms only for next 3 weeks. If any of your vaginal cultures come back positive we'll call you for treatment. Please follow-up with your [employer]. He should not be using cocaine since its very dangerous for health. Especially with her ongoing psychiatric illness and medications. Med/Other Pt SpecificInfo: Prescription(s) given Scripts Metronidazole (Flagyl) 250 Mg Tab 250 MG PO TID for Infection for 7 Days, TAB 0 Refills Prov: Faith Hall MD 04/23/17 Disposition: 01 DISCHARGE HOME Condition: Stable Faith Hall MD Apr 23, 2017 07:26
[2017-04-23] MEDS ORDERED: METR250 PO (07:29)
[2017-04-23 07:41] LABS: AUTOMATED NEUTROPHIL # 3.8 TH/MM3 (1.8-7.7); BASOPHIL % 0.6 % (0.0-2.0); EOSINOPHIL # 0.2 TH/MM3 (0-0.4); HEMATOCRIT 39.3 % (35.0-46.0); HEMOGLOBIN 13.3 GM/DL (11.6-15.3); LYMPHOCYTE # 2.1 TH/MM3 (1.0-4.8); MEAN CELL VOLUME 84.1 FL (80.0-100.0); MEAN CORPUSCULAR HEMOGLOBIN 28.6 PG (27.0-34.0); MEAN PLATELET VOLUME 9.1 FL (7.0-11.0); MONO % 7.3 % (0.0-8.0); MONOCYTE # 0.5 TH/MM3 (0-0.9); NEUT % 57.1 % (16.0-70.0); PLATELET COUNT 274 TH/MM3 (150-450); RED BLOOD COUNT 4.67 MIL/MM3 (4.00-5.30); RED CELL DISTRIBUTION WIDTH 14.5 % (11.6-17.2); WHITE BLOOD COUNT 6.7 TH/MM3 (4.0-11.0)
[2017-04-23 07:59] LABS: ALBUMIN 3.7 GM/DL (3.4-5.0); AST (GOT) 19 U/L (15-37); BICARBONATE 24.2 MEQ/L (21.0-32.0); BLOOD UREA NITROGEN 14 MG/DL (7-18); CALCIUM 9.5 MG/DL (8.5-10.1); CHLORIDE 106 MEQ/L (98-107); CREATININE 0.89 MG/DL (0.50-1.00); GLOMERULAR FILTRATION RATE 91 ML/MIN (>89); GLUCOSE,RANDOM 84 MG/DL (74-106); SODIUM (NA) 136 MEQ/L (136-145)
[2017-04-23 08:02] LABS: ALKALINE PHOSPHATASE 73 U/L (45-117); ALT (GPT) 20 U/L (10-53); TOTAL BILIRUBIN ADULT 0.2 MG/DL (0.2-1.0); TOTAL PROTEIN 8.6 GM/DL (6.4-8.2)
[2017-04-24] MEDS ORDERED: BACT800T5 PO (09:12)
== END 2017-04-23 08:23 | disposition home or self-care (01) ==
LOC: NEPE 05:55
DX: N76.0 Acute vaginitis (principal); B96.89 Other specified bacterial agents as the cause of diseases classified elsewhere; F14.10 Cocaine abuse, uncomplicated; F17.200 Nicotine dependence, unspecified, uncomplicated
CPT/HCPCS: 80053; 80307; 81001; 83690; 85025; 86140; 87086; 87210; 87491; 87591; 99284

== ENCOUNTER 2017-04-24 07:36 | Emergency (ER) | payer OTHER ==
[~2017-04-24] VITALS: Ht 167.6 cm; Wt 100.0 kg
[~2017-04-24 07:36] MED LIST changes: -BUPR100CR PO; -BUPR150CR PO; -LURA40 PO; +METR250 PO; -VIST25CA PO
[2017-04-24 08:07] VITALS: BP 109/59; PULSE 83; RESP 18; TEMP 97.8; O2SAT 98
[2017-04-24 08:35] LABS: AUTOMATED NEUTROPHIL # 4.1 TH/MM3 (1.8-7.7); BASOPHIL % 0.7 % (0.0-2.0); EOSINOPHIL # 0.2 TH/MM3 (0-0.4); EOSINOPHIL % 2.4 % (0.0-4.0); HEMATOCRIT 37.2 % (35.0-46.0); HEMOGLOBIN 12.4 GM/DL (11.6-15.3); LYMPH % 31.6 % (9.0-44.0); LYMPHOCYTE # 2.2 TH/MM3 (1.0-4.8); MEAN CELL VOLUME 84.1 FL (80.0-100.0); MEAN CORPUSCULAR HGB CONC 33.3 % (32.0-36.0); MEAN PLATELET VOLUME 9.3 FL (7.0-11.0); MONO % 5.6 % (0.0-8.0); MONOCYTE # 0.4 TH/MM3 (0-0.9); NEUT % 59.7 % (16.0-70.0); PLATELET COUNT 260 TH/MM3 (150-450); RED BLOOD COUNT 4.42 MIL/MM3 (4.00-5.30); RED CELL DISTRIBUTION WIDTH 14.4 % (11.6-17.2); WHITE BLOOD COUNT 6.8 TH/MM3 (4.0-11.0)
[2017-04-24 08:41] LABS: BACTERIA, URINE MOD /hpf; BILIRUBIN, URINE NEG (NEG); BLOOD, URINE TRACE (NEG); GLUCOSE,URINE NEG (NEG); KETONE, URINE NEG (NEG); MUCUS URINE MANY /lpf (OCC); NITRITE,URINE NEG (NEG); PH, URINE 5.5 (5.0-8.5); SQUAMOUS EPITHELIAL CELL URINE 47 /hpf (0-5); URINE COLOR YELLOW (YELLW/STRAW); URINE LEUKOCYTE ESTERASE MOD (NEG)
[2017-04-24 09:01] LABS: ALBUMIN 3.6 GM/DL (3.4-5.0); AST (GOT) 18 U/L (15-37); BICARBONATE 26.8 MEQ/L (21.0-32.0); BLOOD UREA NITROGEN 14 MG/DL (7-18); CALCIUM 8.6 MG/DL (8.5-10.1); CHLORIDE 107 MEQ/L (98-107); CREATININE 0.92 MG/DL (0.50-1.00); GLOMERULAR FILTRATION RATE 87 ML/MIN (>89); GLUCOSE,RANDOM 99 MG/DL (74-106); SODIUM (NA) 139 MEQ/L (136-145)
[2017-04-24 09:09] LABS: ALKALINE PHOSPHATASE 70 U/L (45-117); ALT (GPT) 25 U/L (10-53); TOTAL BILIRUBIN ADULT 0.3 MG/DL (0.2-1.0); TOTAL PROTEIN 8.4 GM/DL (6.4-8.2)
--- NOTE | 2017-04-24 09:09 | PD ---
HPI Chief Complaint: Psychiatric Symptoms Time Seen by Provider: 07:59 Travel History International Travel<30 days: No Contact w/Intl Traveler<30days: No Traveled to known affect area: No History of Present Illness HPI 31-year-old female presents to the emergency department under Rowe act. According to law enforcement report "female stated that she is bipolar and schizophrenic and off of her meds. Female stated she just wants to end it." Patient reports feeling suicidal for "a while." Today is worse. She says she went to [facility] and they did not give her any medications and did not help her. She came here today for help. Reports feeling suicidal because "feels like she stuck in her right." Denies current plan. Denies homicidal ideations. Denies auditory or visual hallucinations. Reports using cocaine yesterday. Reports occasional alcohol use. Has no emergent medical complaints at this time. Denies chest pain, shortness of breath, abdominal pain, nausea, vomiting, fevers , change in stool or urine. No primary care provider. No psychiatrist. Denies any past medical history other than bipolar and schizophrenia. Multiple allergies as listed on the chart. No other modifying factors or associated signs and symptoms. PFSH Past Medical History Arthritis: No Asthma: No Autoimmune Disease: No Blood Disorders: No Bipolar Disorder: Yes Anxiety: Yes Depression: Yes Heart Rhythm Problems: No Chemotherapy: No Chest Pain: No Congestive Heart Failure: No COPD: No Cerebrovascular Accident: No Diminished Hearing: No Endocrine: Yes Gastrointestinal Disorders: No GERD: No Genitourinary: No Hiatal Hernia: No Immune Disorder: No Kidney Stones: No Musculoskeletal: No Neurologic: No Psychiatric: Yes (ADHD, Bipolar, Depression) Reproductive: No Respiratory: No Immunizations Current: No Migraines: No Radiation Therapy: No Renal Failure: No Sickle Cell Disease: No Sleep Apnea: No Thyroid Disease: No Ulcer: No ?: Not : 6 Para: 4 Miscarriage: 2 Ovarian Cysts: Yes (LT SIDE) Dilation and Curettage (D&C): Yes Tubal Ligation: Yes Past Surgical History Abdominal Surgery: No AICD: No Arteriovenous Shunt: No Cardiac Surgery: No Section: Yes (06,08,11,13) Ear Surgery: No Endocrine Surgery: No Eye Surgery: No Genitourinary Surgery: No Gynecologic Surgery: Yes (4 C-SECTIONS) Insulin Pump: No Joint Replacement: No Oral Surgery: No Pacemaker: No Thoracic Surgery: No Tonsillectomy: Yes Other Surgery: Yes Social History Alcohol Use: No (socially) Tobacco Use: Yes Substance Use: Yes (COCAINE AND MARAJUIANA ) Allergies-Medications (Allergen,Severity, Reaction): Coded Allergies: azithromycin (Unverified Allergy, Severe, 04/24/17) levofloxacin (Unverified Allergy, Severe, 04/24/17) penicillin G (Unverified Allergy, Severe, Hives, 04/24/17) ceftriaxone (Unverified Allergy, Intermediate, 04/24/17) codeine (Unverified Allergy, Unknown, 04/24/17) morphine (Unverified Allergy, Unknown, 04/24/17) Reported Meds & Prescriptions Reported Meds & Active Scripts Active Bactrim DS (Sulfamethoxazole-Trimethoprim) 800-160 Mg Tab 1 Tab PO BID 3 Days Flagyl (Metronidazole) 250 Mg Tab 250 Mg PO TID 7 Days Bactrim DS (Sulfamethoxazole-Trimethoprim) 800-160 Mg Tab 1 Tab PO BID 5 Days Review of Systems Except as stated in HPI: all other systems reviewed are Neg Physical Exam Narrative GENERAL: Well-nourished, well-developed black female patient, in no acute distress SKIN: Warm and dry. HEAD: Atraumatic. Normocephalic. EYES: Pupils equal and round. ENT: Mucosa pink and moist. NECK: Supple. Trachea midline. CARDIOVASCULAR: Regular rate and rhythm. No murmur appreciated. RESPIRATORY: No accessory muscle use. Clear to auscultation. Breath sounds equal bilaterally. GASTROINTESTINAL: Abdomen soft, non-tender, nondistended. Hepatic and splenic margins not palpable. Bowel sounds are active 4 quadrants. MUSCULOSKELETAL: No obvious deformities. No clubbing. No cyanosis. No edema. BACK: No CVA tenderness. NEUROLOGICAL: Awake and alert. Oriented 3. No obvious cranial nerve deficits. Motor grossly within normal limits. Normal speech. Moves all extremities. 5/5 strength to all extremities. PSYCHIATRIC: No delusional thought processes. No hallucinations. Data Data Last Documented VS Vital Signs Date Time Temp Pulse Resp B/P (MAP) Pulse Ox O2 Delivery O2 Flow Rate FiO2 04/24/17 08:10 83 16 04/24/17 08:07 97.8 109/59 (76) 98 Orders Orders Complete Blood Count With Diff (04/24/17 07:58) Comprehensive Metabolic Panel (04/24/17 07:58) Thyroid Stimulating Hormone (04/24/17 07:58) Urinalysis - C+S If Indicated (04/24/17 07:58) Ed Urine Pregnancytest Poc (04/24/17 07:58) Psych Screen (04/24/17 07:58) Drug Screen, Random Urine (04/24/17 07:58) Alcohol (Ethanol) (04/24/17 07:58) Salicylates (Aspirin) (04/24/17 07:58) Tylenol (Acetaminophen) (04/24/17 07:58) Diet Regular Basic (04/24/17 Breakfast) Urine Culture (04/24/17 08:00) Sulfamet-Trimeth Ds 800-160 Mg (Bactrim (04/24/17 09:15) Labs Laboratory Tests Test 04/24/17 08:00 White Blood Count 6.8 TH/MM3 Red Blood Count 4.42 MIL/MM3 Hemoglobin 12.4 GM/DL Hematocrit 37.2 % Mean Corpuscular Volume 84.1 FL Mean Corpuscular Hemoglobin 28.0 PG Mean Corpuscular Hemoglobin Concent 33.3 % Red Cell Distribution Width 14.4 % Platelet Count 260 TH/MM3 Mean Platelet Volume 9.3 FL Neutrophils (%) (Auto) 59.7 % Lymphocytes (%) (Auto) 31.6 % Monocytes (%) (Auto) 5.6 % Eosinophils (%) (Auto) 2.4 % Basophils (%) (Auto) 0.7 % Neutrophils # (Auto) 4.1 TH/MM3 Lymphocytes # (Auto) 2.2 TH/MM3 Monocytes # (Auto) 0.4 TH/MM3 Eosinophils # (Auto) 0.2 TH/MM3 Basophils # (Auto) 0.0 TH/MM3 CBC Comment DIFF FINAL Differential Comment Urine Color YELLOW Urine Turbidity CLOUDY Urine pH 5.5 Urine Specific Raven 1.033 Urine Protein 30 mg/dL Urine Glucose (UA) NEG mg/dL Urine Ketones NEG mg/dL Urine Occult Blood TRACE Urine Nitrite NEG Urine Bilirubin NEG Urine Urobilinogen 2.0 MG/DL Urine Leukocyte Esterase MOD Urine RBC 2 /hpf Urine WBC 3 /hpf Urine Squamous Epithelial Cells 47 /hpf Urine Bacteria MOD /hpf Urine Mucus MANY /lpf Microscopic Urinalysis Comment CULTURE INDICATED Blood Urea Nitrogen 14 MG/DL Creatinine 0.92 MG/DL Random Glucose 99 MG/DL Total Protein 8.4 GM/DL Albumin 3.6 GM/DL Calcium Level 8.6 MG/DL Alkaline Phosphatase 70 U/L Aspartate Amino Transf (AST/SGOT) 18 U/L Alanine Aminotransferase (ALT/SGPT) 25 U/L Total Bilirubin 0.3 MG/DL Sodium Level 139 MEQ/L Potassium Level 3.6 MEQ/L Chloride Level 107 MEQ/L Carbon Dioxide Level 26.8 MEQ/L Anion Gap 5 MEQ/L Estimat Glomerular Filtration Rate 87 ML/MIN Thyroid Stimulating Hormone 3rd Gen 2.280 uIU/ML Salicylates Level LESS THAN 1.7 MG/DL Acetaminophen Level LESS THAN 2.0 MCG/ML Urine Barbiturates Screen NEG Urine Benzodiazepines Screen NEG Ethyl Alcohol Level LESS THAN 3 MG/DL MDM Medical Decision Making Medical Screen Exam Complete: Yes Emergency Medical Condition: Yes Medical Record Reviewed: Yes Differential Diagnosis Medical clearance for psychiatric admission, bipolar disorder, schizophrenia, cocaine abuse Narrative Course Patient presents under a Rowe act. Physical examination and vital signs are essentially unremarkable. Patient has no medical complaints to report. Psych screen has been ordered. If the laboratory results are unremarkable, the patient will be medically cleared for psychiatric evaluation and disposition. 0910: Urinalysis for signs of infection. I did see this patient on April 18, 2017 and treated her with Bactrim for UTI. I reviewed the medical record and urine culture with no growth and probable contaminants. Bactrim ordered and prescribed for home. Diagnosis Primary Impression: Medical clearance for psychiatric admission Additional Impression: UTI (urinary tract infection) Qualified Codes: N39.0 - Urinary tract infection, site not specified Med/Other Pt SpecificInfo: Prescription(s) given Scripts Sulfamethoxazole-Trimethoprim (Bactrim DS) 800-160 Mg Tab 1 TAB PO BID for Infection for 3 Days, #6 TAB 0 Refills Prov: Marly Velasquez 04/24/17 Marly Velasquez Apr 24, 2017 09:09
[2017-04-24] MEDS ORDERED: BACT800T5 PO (09:12)
[2017-04-24] MEDS: SULFAMETHOXAZOLE-TRIMETHOPRIM DS 800-160 MG TAB PO SCH ×2 (09:15→20:54)
[2017-04-24 09:17] LABS: ACETAMINOPHEN LESS THAN 2.0 MCG/ML (10.0-30.0)
[2017-04-24 11:00] VITALS: BP 129/81; PULSE 86; RESP 20; TEMP 97.3; O2SAT 100
[2017-04-24 18:05] VITALS: BP 106/53; PULSE 84; RESP 18
[2017-04-25 06:40] VITALS: BP 130/63; PULSE 75; RESP 16; TEMP 97.3; O2SAT 99
[2017-04-25] MEDS: SULFAMETHOXAZOLE-TRIMETHOPRIM DS 800-160 MG TAB PO SCH (09:00)
--- NOTE | 2017-04-25 10:35 | PD ---
Physical Exam Time Seen by Provider: 10:34 Data Data Last Documented VS Vital Signs Date Time Temp Pulse Resp B/P (MAP) Pulse Ox O2 Delivery O2 Flow Rate FiO2 04/25/17 06:40 97.3 75 16 130/63 (85) 99 Room Air Orders Orders Complete Blood Count With Diff (04/24/17 07:58) Comprehensive Metabolic Panel (04/24/17 07:58) Thyroid Stimulating Hormone (04/24/17 07:58) Urinalysis - C+S If Indicated (04/24/17 07:58) Ed Urine Pregnancytest Poc (04/24/17 07:58) Psych Screen (04/24/17 07:58) Drug Screen, Random Urine (04/24/17 07:58) Alcohol (Ethanol) (04/24/17 07:58) Salicylates (Aspirin) (04/24/17 07:58) Tylenol (Acetaminophen) (04/24/17 07:58) Diet Regular Basic (04/24/17 Breakfast) Urine Culture (04/24/17 08:00) Sulfamet-Trimeth Ds 800-160 Mg (Bactrim (04/24/17 09:15) Diet Regular Basic (04/24/17 Dinner) Diet Regular Basic (04/25/17 Breakfast) Diet Regular Basic (04/25/17 Lunch) Ed Discharge Order (04/25/17 10:34) Labs Laboratory Tests Test 04/24/17 08:00 White Blood Count 6.8 TH/MM3 Red Blood Count 4.42 MIL/MM3 Hemoglobin 12.4 GM/DL Hematocrit 37.2 % Mean Corpuscular Volume 84.1 FL Mean Corpuscular Hemoglobin 28.0 PG Mean Corpuscular Hemoglobin Concent 33.3 % Red Cell Distribution Width 14.4 % Platelet Count 260 TH/MM3 Mean Platelet Volume 9.3 FL Neutrophils (%) (Auto) 59.7 % Lymphocytes (%) (Auto) 31.6 % Monocytes (%) (Auto) 5.6 % Eosinophils (%) (Auto) 2.4 % Basophils (%) (Auto) 0.7 % Neutrophils # (Auto) 4.1 TH/MM3 Lymphocytes # (Auto) 2.2 TH/MM3 Monocytes # (Auto) 0.4 TH/MM3 Eosinophils # (Auto) 0.2 TH/MM3 Basophils # (Auto) 0.0 TH/MM3 CBC Comment DIFF FINAL Differential Comment Urine Color YELLOW Urine Turbidity CLOUDY Urine pH 5.5 Urine Specific Brady 1.033 Urine Protein 30 mg/dL Urine Glucose (UA) NEG mg/dL Urine Ketones NEG mg/dL Urine Occult Blood TRACE Urine Nitrite NEG Urine Bilirubin NEG Urine Urobilinogen 2.0 MG/DL Urine Leukocyte Esterase MOD Urine RBC 2 /hpf Urine WBC 3 /hpf Urine Squamous Epithelial Cells 47 /hpf Urine Bacteria MOD /hpf Urine Mucus MANY /lpf Microscopic Urinalysis Comment CULTURE INDICATED Blood Urea Nitrogen 14 MG/DL Creatinine 0.92 MG/DL Random Glucose 99 MG/DL Total Protein 8.4 GM/DL Albumin 3.6 GM/DL Calcium Level 8.6 MG/DL Alkaline Phosphatase 70 U/L Aspartate Amino Transf (AST/SGOT) 18 U/L Alanine Aminotransferase (ALT/SGPT) 25 U/L Total Bilirubin 0.3 MG/DL Sodium Level 139 MEQ/L Potassium Level 3.6 MEQ/L Chloride Level 107 MEQ/L Carbon Dioxide Level 26.8 MEQ/L Anion Gap 5 MEQ/L Estimat Glomerular Filtration Rate 87 ML/MIN Thyroid Stimulating Hormone 3rd Gen 2.280 uIU/ML Salicylates Level LESS THAN 1.7 MG/DL Urine Opiates Screen NEG Acetaminophen Level LESS THAN 2.0 MCG/ML Urine Barbiturates Screen NEG Urine Amphetamines Screen NEG Urine Benzodiazepines Screen NEG Urine Cocaine Screen POS Urine Cannabinoids Screen NEG Ethyl Alcohol Level LESS THAN 3 MG/DL [facility] Medical Record Reviewed: Yes Supervised Visit with EFREN: No Narrative Course Please see previous provider's notes. This patient's Rowe act has been lifted by the psychiatry team. She has been cleared by psychiatry. She plans on following up with [facility] Felician[facility]. She has no additional medical issues old warrant further hospitalization. She was prescribed Bactrim by the previous provider for possible UTI. Stable for discharge. Diagnosis Primary Impression: Medical clearance for psychiatric admission Additional Impression: UTI (urinary tract infection) Qualified Codes: N39.0 - Urinary tract infection, site not specified Scripts Sulfamethoxazole-Trimethoprim (Bactrim DS) 800-160 Mg Tab 1 TAB PO BID for Infection for 3 Days, #6 TAB 0 Refills Prov: Marly Velasquez 04/24/17 Norman Scherer Apr 25, 2017 10:35
--- NOTE | 2017-04-25 10:46 | PD ---
History of Present Illness Chief Complaint: Psychiatric Symptoms Time Seen by Provider: 10:00 Travel History International Travel<30 Days: No Contact w/Intl Traveler<30days: No Known affected area: No Legal Status Legal Status: Rowe Act Rowe Act Signed By: Pedro Rowe Act Comment: Signed by [facility] Officer [place] History of Present Illness: History of Present Illness HPI 31-year-old female with history of adjustment disorder, cocaine abuse disorder who presents to the emergency department under Rowe act initiated by [place]. According to the report "female stated that she is bipolar and schizophrenic and off of her meds. Female stated she just wants to end it." Apparently the patient contacted the police to report above-noted statement. She did not attempt to harm herself in any way. The patient reported to the ED provider that " she had been feeling suicidal for a while and that she went to [facility] and that they did not give her any making medication and did not help her. That she came here today for help". Reports feeling suicidal because "feels like she stuck in her right." Denies current plan. Denies homicidal ideations. Denies auditory or visual hallucinations". Upon arrival to the ED the patient appeared very tired and reported that she had not slept for approximately 4 days and that she had been using crack during those 4 days. She also advised the psychiatric screener that she would like substance abuse treatment. Electronic medical record is reviewed. The patient was seen and evaluated here at [facility] on April 18, 2017. At that time she was sent to [facility] for further treatment. The patient's current toxicology is positive for cocaine. Patient has been monitored here in secure environment for over 24 hours with no behavioral concerns and no suicidality. This morning she is asleep but is arousable. She seems somewhat upset that she has been awoken. The patient speech is clear, logical and goal-directed. There is no evidence of any psychosis, no naomi and no hypomania. She minimizes her continued use of cocaine and becomes upset when she is confronted on her continued use of substances. She tells me that the medication that was given to her at [facility], which was Vistaril, did not help her much. She does not verbalize an active suicidal plan. She does state that she does not feel safe if she were to be discharge as she does not have a place to go. PFSH Past Medical History Arthritis: No Asthma: No Autoimmune Disease: No Blood Disorders: No Bipolar Disorder: Yes Anxiety: Yes Depression: Yes Heart Rhythm Problems: No Chemotherapy: No Chest Pain: No Congestive Heart Failure: No COPD: No Cerebrovascular Accident: No Diminished Hearing: No Endocrine: Yes Gastrointestinal Disorders: No GERD: No Genitourinary: No Hiatal Hernia: No Immune Disorder: No Kidney Stones: No Musculoskeletal: No Neurologic: No Psychiatric: Yes (ADHD, Bipolar, Depression) Reproductive: No Respiratory: No Immunizations Current: No Migraines: No Radiation Therapy: No Renal Failure: No Sickle Cell Disease: No Sleep Apnea: No Thyroid Disease: No Ulcer: No ?: Not : 6 Para: 4 Miscarriage: 2 Ovarian Cysts: Yes (LT SIDE) Dilation and Curettage (D&C): Yes Tubal Ligation: Yes Past Surgical History Abdominal Surgery: No AICD: No Arteriovenous Shunt: No Cardiac Surgery: No Section: Yes (06,08,11,13) Ear Surgery: No Endocrine Surgery: No Eye Surgery: No Genitourinary Surgery: No Gynecologic Surgery: Yes (4 C-SECTIONS) Insulin Pump: No Joint Replacement: No Oral Surgery: No Pacemaker: No Thoracic Surgery: No Tonsillectomy: Yes Other Surgery: Yes Psychiatric History Psychiatric History Hx Psychiatric Treatment: Per pt, she was recently treated at [facility]...though she denies Hx of psychiatric tx hx. [facility] April 19, 2017. History of Inpatient Treatment: Yes ([facility]) Guns or firearms in home: No Social History Divorce female who is currently homeless. Has 4 children, unemployed. Hx Alcohol Use: No (socially) Hx Tobacco Use: Yes Hx Substance Use: Yes (M[place] Abuse per pt. ) Substance Use Type: Crack, Cocaine Other Substances Used: 1 1/2 ppd cigarettes, marajuana daily Hx of Substance Use Treatment: No Family Psychiatric History Negative Allergies-Medications (Allergen,Severity, Reaction): Coded Allergies: azithromycin (Unverified Allergy, Severe, 04/24/17) levofloxacin (Unverified Allergy, Severe, 04/24/17) penicillin G (Unverified Allergy, Severe, Hives, 04/24/17) ceftriaxone (Unverified Allergy, Intermediate, 04/24/17) codeine (Unverified Allergy, Unknown, 04/24/17) morphine (Unverified Allergy, Unknown, 04/24/17) Reported Meds & Prescriptions Reported Meds & Active Scripts Active Bactrim DS (Sulfamethoxazole-Trimethoprim) 800-160 Mg Tab 1 Tab PO BID 3 Days Flagyl (Metronidazole) 250 Mg Tab 250 Mg PO TID 7 Days Bactrim DS (Sulfamethoxazole-Trimethoprim) 800-160 Mg Tab 1 Tab PO BID 5 Days Review of Systems Psychiatric: DENIES: Anxiety, Confusion, Mood changes, Depression, Hallucinations, Agitation, Suicidal Ideation, Homicidal Ideation, Delusions Except as stated in HPI: all other systems reviewed are Neg Mental Status Examination Appearance: Appropriate (Dressed in hospital gown with fair hygiene) Consciousness: Alert Orientation: x4 Motor Activity: Normal gait Speech: Unremarkable Language: Adequate Fund of Knowledge: Adequate Attention and Concentration: Adequate Memory: Unremarkable Mood: Appropriate Affect: Appropriate Thought Process & Associations: Intact Thought Content: Appropriate Hallucination Type: None Delusion Type: None Suicidal Ideation: No Suicidal Plan: No Suicidal Intention: No Homicidal Ideation: No Homicidal Plan: No Homicidal Intention: No Insight: Poor Judgment: Impulsive MDM Medical Decision Making Medical Record Reviewed: Yes Assessment/Plan 31-year-old female with history of adjustment disorder, cocaine abuse disorder who presents to the emergency department under Rowe act initiated by [place] [employer]. According to the report "female stated that she is bipolar and schizophrenic and off of her meds. Female stated she just wants to end it." Apparently the patient contacted the police to report above-noted statement. She did not attempt to harm herself in any way. The patient reported to the ED provider that " she had been feeling suicidal for a while and that she went to [facility] and that they did not give her any making medication and did not help her. That she came here today for help" Patient has been monitored and has not presented any behavioral concerns and no suicidality. Patient is angry that she is not being admitted to our inpatient psychiatric unit. She states that she was discharged from [facility] but that " they didn't keep me there long ". Also reported to nurse screener that she "would like substance abuse tx". She is asking for us to transport her to [facility]. help which indicates that she is future oriented. I recommend outpatient follow up at [facility]. I have also discussed that she needs to abstain from cocaine as well.She appears to be attending to basic needs. No access to firearms. No evidence of unstable mental illness as defined under the Rowe act. Main issue at this time seems to be substance use as well as social issues including homelessness. Appears to be malingering for correction. She may in fact act out in order to obtain her goal but inpatient psychiatric treatment will not ameliorate this risk and it would be counter therapeutic. Patient needs to address her substance abuse issues. She is encouraged to follow-up with Richard Feliciano. Ba is lifted. Orders Orders Diet Regular Basic (04/24/17 Dinner) Diet Regular Basic (04/25/17 Breakfast) Diet Regular Basic (04/25/17 Lunch) Results Vital Signs Date Time Temp Pulse Resp B/P (MAP) Pulse Ox O2 Delivery O2 Flow Rate FiO2 04/25/17 06:40 97.3 75 16 130/63 (85) 99 Room Air 04/24/17 18:05 84 18 106/53 (70) Room Air 04/24/17 11:00 97.3 86 20 129/81 (97) 100 Room Air Date/Time Source Procedure Growth Status 04/24/17 08:00 Urine Clean Catch Urine Culture Pending Worksheet Diagnosis Primary Impression: Cocaine abuse Additional Impressions: UTI (urinary tract infection) Substance induced mood disorder Psychiatrically Cleared: Yes Med/ Other Pt Specific Info: No Meds Exist/No RX given Prescriptions Sulfamethoxazole-Trimethoprim (Bactrim DS) 800-160 Mg Tab 1 TAB PO BID for Infection for 3 Days, #6 TAB 0 Refills Prov: Marly Velasquez BRO 04/24/17 Disposition: 01 DISCHARGE HOME Condition: Stable Problem Qualifiers Additional Impressions: UTI (urinary tract infection) Qualified Codes: N39.0 - Urinary tract infection, site not specified Thuy Frazier Apr 25, 2017 10:46
== END 2017-04-25 11:17 | disposition home or self-care (01) ==
LOC: NEPD 07:36 → NEPJ 04-25 11:17
DX: F14.14 Cocaine abuse with cocaine-induced mood disorder (principal); N39.0 Urinary tract infection, site not specified; F31.9 Bipolar disorder, unspecified; F17.210 Nicotine dependence, cigarettes, uncomplicated; Z59.0 Homelessness
CPT/HCPCS: 80053; 80307; 81001; 84443; 84703; 85025; 87086; 99283

== ENCOUNTER 2017-05-13 14:47 | Emergency (ER) | payer SELFPAY ==
[2017-05-13 14:54] VITALS: BP 132/77; PULSE 82; RESP 14; TEMP 99.3
[2017-05-13 15:34] LABS: BASOPHIL % 0.5 % (0.0-2.0); EOSINOPHIL # 0.2 TH/MM3 (0-0.4); HEMATOCRIT 34.2 % (35.0-46.0); HEMOGLOBIN 11.5 GM/DL (11.6-15.3); LYMPH % 18.8 % (9.0-44.0); LYMPHOCYTE # 1.5 TH/MM3 (1.0-4.8); MEAN CELL VOLUME 84.7 FL (80.0-100.0); MEAN CORPUSCULAR HEMOGLOBIN 28.4 PG (27.0-34.0); MEAN CORPUSCULAR HGB CONC 33.5 % (32.0-36.0); MONO % 3.5 % (0.0-8.0); MONOCYTE # 0.3 TH/MM3 (0-0.9); NEUT % 75.2 % (16.0-70.0); PLATELET COUNT 258 TH/MM3 (150-450); RED BLOOD COUNT 4.04 MIL/MM3 (4.00-5.30); RED CELL DISTRIBUTION WIDTH 14.5 % (11.6-17.2)
[2017-05-13 15:42] LABS: BICARBONATE 23.1 MEQ/L (21.0-32.0); CALCIUM 8.4 MG/DL (8.5-10.1); CREATININE 0.92 MG/DL (0.50-1.00)
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
[2017-05-13 16:23] VITALS: BP 117/65; PULSE 72; RESP 18; O2SAT 100
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
[2017-05-13 17:46] LABS: INTERNATIONAL NORMALIZED RATIO 1.1 RATIO; PROTHROMBIN TIME - PATIENT 10.8 SEC (9.8-11.6)
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
[2017-05-13] MEDS ORDERED: ROBA750T PO (19:40)
[2017-05-13] MEDS ORDERED: IBUP-232 PO (19:40)
[2017-05-13] MEDS ORDERED: POTASSIUM CHLORIDE 20 MEQ CONTROLLED RELEASE TAB PO ONE (19:45)
[2017-05-13 21:02] VITALS: BP 111/58; PULSE 90; RESP 20; O2SAT 100
== END 2017-05-14 01:18 | disposition home or self-care (01) ==
LOC: NEPE 14:47
DX: S02.2XXA Fracture of nasal bones, initial encounter for closed fracture (principal); S16.1XXA Strain of muscle, fascia and tendon at neck level, initial encounter; S05.12XA Contusion of eyeball and orbital tissues, left eye, initial encounter; S05.11XA Contusion of eyeball and orbital tissues, right eye, initial encounter; Y04.2XXA Assault by strike against or bumped into by another person, initial encounter
CPT/HCPCS: 70450; 70486; 71046; 72125; 80048; 84703; 85025; 85610; 85730

== ENCOUNTER 2017-07-21 17:38 | Inpatient (IN) | payer SELFPAY ==
[~2017-07-21] VITALS: Ht 167.6 cm; Wt 100.8 kg
[~2017-07-21 17:38] MED LIST changes: -BACT800T5 PO; +IBUP-232 PO; -METR250 PO; +ROBA750T PO
[2017-07-21] MEDS ORDERED: IOHEXOL 350 MG/ML 10 ML VIAL (for RAD DIAG) IVCONTRAST ONE (17:39)
[2017-07-21] MEDS ORDERED: SODIUM CHLOR 0.9% 1000 ML INJ 1,000 ML IV SCH (17:47)
--- NOTE | 2017-07-21 17:57 | PD ---
HPI Chief Complaint: Abdominal pain Time Seen by Provider: 17:46 Travel History International Travel<30 days: No Contact w/Intl Traveler<30days: No Traveled to known affect area: No History of Present Illness HPI This is a 32-year-old female who presents via EMS for evaluation of lower back and abdominal pain. Symptoms started this afternoon around 2 PM. She describes it as a sharp pain which is constant. She endorses associated nausea , vomiting, diarrhea and dysuria. Denies vaginal bleeding or discharge, cough or congestion, shortness of breath. She has been having chills and myalgias throughout the day. Temperature was 100.4 per EMS. She reports that yesterday she was experiencing fatigue. She has no other complaints at this time. [facility] Past Medical History Arthritis: No Asthma: No Autoimmune Disease: No Blood Disorders: No Bipolar Disorder: Yes Anxiety: Yes Depression: Yes Heart Rhythm Problems: No Chemotherapy: No Chest Pain: No Congestive Heart Failure: No COPD: No Cerebrovascular Accident: No Diminished Hearing: No Endocrine: Yes Gastrointestinal Disorders: No GERD: No Genitourinary: No Hiatal Hernia: No Immune Disorder: No Kidney Stones: No Musculoskeletal: No Neurologic: No Psychiatric: Yes (ADHD, Bipolar, Depression) Reproductive: No Respiratory: No Immunizations Current: No Migraines: No Radiation Therapy: No Renal Failure: No Sickle Cell Disease: No Sleep Apnea: No Thyroid Disease: No Ulcer: No : 6 Para: 4 Miscarriage: 2 Ovarian Cysts: Yes (LT SIDE) Dilation and Curettage (D&C): Yes Tubal Ligation: Yes Past Surgical History Abdominal Surgery: No AICD: No Arteriovenous Shunt: No Cardiac Surgery: No Section: Yes (06,08,11,13) Ear Surgery: No Endocrine Surgery: No Eye Surgery: No Genitourinary Surgery: No Gynecologic Surgery: Yes (4 C-SECTIONS) Insulin Pump: No Joint Replacement: No Oral Surgery: No Pacemaker: No Thoracic Surgery: No Tonsillectomy: Yes Other Surgery: Yes Social History Alcohol Use: Yes (social) Tobacco Use: Yes Substance Use: Yes ([place] Abuse per pt. ) Allergies-Medications (Allergen,Severity, Reaction): Coded Allergies: azithromycin (Unverified Allergy, Severe, 07/21/17) levofloxacin (Unverified Allergy, Severe, 07/21/17) penicillin G (Unverified Allergy, Severe, Hives, 5/6/18) ceftriaxone (Unverified Allergy, Intermediate, 07/21/17) codeine (Unverified Allergy, Unknown, 07/21/17) morphine (Unverified Allergy, Unknown, 07/21/17) Reported Meds & Prescriptions Reported Meds & Active Scripts Active No Active Prescriptions or Reported Medications Review of Systems Except as stated in HPI: all other systems reviewed are Neg Physical Exam Narrative GENERAL: Well-developed well-nourished female no acute distress SKIN: Warm and dry. HEAD: Atraumatic. Normocephalic. EYES: Pupils equal and round. No scleral icterus. No injection or drainage. ENT: No nasal bleeding or discharge. Mucous membranes pink and moist. NECK: Trachea midline. No JVD. CARDIOVASCULAR: Regular rate and rhythm. No murmur appreciated. RESPIRATORY: No accessory muscle use. Clear to auscultation. Breath sounds equal bilaterally. GASTROINTESTINAL: Abdomen soft, some tenderness to palpation in the suprapubic region without guarding. MUSCULOSKELETAL: No obvious deformities. No clubbing. No cyanosis. No edema. There is no CVA tenderness but there is tenderness palpation of the lower back paravertebral musculature. NEUROLOGICAL: Awake and alert. No obvious cranial nerve deficits. Motor grossly within normal limits. Normal speech. Data Data Last Documented VS Vital Signs Date Time Temp Pulse Resp B/P (MAP) Pulse Ox O2 Delivery O2 Flow Rate FiO2 07/21/17 19:30 99 16 114/57 (76) 100 Room Air 07/21/17 18:09 100.2 Orders Orders Sepsis Workup Initiated (07/21/17 ) Complete Blood Count With Diff (07/21/17 17:47) Comprehensive Metabolic Panel (07/21/17 17:47) Lactic Acid Sepsis Protocol (07/21/17 17:47) Urinalysis - C+S If Indicated (07/21/17 17:47) Blood Culture (07/21/17 17:47) Blood Glucose (07/21/17 17:47) Ecg Monitoring (07/21/17 17:47) Iv Access Insert/Monitor (07/21/17 17:47) Oximetry (07/21/17 17:47) Oxygen Administration (07/21/17 17:47) Ed Urine Pregnancytest Poc (07/21/17 17:47) Lipase (07/21/17 17:47) Ondansetron Inj (Zofran Inj) (07/21/17 18:00) Sodium Chlor 0.9% 1000 Ml Inj (Ns 1000 M (07/21/17 17:47) Drug Screen, Random Urine (07/21/17 18:06) Ct Abd/Pel W Iv Contrast(Rout) (07/21/17 18:07) Ketorolac Inj (Toradol Inj) (07/21/17 18:15) Creatine Kinase (Cpk) (07/21/17 18:00) Urinalysis - C+S If Indicated (07/21/17 18:30) Gc And Chlamydia Pcr (07/21/17 18:31) Wet Prep Profile (07/21/17 18:31) Iohexol 350 Inj (Omnipaque 350 Inj) (07/21/17 17:39) Clindamycin 900 Mg/Ns Premix (Cleocin 90 (07/21/17 19:30) Gentamicin Inj (Gentamicin Inj) (07/21/17 19:30) Admit Order (Ed Use Only) (07/21/17 19:43) Labs Laboratory Tests Test 07/21/17 17:55 07/21/17 18:00 07/21/17 19:30 Urine Color YELLOW YELLOW Urine Turbidity CLEAR CLEAR Urine pH 5.5 5.5 Urine Specific Jerome 1.028 GREATER THAN 1.050 Urine Protein NEG mg/dL TRACE mg/dL Urine Glucose (UA) NEG mg/dL NEG mg/dL Urine Ketones NEG mg/dL NEG mg/dL Urine Occult Blood SMALL MOD Urine Nitrite NEG NEG Urine Bilirubin NEG NEG Urine Urobilinogen 2.0 MG/DL 2.0 MG/DL Urine Leukocyte Esterase NEG NEG Urine RBC LESS THAN 1 /hpf 2 /hpf Urine WBC 2 /hpf 1 /hpf Urine Squamous Epithelial Cells 1 /hpf 2 /hpf Urine Mucus FEW /lpf FEW /lpf Microscopic Urinalysis Comment CATH-CULT NOT IND CULT NOT INDICATED Urine Opiates Screen NEG Urine Barbiturates Screen NEG Urine Amphetamines Screen NEG Urine Benzodiazepines Screen NEG Urine Cocaine Screen POS Urine Cannabinoids Screen NEG White Blood Count 8.0 TH/MM3 Red Blood Count 4.30 MIL/MM3 Hemoglobin 12.3 GM/DL Hematocrit 36.8 % Mean Corpuscular Volume 85.6 FL Mean Corpuscular Hemoglobin 28.6 PG Mean Corpuscular Hemoglobin Concent 33.4 % Red Cell Distribution Width 14.7 % Platelet Count 217 TH/MM3 Mean Platelet Volume 9.1 FL Neutrophils (%) (Auto) 88.1 % Lymphocytes (%) (Auto) 7.2 % Monocytes (%) (Auto) 4.0 % Eosinophils (%) (Auto) 0.4 % Basophils (%) (Auto) 0.3 % Neutrophils # (Auto) 7.1 TH/MM3 Lymphocytes # (Auto) 0.6 TH/MM3 Monocytes # (Auto) 0.3 TH/MM3 Eosinophils # (Auto) 0.0 TH/MM3 Basophils # (Auto) 0.0 TH/MM3 CBC Comment DIFF FINAL Differential Comment Blood Urea Nitrogen 11 MG/DL Creatinine 1.03 MG/DL Random Glucose 71 MG/DL Total Protein 7.5 GM/DL Albumin 3.1 GM/DL Calcium Level 8.1 MG/DL Alkaline Phosphatase 65 U/L Aspartate Amino Transf (AST/SGOT) 10 U/L Alanine Aminotransferase (ALT/SGPT) 15 U/L Total Bilirubin 0.2 MG/DL Sodium Level 135 MEQ/L Potassium Level 3.8 MEQ/L Chloride Level 103 MEQ/L Carbon Dioxide Level 24.5 MEQ/L Anion Gap 8 MEQ/L Estimat Glomerular Filtration Rate 76 ML/MIN Lactic Acid Level 2.2 mmol/L Total Creatine Kinase 112 U/L Lipase 160 U/L Clue Cells (Wet Prep) NONE SEEN Vaginal Trichomonas (Wet Prep) NONE SEEN Vaginal Yeast (Wet Prep) NONE SEEN MDM Medical Decision Making Medical Screen Exam Complete: Yes Emergency Medical Condition: Yes Medical Record Reviewed: Yes Differential Diagnosis Pyelonephritis, colitis, ureteral stone, pelvic inflammatory disease, tubo- ovarian abscess Narrative Course Patient was placed on ECG ECG monitoring pulse oximetry. IV fluids, Zofran has been ordered. Lab work, blood cultures, urinalysis, CT abdomen pelvis ordered. CBC reveals WBC count of 8 with 88.1% neutrophils. CMP is unremarkable. Lactic acid is elevated at 2.2. Initial urinalysis reveals small blood however given her symptoms there was concern that the urine sample may be incorrect and therefore a repeat sample was sent for clarification. Drug screen is positive for cocaine which is consistent with her history of crack cocaine use. CT abdomen and pelvis reveals CONCLUSION: 1. Mild hepatosplenomegaly. 2. Minimal free fluid within the cul-de-sac. Per chart review it appears that the patient was seen here in April and diagnosed with bacterial vaginosis. Her test results eventually came back positive for gonorrhea. According to nursing notes there is an attempt at that time to contact the patient at home to tell her the results and to treat her however this appeared to be unsuccessful. She is sexually active with 2 partners. Pelvic examination reveals thick white vaginal discharge, cervical motion tenderness, bilateral adnexal tenderness. The patient is unfortunately allergic to azithromycin, Rocephin, Levaquin and penicillin-she reports hives. Her examination and history are consistent with pelvic inflammatory disease. According to up-to-date the ideal treatment in this situation with severe penicillin allergy and concern for gonorrhea would be to admit the patient and treat with clindamycin 900 mg, gentamicin 2 mg/kg loading dose. Therefore clindamycin and gentamicin have been ordered. The patient does meet SIRS criteria as well. She will be admitted. I discussed with the on-call OB hospitalist Dr. Soliman who is agreeable with admission. Sepsis Criteria SIRS Criteria (2 or more): Temp > 100.9 or < 96.8, Heart rate over 90 Sepsis Criteria (SIRS+source): Infect source susp/known Severe Sepsis (+one): Lactate >2 Diagnosis Primary Impression: Pelvic inflammatory disease Additional Impression: Sepsis Admitting Information Admitting Physician Requests: Admit Scripts No Active Prescriptions or Reported Meds Norman Scherer July 21, 2017 17:57
[2017-07-21] MEDS ORDERED: ONDANSETRON HCL 4 MG/2 ML VIAL IVP ONE (18:00)
[2017-07-21 18:04] LABS: BILIRUBIN, URINE NEG (NEG); BLOOD, URINE SMALL (NEG); GLUCOSE,URINE NEG (NEG); KETONE, URINE NEG (NEG); MUCUS URINE FEW /lpf (OCC); NITRITE,URINE NEG (NEG); PH, URINE 5.5 (5.0-8.5); SQUAMOUS EPITHELIAL CELL URINE 1 /hpf (0-5); URINE COLOR YELLOW (YELLW/STRAW); URINE LEUKOCYTE ESTERASE NEG (NEG)
[2017-07-21 18:09] VITALS: BP 132/59; PULSE 107; RESP 18; TEMP 100.2; O2SAT 99
[2017-07-21 18:11] VITALS: O2SAT 99
[2017-07-21] MEDS ORDERED: KETOROLAC TROMETHAMINE 30 MG/ML (IVP) VIAL IV PUSH ONE (18:15)
[2017-07-21 18:25] LABS: AUTOMATED NEUTROPHIL # 7.1 TH/MM3 (1.8-7.7); BASOPHIL % 0.3 % (0.0-2.0); EOSINOPHIL % 0.4 % (0.0-4.0); HEMATOCRIT 36.8 % (35.0-46.0); HEMOGLOBIN 12.3 GM/DL (11.6-15.3); LYMPH % 7.2 % (9.0-44.0); LYMPHOCYTE # 0.6 TH/MM3 (1.0-4.8); MEAN CELL VOLUME 85.6 FL (80.0-100.0); MEAN CORPUSCULAR HEMOGLOBIN 28.6 PG (27.0-34.0); MEAN CORPUSCULAR HGB CONC 33.4 % (32.0-36.0); MEAN PLATELET VOLUME 9.1 FL (7.0-11.0); MONOCYTE # 0.3 TH/MM3 (0-0.9); NEUT % 88.1 % (16.0-70.0); PLATELET COUNT 217 TH/MM3 (150-450); RED CELL DISTRIBUTION WIDTH 14.7 % (11.6-17.2)
[2017-07-21 18:40] LABS: ALBUMIN 3.1 GM/DL (3.4-5.0); AST (GOT) 10 U/L (15-37); BICARBONATE 24.5 MEQ/L (21.0-32.0); BLOOD UREA NITROGEN 11 MG/DL (7-18); CALCIUM 8.1 MG/DL (8.5-10.1); CHLORIDE 103 MEQ/L (98-107); CREATININE 1.03 MG/DL (0.50-1.00); GLOMERULAR FILTRATION RATE 76 ML/MIN (>89); GLUCOSE,RANDOM 71 MG/DL (74-106); SODIUM (NA) 135 MEQ/L (136-145)
[2017-07-21 18:41] LABS: ALT (GPT) 15 U/L (10-53)
[2017-07-21 18:44] LABS: ALKALINE PHOSPHATASE 65 U/L (45-117); TOTAL BILIRUBIN ADULT 0.2 MG/DL (0.2-1.0); TOTAL PROTEIN 7.5 GM/DL (6.4-8.2)
[2017-07-21 19:04] LABS: LACTIC ACID SEPSIS PROTOCOL 2.2 mmol/L (0.4-2.0)
--- NOTE | 2017-07-21 19:20 | RADRPT ---
EXAM DATE/TIME: 07/21/2017 19:05 [facility] COMPARISON: No previous studies available for comparison. INDICATIONS : Bilateral flank and lower abdomen pain. IV CONTRAST: 96 cc Omnipaque 350 (iohexol) IV ORAL CONTRAST: No oral contrast ingested. RADIATION DOSE: 13.10 CTDIvol (mGy) MEDICAL HISTORY : Ovarian cyst SURGICAL HISTORY : section. ENCOUNTER: Initial ACUITY: 1 day PAIN SCALE: 8/10 LOCATION: Bilateral flank lower abdomen TECHNIQUE: Volumetric scanning of the abdomen and pelvis was performed. Using automated exposure control and ad justment of the mA and/or kV according to patient size, radiation dose was kept as low as reasonably achievable to obtain optimal diagnostic quality images. DICOM format image data is available electro nically for review and comparison. FINDINGS: LOWER LUNGS: The visualized lower lungs are clear. LIVER: Mild hepatomegaly is noted. Homogeneous density without lesion. There is no dilation of the biliary tree. No calcified gallstones. SPLEEN: Mild splenomegaly is noted. PANCREAS: Within normal limits. KIDNEYS: Normal in size and shape. There is no mass, stone or hydronephrosis. ADRENAL GLANDS: Within normal limits. VASCULAR: There is no aortic aneurysm. BOWEL/MESENTERY: The stomach, small bowel, and colon demonstrate no acute abnormality. There is no free intraperitone al air or fluid. The appendix is normal. ABDOMINAL WALL: Within normal limits. RETROPERITONEUM: There is no lymphadenopathy. BLADDER: No wall thickening or mass. REPRODUCTIVE: Within normal limits. Minimal free fluid is noted within the cul-de-sac there INGUINAL: There is no lymphadenopathy or hernia. MUSCULOSKELETAL: Within normal limits for patient age. CONCLUSION: 1. Mild hepatosplenomegaly. 2. Minimal free fluid within the cul-de-sac. Ugo Marquis MD on July 21, 2017 at 19:14 Board Certified Radiologist. This report was verified electronically.
[2017-07-21 19:30] VITALS: BP 114/57; O2SAT 100
[2017-07-21] MEDS ORDERED: CLINDAMYCIN 900 MG/NS PREMIX 50 ML IV ONE (19:30)
[2017-07-21] MEDS ORDERED: GENTAMICIN INJ 200 MG in SODIUM CHLORIDE 0.9% INJ 100 ML IV ONE (19:30)
[2017-07-21 19:51] LABS: BILIRUBIN, URINE NEG (NEG); BLOOD, URINE MOD (NEG); GLUCOSE,URINE NEG (NEG); KETONE, URINE NEG (NEG); MUCUS URINE FEW /lpf (OCC); NITRITE,URINE NEG (NEG); PH, URINE 5.5 (5.0-8.5); SQUAMOUS EPITHELIAL CELL URINE 2 /hpf (0-5); URINE COLOR YELLOW (YELLW/STRAW); URINE LEUKOCYTE ESTERASE NEG (NEG)
[2017-07-21 20:00] VITALS: BP 129/84; PULSE 104; RESP 18; TEMP 99.8; O2SAT 100
[2017-07-21] MEDS ORDERED: ONDANSETRON HCL 4 MG/2 ML VIAL IV PUSH PRN (20:45)
[2017-07-21] MEDS ORDERED: IBUPROFEN 600 MG TAB PO PRN (20:45)
[2017-07-21] MEDS ORDERED: SODIUM CHLORIDE 0.9% FLUSH 10 ML FLUSH IV FLUSH PRN (20:45)
[2017-07-21] MEDS ORDERED: ACETAMINOPHEN 325 MG TAB PO PRN (20:45)
--- NOTE | 2017-07-21 20:49 | HHI.HP ---
HPI Chief Complaint Abdominal and back pain for several days, nausea and vomiting, night sweats chills Date Seen: July 21, 2017 Time Seen: 20:30 Travel History International Travel<30 Days: No Contact w/Intl Traveler<30Days: No Known Affected Area: No History of Present Illness HPI Patient is 32-year-old white female previous 4 who presents by ambulance to the emergency room for evaluation of abdominal pain and back pains worsening over the last 2 days, she has had low-grade fever 98-100.2 at home, also night sweats and chills nausea and vomiting noted today. In April the patient was here and was diagnosed with bacterial vaginosis and her cultures done at that time in the emergency room and I came back later positive for gonorrhea but the patient was not able to be contacted to take medication to treat that problem Para: 4 : 4 History Obstetric History Obstetric History 4 C-sections Past Surgical History Narrative Surgical 4 C-sections Social History Narrative Social History 2 sexual partners at least , cocaine screen positive Alcohol Use: Yes Tobacco Use: Yes Substance Abuse: Yes Allergies-Medications (Allergen,Severity, Reaction): Coded Allergies: azithromycin (Unverified Allergy, Severe, 07/21/17) levofloxacin (Unverified Allergy, Severe, 07/21/17) penicillin G (Unverified Allergy, Severe, Hives, 07/21/17) ceftriaxone (Unverified Allergy, Intermediate, 07/21/17) codeine (Unverified Allergy, Unknown, 07/21/17) morphine (Unverified Allergy, Unknown, 07/21/17) Home Meds Discontinued Scripts Methocarbamol (Robaxin) 750 Mg Tab, 750 MG PO TID Y for MUSCLE SPASM, #21 TAB 0 Refills Prov:Ellyn Jon 05/13/17 Ibuprofen (Ibuprofen) 600 Mg Tab, 600 MG PO TID Y for PAIN SCALE 1 TO 10, #21 TAB 0 Refills Prov:Ellyn Jon 05/13/17 Review of Systems General / Constitutional: No: Fever, Weight Gain, Chills, Other Eyes: No: Diploplia, Blurred Vision, Visual changes, Pain, Photophobia HENT: No: Headaches, Vertigo, Lightheadedness Cardiovascular: No: Irregular Rhythm, Chest Pain or Discomfort, Palpitations, Tachycardia, Syncope, Varicosities, Edema, Cyanosis Respiratory: Cough, Short of Breath, No: Wheezing, Other Gastrointestinal: Nausea, Vomiting, Abdominal Pain, No: Diarrhea Genitourinary: No: Decreased Urinary Output, Oliguria Musculoskeletal: No: Limited ROM, Weakness, Cramping, Edema, Pain Skin: No Rash, No Itching, No Dryness, No Lumps, No Change in Pigmentation, No Change in Nails, No Alopecia, No Lesions Neurologic: No: Weakness, Dizziness, Syncope, Focal Abnormalities, Coordination Problem, Headache, Slurred Speech, Seizures Psychiatric: No: Depression, Suicidal Ideations, Homicidal Ideation Endocrine: No: Heat Intolerance, Cold Intolerance, Polydipsia, Polyuria, Other Physical Exam Vital Signs Date Time Temp Pulse Resp B/P (MAP) Pulse Ox O2 Delivery O2 Flow Rate FiO2 07/21/17 19:30 99 16 114/57 (76) 100 Room Air 07/21/17 18:11 98 Room Air 07/21/17 18:11 99 07/21/17 18:09 100.2 107 18 132/59 (83) 99 Narrative GENERAL: Well-nourished, well-developed patient. SKIN: Warm and dry. HEAD: Normocephalic and atraumatic. EYES: No scleral icterus. No injection or drainage. ENT: No nasal drainage noted. Mucous membranes pink. Airway patent. NECK: Supple, trachea midline. No JVD. CARDIOVASCULAR: Regular rate and rhythm without murmurs, gallops, or rubs. RESPIRATORY: Breath sounds equal bilaterally. No accessory muscle use. BREASTS: Bilateral exam showed no masses , no retractions, no nipple discharge. ABDOMEN/GI: Abdomen soft, 2-3 +tender in lower quads L>R , bowel sounds present , no rebound, no guarding GENITOURINARY: External Genitalia: intact and normal in appearance Cervix: + CMT Uterus slightly enlarged approximately 11-12 weeks size [ test was negative in the emergency room] anteflexed 2+ tender, too tender to palpate the adnexal release there was pain but no rebound tenderness EXTREMITIES: No cyanosis or edema. BACK: Nontender without obvious deformity. No CVA tenderness. NEUROLOGICAL: Awake and alert. Motor and sensory grossly within normal limits. Five out of 5 muscle strength in all muscle groups. Normal speech. Caprini VTE Risk Assessment Caprini VTE Risk Assessment: No/Low Risk (score <= 1) Caprini Risk Assessment Model Point Value = 1 Point Value = 2 Point Value = 3 Point Value = 5 Age 41-60 Minor surgery BMI > 25 kg/m2 Swollen legs Varicose veins or History of unexplained or recurrent spontaneous Oral contraceptives or hormone replacement Sepsis (< 1 month) Serious lung disease, including pneumonia (< 1 month) Abnormal pulmonary function Acute myocardial infarction Congestive heart failure (< 1 month) History of inflammatory bowel disease Medical patient at bed rest Age 61-74 Arthroscopic surgery Major open surgery (> 45 min) Laparoscopic surgery (> 45 min) Malignancy Confined to bed (> 72 hours) Immobilizing plaster cast Central venous access Age >= 75 History of VTE Family history of VTE Factor V Leiden Prothrombin [id number] Lupus anticoagulant Anticardiolipin antibodies Elevated serum homocysteine Heparin-induced thrombocytopenia Other congenital or acquired thrombophilia Stroke (< 1 month) Elective arthroplasty Hip, pelvis, or leg fracture Acute spinal cord injury (< 1 month) Prophylaxis Regimen Total Risk Factor Score Risk Level Prophylaxis Regimen 0-1 Low Early ambulation 2 Moderate Order ONE of the following: *Sequential Compression Device (SCD) *Heparin 5000 units SQ BID 3-4 Higher Order ONE of the following medications: *Heparin 5000 units SQ TID *Enoxaparin/Lovenox 40 mg SQ daily (WT < 150 kg, CrCl > 30 mL/min) *Enoxaparin/Lovenox 30 mg SQ daily (WT < 150 kg, CrCl > 10-29 mL/min) *Enoxaparin/Lovenox 30 mg SQ BID (WT < 150 kg, CrCl > 30 mL/min) AND/OR *Sequential Compression Device (SCD) 5 or more Highest Order ONE of the following medications: *Heparin 5000 units SQ TID (Preferred with Epidurals) *Enoxaparin/Lovenox 40 mg SQ daily (WT < 150 kg, CrCl > 30 mL/min) *Enoxaparin/Lovenox 30 mg SQ daily (WT < 150 kg, CrCl > 10-29 mL/min) *Enoxaparin/Lovenox 30 mg SQ BID (WT < 150 kg, CrCl > 30 mL/min) AND *Sequential Compression Device (SCD) Data Data Orders Orders Sepsis Workup Initiated (07/21/17 ) Complete Blood Count With Diff (07/21/17 17:47) Comprehensive Metabolic Panel (07/21/17 17:47) Lactic Acid Sepsis Protocol (07/21/17 17:47) Urinalysis - C+S If Indicated (07/21/17 17:47) Blood Culture (07/21/17 17:47) Blood Glucose (07/21/17 17:47) Ecg Monitoring (07/21/17 17:47) Iv Access Insert/Monitor (07/21/17 17:47) Oximetry (07/21/17 17:47) Oxygen Administration (07/21/17 17:47) Ed Urine Pregnancytest Poc (07/21/17 17:47) Lipase (07/21/17 17:47) Ondansetron Inj (Zofran Inj) (07/21/17 18:00) Sodium Chlor 0.9% 1000 Ml Inj (Ns 1000 M (07/21/17 17:47) Drug Screen, Random Urine (07/21/17 18:06) Ct Abd/Pel W Iv Contrast(Rout) (07/21/17 18:07) Ketorolac Inj (Toradol Inj) (07/21/17 18:15) Creatine Kinase (Cpk) (07/21/17 18:00) Urinalysis - C+S If Indicated (07/21/17 18:30) Gc And Chlamydia Pcr (07/21/17 18:31) Wet Prep Profile (07/21/17 18:31) Iohexol 350 Inj (Omnipaque 350 Inj) (07/21/17 17:39) Clindamycin 900 Mg/Ns Premix (Cleocin 90 (07/21/17 19:30) Gentamicin Inj (Gentamicin Inj) (07/21/17 19:30) Admit Order (Ed Use Only) (07/21/17 19:43) Labs Laboratory Tests Test 07/21/17 17:55 07/21/17 18:00 07/21/17 19:30 Urine Color YELLOW YELLOW Urine Turbidity CLEAR CLEAR Urine pH 5.5 5.5 Urine Specific [place] 1.028 GREATER THAN 1.050 Urine Protein NEG TRACE Urine Glucose (UA) NEG NEG Urine Ketones NEG NEG Urine Occult Blood SMALL MOD Urine Nitrite NEG NEG Urine Bilirubin NEG NEG Urine Urobilinogen 2.0 2.0 Urine Leukocyte Esterase NEG NEG Urine RBC LESS THAN 1 2 Urine WBC 2 1 Urine Squamous Epithelial Cells 1 2 Urine Mucus FEW FEW Microscopic Urinalysis Comment CATH-CULT NOT IND CULT NOT INDICATED Urine Opiates Screen NEG Urine Barbiturates Screen NEG Urine Amphetamines Screen NEG Urine Benzodiazepines Screen NEG Urine Cocaine Screen POS Urine Cannabinoids Screen NEG White Blood Count 8.0 Red Blood Count 4.30 Hemoglobin 12.3 Hematocrit 36.8 Mean Corpuscular Volume 85.6 Mean Corpuscular Hemoglobin 28.6 Mean Corpuscular Hemoglobin Concent 33.4 Red Cell Distribution Width 14.7 Platelet Count 217 Mean Platelet Volume 9.1 Neutrophils (%) (Auto) 88.1 Lymphocytes (%) (Auto) 7.2 Monocytes (%) (Auto) 4.0 Eosinophils (%) (Auto) 0.4 Basophils (%) (Auto) 0.3 Neutrophils # (Auto) 7.1 Lymphocytes # (Auto) 0.6 Monocytes # (Auto) 0.3 Eosinophils # (Auto) 0.0 Basophils # (Auto) 0.0 CBC Comment DIFF FINAL Differential Comment Blood Urea Nitrogen 11 Creatinine 1.03 Random Glucose 71 Total Protein 7.5 Albumin 3.1 Calcium Level 8.1 Alkaline Phosphatase 65 Aspartate Amino Transf (AST/SGOT) 10 Alanine Aminotransferase (ALT/SGPT) 15 Total Bilirubin 0.2 Sodium Level 135 Potassium Level 3.8 Chloride Level 103 Carbon Dioxide Level 24.5 Anion Gap 8 Estimat Glomerular Filtration Rate 76 Lactic Acid Level 2.2 Total Creatine Kinase 112 Lipase 160 Clue Cells (Wet Prep) NONE SEEN Vaginal Trichomonas (Wet Prep) NONE SEEN Vaginal Yeast (Wet Prep) NONE SEEN Date/Time Source Procedure Growth Status 07/21/17 18:00 Blood Peripheral Aerobic Blood Culture Pending Received 07/21/17 18:00 Blood Peripheral Anaerobic Blood Culture Pending Received Assessment/Plan Assessment and Plan Assessment--acute salpingitis/PID in a patient that has documented gonorrhea 3 months ago that was untreated Nausea and vomiting Positive cocaine screen and multiple sexual partners Plan-IV gentamicin and clindamycin until afebrile greater than 24 hours and pain -free Cristo Soliman II, MD July 21, 2017 20:49
[2017-07-21] MEDS ORDERED: KETOROLAC TROMETHAMINE 30 MG/ML (IVP) VIAL IV PUSH PRN (21:00)
[2017-07-21] MEDS: SODIUM CHLORIDE 0.9% FLUSH 10 ML FLUSH IV FLUSH SCH (21:00)
[2017-07-21] MEDS: SODIUM CHLOR 0.45% 1000 ML INJ 1,000 ML IV SCH (21:01)
--- NOTE | 2017-07-21 22:24 | RADRPT ---
EXAM DATE/TIME: 07/21/2017 21:24 [facility] COMPARISON: CT ABDOMEN & PELVIS W CONTRAST, July 21, 2017, 19:05. INDICATIONS : low back pain. MEDICAL HISTORY : Ovarian cysts. SURGICAL HISTORY : section. ENCOUNTER: Initial ACUITY: 1 day PAIN SCORE: 5/10 LOCATION: Bilateral pelvis MEASUREMENTS: UTERUS: 8.8 x 6.3 x 4.9 cm ENDOMETRIAL STRIPE: 5 mm RIGHT OVARY: Not visualized. LEFT OVARY: 3.4 x 2.8 x 2.6 cm FINDINGS: UTERUS: The myometrium has homogeneous echotexture without mass. RIGHT OVARY: Nonvisualized. LEFT OVARY: Ovary contains no mass or significant cystic lesion. MISCELLANEOUS: Small amount of free fluid is noted within the cul-de-sac. CONCLUSION: Small amount of free fluid within the cul-de-sac. Unremarkable uterus and left ovary. Nonvisualization of the right ovary. Ugo Marquis MD on July 21, 2017 at 22:18 Board Certified Radiologist. This report was verified electronically.
[2017-07-21] MEDS ORDERED: GENTAMICIN INJ 500 MG in SODIUM CHLORIDE 0.9% INJ 100 ML IV SCH (22:45)
[2017-07-21] MEDS ORDERED: CLINDAMYCIN INJ 900 MG in SODIUM CHLORIDE 0.9% INJ 100 ML IV SCH (23:00)
[2017-07-22] VITALS: BP 123/62; PULSE 105; RESP 17; TEMP 102.4; O2SAT 97
[2017-07-22] MEDS: ACETAMINOPHEN/HYDROcodone 325 MG/5 MG TAB PO PRN ×4 (01:05→22:09)
[2017-07-22 04:00] VITALS: BP 107/59; PULSE 79; RESP 17; TEMP 97.1; O2SAT 99
[2017-07-22] MEDS: CLINDAMYCIN INJ 900 MG in SODIUM CHLORIDE 0.9% INJ 100 ML IV SCH ×2 (04:41→12:17)
[2017-07-22] MEDS: SODIUM CHLOR 0.45% 1000 ML INJ 1,000 ML IV SCH ×2 (06:05→17:22)
[2017-07-22 07:50] LABS: AUTOMATED NEUTROPHIL # 4.3 TH/MM3 (1.8-7.7); BASOPHIL % 0.4 % (0.0-2.0); EOSINOPHIL % 0.2 % (0.0-4.0); HEMATOCRIT 35.7 % (35.0-46.0); HEMOGLOBIN 11.8 GM/DL (11.6-15.3); LYMPH % 16.1 % (9.0-44.0); LYMPHOCYTE # 0.9 TH/MM3 (1.0-4.8); MEAN CELL VOLUME 85.7 FL (80.0-100.0); MEAN CORPUSCULAR HEMOGLOBIN 28.4 PG (27.0-34.0); MEAN CORPUSCULAR HGB CONC 33.1 % (32.0-36.0); MEAN PLATELET VOLUME 9.3 FL (7.0-11.0); MONO % 4.5 % (0.0-8.0); MONOCYTE # 0.2 TH/MM3 (0-0.9); NEUT % 78.8 % (16.0-70.0); PLATELET COUNT 217 TH/MM3 (150-450); RED BLOOD COUNT 4.16 MIL/MM3 (4.00-5.30); RED CELL DISTRIBUTION WIDTH 14.3 % (11.6-17.2); WHITE BLOOD COUNT 5.5 TH/MM3 (4.0-11.0)
[2017-07-22 08:00] VITALS: BP 116/59; PULSE 86; RESP 18; TEMP 97.1; O2SAT 100
[2017-07-22] MEDS: SODIUM CHLORIDE 0.9% FLUSH 10 ML FLUSH IV FLUSH SCH ×2 (09:00→22:10)
--- NOTE | 2017-07-22 10:01 | HHI.PR ---
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 Patient reports overall she feels about the same since admission. Reports her pain has been controlled with her current pain regimen, reporting about a 4/10 after taking oral analgesics. Denies any recurrence of fevers since admission. She does endorse chills. Denies abnormal vaginal discharge or bleeding. Tolerating diet without nausea or vomiting. GENERAL: Well-nourished, well-developed patient. NAD. Lying comfortably in bed. SKIN: Warm and dry. NEUROLOGICAL: Awake and alert. Motor and sensory grossly within normal limits. Normal speech. HEAD: Normocephalic and atraumatic. EYES: No scleral icterus. No injection or drainage. ENT: No nasal drainage noted. Mucous membranes pink. Airway patent. NECK: Supple, trachea midline. No JVD. CARDIOVASCULAR: Regular rate and rhythm without murmurs, gallops, or rubs. RESPIRATORY: Breath sounds equal and clear bilaterally. No accessory muscle use. ABDOMEN/GI: Abdomen soft, 2-3 + tenderness in lower quadrants remain L>R , bowel sounds present, no rebound, no guarding EXTREMITIES: No cyanosis or edema. BACK: Nontender without obvious deformity. No CVA tenderness. A/P: 32 year old female being treated for acute salpingitis/PID after found to have tested positive for gonorrhea in April of this year that was untreated. - Continue IV gentamicin 300 mg IV q24h and clindamycin 900 mg IV q8h - [place] 5/325 mg q4h prn pain - Continue Zofran prn N/V - Anticipate discharge on PO antibiotics once afebrile 24 hours and pain is well controlled Neftaly Blackwell MD R2 July 22, 2017 10:01
[2017-07-22 12:00] VITALS: BP 98/46; PULSE 84; RESP 20; TEMP 98; O2SAT 100
[2017-07-22] MEDS ORDERED: GENTAMICIN INJ 300 MG in SODIUM CHLORIDE 0.9% INJ 100 ML IV SCH (15:00)
[2017-07-22 16:00] VITALS: BP 105/57; PULSE 94; RESP 18; TEMP 98.6; O2SAT 99
[2017-07-22 20:00] VITALS: BP 97/46; PULSE 82; RESP 20; TEMP 98.5; O2SAT 100
[2017-07-22] MEDS: DOCUSATE SODIUM 100 MG CAP PO SCH (22:09)
[2017-07-22] MEDS: CLINDAMYCIN 900 MG/NS PREMIX 50 ML IV SCH (22:09)
[2017-07-23] VITALS: BP 106/52; PULSE 80; RESP 20; TEMP 98.7; O2SAT 100
[2017-07-23] MEDS: SODIUM CHLOR 0.45% 1000 ML INJ 1,000 ML IV SCH ×2 (03:00→09:39)
[2017-07-23 08:00] VITALS: BP 94/50; PULSE 84; RESP 17; TEMP 98.1; O2SAT 99
[2017-07-23] MEDS: SODIUM CHLORIDE 0.9% FLUSH 10 ML FLUSH IV FLUSH SCH (09:00)
--- NOTE | 2017-07-23 09:15 | HHI.PR ---
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 Patient states her pain is about the same as prior examination, improved with her current PO analgesic regimen. She denies any worsening pain or change in character. She denies fevers. Denies abnormal vaginal discharge or bleeding. Tolerating diet without vomiting, endorsing some nausea. GENERAL: Well-nourished, well-developed patient. NAD. Lying comfortably in bed. SKIN: Warm and dry. NEUROLOGICAL: Awake and alert. Motor and sensory grossly within normal limits. Normal speech. HEAD: Normocephalic and atraumatic. EYES: No scleral icterus. No injection or drainage. ENT: No nasal drainage noted. Mucous membranes pink. Airway patent. NECK: Supple, trachea midline. No JVD. CARDIOVASCULAR: Regular rate and rhythm without murmurs, gallops, or rubs. RESPIRATORY: Breath sounds equal and clear bilaterally. No accessory muscle use. ABDOMEN/GI: Abdomen soft, 2-3 + tenderness in lower quadrants remain L>R , bowel sounds present, no rebound, no guarding EXTREMITIES: No cyanosis or edema. BACK: Nontender without obvious deformity. No CVA tenderness. A/P: 32 year old female being treated for acute salpingitis/gonorrheal PID after found to have tested positive for gonorrhea in April of this year that was untreated. - Continue IV gentamicin 300 mg IV q24h and clindamycin 900 mg IV q8h - [place] 5/325 mg q4h prn pain - Continue Zofran prn N/V - Patient has remained afebrile with subjective improvement in pain for the past 32 hours - Anticipate discharge on PO antibiotics today - Will discharge with additional 10 days of doxycycline 100 mg po bid Neftaly Blackwell MD R2 July 23, 2017 09:15
[2017-07-23] MEDS: CLINDAMYCIN 900 MG/NS PREMIX 50 ML IV SCH (09:39)
[2017-07-23] MEDS: ACETAMINOPHEN/HYDROcodone 325 MG/5 MG TAB PO PRN (09:39)
[2017-07-23] MEDS: DOCUSATE SODIUM 100 MG CAP PO SCH (09:39)
[2017-07-23] MEDS ORDERED: TRAM50TA PO (10:59)
[2017-07-23] MEDS ORDERED: IBUP-232 PO (10:59)
[2017-07-23] MEDS ORDERED: DOCU1CAP39 PO (10:59)
--- NOTE | 2017-07-23 11:00 | HHI.DCPOC ---
Discharge Care Plan Diagnosis: (1) Pelvic inflammatory disease Goals to Promote Your Health * To prevent worsening of your condition and complications, and to maintain your health at the optimal level take all of your medications as prescribed and follow up with your primary care physician within one week after hospital discharge. Directions to Meet Your Goals Take your medications as prescribed Follow your dietary instruction Follow activity as directed Keep your appointments as scheduled Take your immunizations and boosters as scheduled If your symptoms worsen call your PCP, if no PCP go to Urgent Care Center or Emergency Room Smoking is Dangerous to Your Health. Avoid second hand smoke Call the 24-hour hour crisis hotline for domestic abuse at Neftaly Blackwell MD R2 July 23, 2017 11:00
[2017-07-23] MEDS ORDERED: DOXY100C PO (11:01)
[2017-07-23 12:00] VITALS: BP 99/55; PULSE 75; RESP 18; TEMP 97.7; O2SAT 98
== END 2017-07-23 14:29 | disposition home or self-care (01) | DRG 759 ==
LOC: NEPD 17:38 → NEDA 20:02 → N07A 21:52
PROVIDERS: ADMIT Obstetrics & Gynecology Maternal & Fetal Medicine; ATTEND Obstetrics & Gynecology Maternal & Fetal Medicine
DX: A54.24 Gonococcal female pelvic inflammatory disease (principal); F14.90 Cocaine use, unspecified, uncomplicated; Z72.0 Tobacco use; Z88.0 Allergy status to penicillin
CPT/HCPCS: 74177; 76856; 76937; 80053; 80307; 81001; 82550; 83605; 83690; 84703; 85025; 85652; 87040; 87210; 87491; 87591; 96361; 96374; 96375; J1580; J1885; J2405; J7030; Q9967

== ENCOUNTER 2017-09-04 02:27 | Inpatient (IN) | payer SELFPAY ==
[~2017-09-04] VITALS: Ht 160 cm; Wt 104.6 kg
[2017-09-04] VITALS (11 sets, daily range): BP systolic 95–123; BP diastolic 59–75; PULSE 72–91; RESP 11–22; TEMP 96.7–98.9; O2SAT 99–100
[~2017-09-04 02:27] MED LIST changes: +DOCU1CAP39 PO; +DOXY100C PO; -ROBA750T PO; +TRAM50TA PO
[2017-09-04] MEDS ORDERED: SODIUM CHLOR 0.9% 1000 ML INJ 1,000 ML IV ONE ×2 (03:00→07:15)
[2017-09-04] MEDS ORDERED: SODIUM CHLORIDE 0.9% FLUSH 10 ML FLUSH IVF PRN (03:00)
--- NOTE | 2017-09-04 03:06 | PD ---
HPI Chief Complaint: OD/ Ingestion Time Seen by Provider: 02:52 Travel History International Travel<30 days: No Contact w/Intl Traveler<30days: No Traveled to known affect area: No History of Present Illness HPI 32-year-old female presents to the emergency department by private transportation complaining of suicidal ideation and admitting to overdosing on Vistaril prior to arrival to the emergency department. Patient has prescription bottles for Vistaril 25 mg Vistaril 50 mg buspirone and bupropion. The hydroxyzine 50 mg bottle is empty and the label is difficult to discern date of prescription and quantity prescribed however patient reports it was a 3 month supply the body is empty and she estimates that she took 120 50 mg hydroxyzine. Patient also admits to drinking alcohol. Patient denies taking any acetaminophen or aspirin. Patient states that she was trying to kill herself. Patient states she wants to get over the pain people should not have to have some much pain but does not identify any specific area on the body that is painful at this time. Patient denies any recent respiratory illness or febrile illness. Patient states she took the overdose shortly before coming to the emergency department. Patient presents with drowsiness. Patient recently hospitalized 07/21/17 to 07/23/17 for PID. [facility] Past Medical History Narrative Medical Anxiety depression PID substance use/'s cocaine use ovarian cysts, D&C, tubal ligation, , nursing notes reviewed Arthritis: No Asthma: No Autoimmune Disease: No Blood Disorders: No Bipolar Disorder: Yes Anxiety: Yes Depression: Yes Heart Rhythm Problems: No Cardiovascular Problems: No Chemotherapy: No Chest Pain: No Congestive Heart Failure: No COPD: No Cerebrovascular Accident: No Diabetes: No Diminished Hearing: No Endocrine: Yes Gastrointestinal Disorders: No GERD: No Genitourinary: No Hiatal Hernia: No Heparin Induced Thrombocytopen: No Immune Disorder: No Kidney Stones: No Musculoskeletal: No Neurologic: No Psychiatric: Yes (bipolar,ADHD) Reproductive: Yes (OVIAN CYSTS, GONORRHEA) Respiratory: No Immunizations Current: No Migraines: No Radiation Therapy: No Renal Failure: No Sickle Cell Disease: No Sleep Apnea: No Thyroid Disease: No Ulcer: No ?: Unknown LMP: unknown : 6 Para: 4 Miscarriage: 2 Ovarian Cysts: Yes (LT SIDE) Dilation and Curettage (D&C): Yes Tubal Ligation: Yes Past Surgical History Abdominal Surgery: No AICD: No Arteriovenous Shunt: No Cardiac Surgery: No Section: Yes (06,08,11,13) Ear Surgery: No Endocrine Surgery: No Eye Surgery: No Genitourinary Surgery: No Gynecologic Surgery: Yes (4 c-sections) Insulin Pump: No Joint Replacement: No Neurologic Surgery: No Oral Surgery: No Pacemaker: No Thoracic Surgery: No Tonsillectomy: Yes Other Surgery: Yes Social History Alcohol Use: Yes Tobacco Use: Yes Substance Use: Yes (cocaine) Allergies-Medications (Allergen,Severity, Reaction): Coded Allergies: azithromycin (Unverified Allergy, Severe, 09/04/17) levofloxacin (Unverified Allergy, Severe, 09/04/17) penicillin G (Unverified Allergy, Severe, Hives, 09/04/17) ceftriaxone (Unverified Allergy, Intermediate, 09/04/17) codeine (Unverified Allergy, Unknown, 09/04/17) morphine (Unverified Allergy, Unknown, 09/04/17) Reported Meds & Prescriptions Reported Meds & Active Scripts Active Reported Bupropion HCl 100 Mg Tab 150 Mg PO BID Hydroxyzine Pamoate 50 Mg Cap 50 Mg PO BID Buspirone (Buspirone HCl) 10 Mg Tab 10 Mg PO BID Hydroxyzine Pamoate 50 Mg Cap 50 Mg PO BID Review of Systems Except as stated in HPI: all other systems reviewed are Neg Physical Exam Narrative GENERAL: Well-developed well-nourished female in no acute distress no respiratory distress however crying and mildly drowsy; GCS 15 SKIN: Warm and dry. HEAD: Normocephalic. EYES: No scleral icterus. No injection or drainage. Bilateral pupils equal round reactive to light extraocular muscles intact ENT: Mucous membranes moist airways patent. NECK: Supple, trachea midline. No JVD or lymphadenopathy. CARDIOVASCULAR: Regular rate and rhythm without murmurs, gallops, or rubs. RESPIRATORY: Breath sounds equal bilaterally. No accessory muscle use. GASTROINTESTINAL: Abdomen soft, non-tender, nondistended. MUSCULOSKELETAL: No cyanosis, or edema. BACK: Nontender without obvious deformity. No CVA tenderness. Data Data Last Documented VS Vital Signs Date Time Temp Pulse Resp B/P (MAP) Pulse Ox O2 Delivery O2 Flow Rate FiO2 09/04/17 03:41 100 Room Air 09/04/17 03:33 98.5 81 18 Orders Orders Electrocardiogram (09/04/17 02:52) Complete Blood Count With Diff (09/04/17 02:52) Comprehensive Metabolic Panel (09/04/17 02:52) Prothrombin Time / Inr (Pt) (09/04/17 02:52) Act Partial Throm Time (Ptt) (09/04/17 02:52) Urinalysis - C+S If Indicated (09/04/17 02:52) Chest, Single Ap (09/04/17 02:52) Blood Glucose (09/04/17 02:52) Iv Access Insert/Monitor (09/04/17 02:52) Ecg Monitoring (09/04/17 02:52) Oximetry (09/04/17 02:52) Sodium Chloride 0.9% Flush (Ns Flush) (09/04/17 03:00) Call Poison Control (09/04/17 02:52) Drug Screen, Random Urine (09/04/17 02:52) Alcohol (Ethanol) (09/04/17 02:52) Salicylates (Aspirin) (09/04/17 02:52) Tylenol (Acetaminophen) (09/04/17 02:52) Sodium Chlor 0.9% 1000 Ml Inj (Ns 1000 M (09/04/17 03:00) Magnesium (Mg) (09/04/17 02:52) Ed Urine Pregnancytest Poc (09/04/17 03:06) Cath For Specimen (09/04/17 04:18) Urine Culture (09/04/17 04:17) Dextrose 50% In Kamari (Syr) Inj (D50w (Syr (09/04/17 05:00) Doxycycline Inj (Vibramycin Inj) (09/04/17 05:00) Blood Glucose (09/04/17 04:56) Ckmb (Isoenzyme) Profile (09/04/17 05:24) Electrocardiogram (09/04/17 ) Troponin I (09/04/17 05:24) Admit Order (Ed Use Only) (09/04/17 ) Manager Of Application Development / Telemetry [id number] (09/04/17 05:31) Diet Npo (09/04/17 Breakfast) Activity Bed Rest (09/04/17 05:31) Notify Dr: Other (09/04/17 05:31) CKMB (09/04/17 04:10) CKMB% (09/04/17 04:10) Labs Laboratory Tests Test 09/04/17 03:19 09/04/17 04:10 09/04/17 04:17 White Blood Count 8.4 TH/MM3 Red Blood Count 4.48 MIL/MM3 Hemoglobin 12.8 GM/DL Hematocrit 38.1 % Mean Corpuscular Volume 85.0 FL Mean Corpuscular Hemoglobin 28.5 PG Mean Corpuscular Hemoglobin Concent 33.5 % Red Cell Distribution Width 14.5 % Platelet Count 293 TH/MM3 Mean Platelet Volume 9.1 FL Neutrophils (%) (Auto) 62.6 % Lymphocytes (%) (Auto) 26.6 % Monocytes (%) (Auto) 8.0 % Eosinophils (%) (Auto) 2.2 % Basophils (%) (Auto) 0.6 % Neutrophils # (Auto) 5.2 TH/MM3 Lymphocytes # (Auto) 2.2 TH/MM3 Monocytes # (Auto) 0.7 TH/MM3 Eosinophils # (Auto) 0.2 TH/MM3 Basophils # (Auto) 0.1 TH/MM3 CBC Comment DIFF FINAL Differential Comment Prothrombin Time 10.7 SEC Prothromb Time International Ratio 1.1 RATIO Activated Partial Thromboplast Time 22.8 SEC Salicylates Level LESS THAN 1.7 MG/DL Blood Urea Nitrogen 13 MG/DL Creatinine 0.92 MG/DL Random Glucose 71 MG/DL Total Protein 9.1 GM/DL Albumin 3.4 GM/DL Calcium Level 8.3 MG/DL Magnesium Level 2.0 MG/DL Alkaline Phosphatase 75 U/L Aspartate Amino Transf (AST/SGOT) 11 U/L Alanine Aminotransferase (ALT/SGPT) 13 U/L Total Bilirubin 0.8 MG/DL Sodium Level 141 MEQ/L Potassium Level 3.8 MEQ/L Chloride Level 109 MEQ/L Carbon Dioxide Level 21.5 MEQ/L Anion Gap 11 MEQ/L Estimat Glomerular Filtration Rate 87 ML/MIN Total Creatine Kinase 115 U/L Creatine Kinase MB 1.5 NG/ML Troponin I LESS THAN 0.02 NG/ML Acetaminophen Level LESS THAN 2.0 MCG/ML Ethyl Alcohol Level LESS THAN 3 MG/DL Urine Color YELLOW Urine Turbidity HAZY Urine pH 6.0 Urine Specific [place] 1.029 Urine Protein 30 mg/dL Urine Glucose (UA) NEG mg/dL Urine Ketones TRACE mg/dL Urine Occult Blood MOD Urine Nitrite NEG Urine Bilirubin NEG Urine Urobilinogen 4.0 OR GREATER mg/dL Urine Leukocyte Esterase MOD Urine RBC 5 /hpf Urine WBC 63 /hpf Urine Squamous Epithelial Cells 3 /hpf Urine Bacteria FEW /hpf Urine Mucus FEW /lpf Microscopic Urinalysis Comment CULTURE INDICATED Urine Opiates Screen NEG Urine Barbiturates Screen NEG Urine Amphetamines Screen NEG Urine Benzodiazepines Screen NEG Urine Cocaine Screen POS Urine Cannabinoids Screen NEG MDM Medical Decision Making Medical Screen Exam Complete: Yes Emergency Medical Condition: Yes Medical Record Reviewed: Yes Interpretation(s) EKG: Normal sinus rhythm rate [address] elevation injury pattern or ectopy noted QTc 410 ms Urine drug screen: Positive for cocaine Serum alcohol: Less than 3, not elevated Acetaminophen level less than 2, not elevated Salicylate level less than 1.7, not elevated CBC is automated differential grossly normal range Metabolic panel remarkable for mild hypoglycemia at 70 Last Impressions Chest X-Ray 09/04/17 0252 Signed Impressions: CONCLUSION: Negative examination. CBC & BMP Diagram 09/04/17 03:19 09/04/17 04:10 Total Protein 9.1 H, Albumin 3.4, Calcium Level 8.3 L, Magnesium Level 2.0, Alkaline Phosphatase 75, Aspartate Amino Transf (AST/SGOT) 11 L, Alanine Aminotransferase (ALT/SGPT) 13, Total Bilirubin 0.8 Vital Signs Date Time Temp Pulse Resp B/P (MAP) Pulse Ox O2 Delivery O2 Flow Rate FiO2 09/04/17 03:41 100 Room Air 09/04/17 03:33 98.5 81 18 123/61 (81) 100 Room Air 09/04/17 02:39 98.9 91 19 119/75 (90) 99 Differential Diagnosis Intentional overdose, suicidal ideation, polysubstance ingestion, histamine overdose, alcohol intoxication, depression, mood disorder Narrative Course Patient placed on quality assurance monitor body IV access obtained specimens collected and sent for resulting; EKG performed a sinus rhythm no acute ST elevation injury pattern or ectopy noted QTc 410 ms; poison control called Patient remains drowsy but awake and able to answer questions appropriately Patient reassessed for repeat lab draw decreasing level of consciousness with GCS 12-11 Urinalysis abnormal patient given first dose of antibiotic due to multiple antibiotic allergies and inability to take oral medication patient given doxycycline 100 mg IV piggyback 1 dose Patient's case discussed with on-call ditching machine engineer as her presenting level of consciousness was 15 with drowsiness but now has decreased to 12/11. Patient still has intact mentation when awake but is very somnolent. Patient's case discussed with Dr. Kellogg who accepts patient for admission to the ICU in view of unknown quantity of polysubstance ingestion and request patient to be admitted to Dr. Martines's service to the ICU, patient will require close monitoring for respiratory depression at this point time patient is able to protect her airway and presently imminent intubation is not needed. Critical Care Narrative Aggregate critical care time was 40 minutes. Time to perform other separately billable procedures was not included in the critical care time. My time did not include minutes spent treating any other patients simultaneously or on activities that did not directly contribute to the patient's treatment. The services I provided to this patient were to treat and/or prevent clinically significant deterioration that could result in: Respiratory failure respiratory arrest aspiration I provided critical care services requiring my management, as noted below: Chart data review, documentation time, medication orders and management, vital sign assessments/reviewing monitor data, ordering and reviewing lab tests, ordering and interpreting/reviewing x-rays and diagnostic studies, care of the patient and discussion of the patient with the admitting physicians. Physician Communication Physician Communication discussed with Dr Kellogg --admit to Dr Martines Diagnosis Primary Impression: Intentional overdose of drug in tablet form Additional Impressions: Suicidal ideations Depression UTI (urinary tract infection) Oralia Matthews MD Sep 04, 2017 03:06
[2017-09-04 03:42] LABS: AUTOMATED NEUTROPHIL # 5.2 TH/MM3 (1.8-7.7); BASOPHIL # 0.1 TH/MM3 (0-0.2); BASOPHIL % 0.6 % (0.0-2.0); EOSINOPHIL # 0.2 TH/MM3 (0-0.4); EOSINOPHIL % 2.2 % (0.0-4.0); HEMATOCRIT 38.1 % (35.0-46.0); HEMOGLOBIN 12.8 GM/DL (11.6-15.3); LYMPH % 26.6 % (9.0-44.0); LYMPHOCYTE # 2.2 TH/MM3 (1.0-4.8); MEAN CORPUSCULAR HEMOGLOBIN 28.5 PG (27.0-34.0); MEAN CORPUSCULAR HGB CONC 33.5 % (32.0-36.0); MEAN PLATELET VOLUME 9.1 FL (7.0-11.0); MONOCYTE # 0.7 TH/MM3 (0-0.9); NEUT % 62.6 % (16.0-70.0); PLATELET COUNT 293 TH/MM3 (150-450); RED BLOOD COUNT 4.48 MIL/MM3 (4.00-5.30); RED CELL DISTRIBUTION WIDTH 14.5 % (11.6-17.2); WHITE BLOOD COUNT 8.4 TH/MM3 (4.0-11.0)
[2017-09-04 03:53] LABS: INTERNATIONAL NORMALIZED RATIO 1.1 RATIO; PROTHROMBIN TIME - PATIENT 10.7 SEC (9.8-11.6)
[2017-09-04 03:59] LABS: ALKALINE PHOSPHATASE 75 U/L (45-117); TOTAL BILIRUBIN ADULT 0.8 MG/DL (0.2-1.0); TOTAL PROTEIN 9.1 GM/DL (6.4-8.2)
--- NOTE | 2017-09-04 04:11 | RADRPT ---
EXAM DATE: 09/04/2017 3:39 AM EDT AGE/SEX: 32 years / Female INDICATIONS: Syncope. Weakness. Cough. CLINICAL DATA: This is the patient's initial encounter. Patient reports that signs and symptoms have been present for 2 days and indicates a pain score of 5/10. MEDICAL/SURGICAL HISTORY: None. None. COMPARISON: No prior exams available for comparison. FINDINGS: A single AP view of the chest demonstrates the lungs to be symmetrically aerated without evidence of mass, infiltrate or effusion. The cardiomediastinal contours are unremarkable. Osseous structures a re intact. CONCLUSION: Negative examination. Electronically signed by: Ricardo Wisdom MD 09/04/2017 4:09 AM EDT
[2017-09-04 04:38] LABS: BACTERIA, URINE FEW /hpf; BILIRUBIN, URINE NEG (NEG); BLOOD, URINE MOD (NEG); GLUCOSE,URINE NEG (NEG); KETONE, URINE TRACE mg/dL (NEG); MUCUS URINE FEW /lpf (OCC); NITRITE,URINE NEG (NEG); SQUAMOUS EPITHELIAL CELL URINE 3 /hpf (0-5); URINE COLOR YELLOW (YELLW/STRAW); URINE LEUKOCYTE ESTERASE MOD (NEG)
[2017-09-04 04:43] LABS: ALBUMIN 3.4 GM/DL (3.4-5.0); ALT (GPT) 13 U/L (10-53); AST (GOT) 11 U/L (15-37); BICARBONATE 21.5 MEQ/L (21.0-32.0); BLOOD UREA NITROGEN 13 MG/DL (7-18); CALCIUM 8.3 MG/DL (8.5-10.1); CHLORIDE 109 MEQ/L (98-107); CREATININE 0.92 MG/DL (0.50-1.00); GLOMERULAR FILTRATION RATE 87 ML/MIN (>89); GLUCOSE,RANDOM 71 MG/DL (74-106); SODIUM (NA) 141 MEQ/L (136-145)
[2017-09-04] MEDS ORDERED: HYDR50CA PO (04:43)
[2017-09-04] MEDS ORDERED: BUSP10TA PO (04:43)
[2017-09-04] MEDS ORDERED: BUPR100T4 PO (04:43)
[2017-09-04 04:51] LABS: ACETAMINOPHEN LESS THAN 2.0 MCG/ML (10.0-30.0)
[2017-09-04] MEDS ORDERED: DEXTROSE 50% IN WATER 50 ML SYRINGE IV PUSH ONE (05:00)
[2017-09-04] MEDS ORDERED: DOXYCYCLINE INJ 100 MG in SODIUM CHLORIDE 0.9% INJ 100 ML IV ONE (05:00)
[2017-09-04 05:53] LABS: TROPONIN I LESS THAN 0.02 NG/ML (0.02-0.05)
[2017-09-04] MEDS ORDERED: CHLORHEXIDINE GLUCONATE 2 % 1 PACK (2 CLOTHS) TOP PRN (06:30)
[2017-09-04] MEDS ORDERED: NURSING INFORMATION XX SCH (06:30)
[2017-09-04] MEDS ORDERED: RESP: ALBUTEROL 2.5 MG/IPRATROPIUM 0.5 MG NEB (PRN) INH (06:30)
--- NOTE | 2017-09-04 06:49 | HHI.HP ---
HPI Service Critical Care Medicine Primary Care Physician No Primary Care Physician Admission Diagnosis polysubstance intentional overdose; uti Diagnosis: Chief Complaint: lethargy Travel History International Travel<30 Days: No Contact w/Intl Traveler <30 Da: No Traveled to Known Affected Are: No History of Present Illness 32-year-old lady with history of bipolar disorder and anxiety, with prior history of inpatient psych admit for suicidal ideation, recently admitted to [facility] in July for PID, now presents to ED after overdosing on hydroxyzine prior to arrival. Information is obtained from ED chart since patient is too lethargic to provide full history. It is unclear how many pills patient took but appears that it was a 3 month supply and she estimates that she took 120 pills of 50 mg of hydroxyzine. Patient also admits to drinking alcohol. In ED , patient is hemodynamically stable, lethargic but arousable, following some commands. She was given 1 L IV fluids and dextrose for borderline hypoglycemia. Glucose of 71, repeat 102. [facility] is consulted for ICU admission. Patient is seen in ED, lethargic but arousable, not able to provide full history , however she remains oriented to person, place and date. She is protecting her airway. Review of Systems ROS Limitations: Other (Patient is lethargic but arousable, however she is not able to provide a full review of systems) Past Family Social History Allergies: Coded Allergies: azithromycin (Unverified Allergy, Severe, 09/04/17) levofloxacin (Unverified Allergy, Severe, 09/04/17) penicillin G (Unverified Allergy, Severe, Hives, 09/04/17) ceftriaxone (Unverified Allergy, Intermediate, 09/04/17) codeine (Unverified Allergy, Unknown, 09/04/17) morphine (Unverified Allergy, Unknown, 09/04/17) Past Medical History Bipolar disorder, anxiety, depression, previous inpatient psych admit for suicidal ideation, gonorrhea, PID Past Surgical History Reported Medications Reported Meds & Active Scripts Active Reported Bupropion HCl 100 Mg Tab 150 Mg PO BID Hydroxyzine Pamoate 50 Mg Cap 50 Mg PO BID Buspirone (Buspirone HCl) 10 Mg Tab 10 Mg PO BID Hydroxyzine Pamoate 50 Mg Cap 50 Mg PO BID Active Ordered Medications Current Medications Medications (Trade) Dose Ordered Sig/Prasanth Route Start Time Stop Time Status Last Admin (NS Flush) 2 ml UNSCH PRN IVF 09/04/17 03:00 09/04/17 05:08 Dextrose/Sodium Chloride 1,000 ml @ 125 mls/hr Q8H IV 09/04/17 06:22 UNV (Pepcid Inj) 20 mg Q12HR IV PUSH 09/04/17 09:00 UNV (Duoneb Neb) 1 ampule Q4HR NEB PRN INH 09/04/17 06:30 UNV (Lovenox Inj) 40 mg Q24H SQ 09/05/17 09:00 UNV ([facility]) 1 [id number] XX 09/04/17 06:30 UNV (Chlorhexidine 2% Cloth) 3 pack Taper DAILY@04 TOP 09/05/17 04:00 09/01/18 03:59 UNV (Chlorhexidine 2% Cloth) 3 pack UNSCH PRN TOP 09/04/17 06:30 UNV Family History Unobtainable, patient is lethargic Social History Per ED chart + EtOH, + drugs, + tobacco Physical Exam Vital Signs Vital Signs Date Time Temp Pulse Resp B/P (MAP) Pulse Ox O2 Delivery O2 Flow Rate FiO2 09/04/17 03:41 100 Room Air 09/04/17 03:33 98.5 81 18 123/61 (81) 100 Room Air 09/04/17 02:39 98.9 91 19 119/75 (90) 99 Physical Exam General - young lady, lethargic, arousable HEENT - pupils equal, reactive, sclerae anicteric, neck supple, no nuchal rigidity, neck veins not distended, no carotid bruit, moist mucous membranes, no thrush CV - regular S1, S2, no murmurs Chest - clear b/l, good air entry, no wheezes Abdomen - soft, non-tender, non-distended, BS present, no hepatomegaly, no splenomegaly Skin - no rashes, no cyanosis Extremities - warm and well perfused, no edema, + peripheral pulses, no clubbing Neuro - lethargic but arousable, oriented 3, moves all extremities Laboratory U tox reviewed, cocaine positive Troponin negative, CPK 115 Magnesium 2 INR 1.1 Salicylate less than 1.7 Acetaminophen less than 2 Ethanol level less than 3 Laboratory Tests Test 09/04/17 03:19 09/04/17 04:10 09/04/17 04:17 White Blood Count 8.4 Red Blood Count 4.48 Hemoglobin 12.8 Hematocrit 38.1 Mean Corpuscular Volume 85.0 Mean Corpuscular Hemoglobin 28.5 Mean Corpuscular Hemoglobin Concent 33.5 Red Cell Distribution Width 14.5 Platelet Count 293 Mean Platelet Volume 9.1 Neutrophils (%) (Auto) 62.6 Lymphocytes (%) (Auto) 26.6 Monocytes (%) (Auto) 8.0 Eosinophils (%) (Auto) 2.2 Basophils (%) (Auto) 0.6 Neutrophils # (Auto) 5.2 Lymphocytes # (Auto) 2.2 Monocytes # (Auto) 0.7 Eosinophils # (Auto) 0.2 Basophils # (Auto) 0.1 CBC Comment DIFF FINAL Differential Comment Prothrombin Time 10.7 Prothromb Time International Ratio 1.1 Activated Partial Thromboplast Time 22.8 Salicylates Level LESS THAN 1.7 Blood Urea Nitrogen 13 Creatinine 0.92 Random Glucose 71 Total Protein 9.1 Albumin 3.4 Calcium Level 8.3 Magnesium Level 2.0 Alkaline Phosphatase 75 Aspartate Amino Transf (AST/SGOT) 11 Alanine Aminotransferase (ALT/SGPT) 13 Total Bilirubin 0.8 Sodium Level 141 Potassium Level 3.8 Chloride Level 109 Carbon Dioxide Level 21.5 Anion Gap 11 Estimat Glomerular Filtration Rate 87 Total Creatine Kinase 115 Creatine Kinase MB 1.5 Troponin I LESS THAN 0.02 Acetaminophen Level LESS THAN 2.0 Ethyl Alcohol Level LESS THAN 3 Urine Color YELLOW Urine Turbidity HAZY Urine pH 6.0 Urine Specific [place] 1.029 Urine Protein 30 Urine Glucose (UA) NEG Urine Ketones TRACE Urine Occult Blood MOD Urine Nitrite NEG Urine Bilirubin NEG Urine Urobilinogen 4.0 OR GREATER Urine Leukocyte Esterase MOD Urine RBC 5 Urine WBC 63 Urine Squamous Epithelial Cells 3 Urine Bacteria FEW Urine Mucus FEW Microscopic Urinalysis Comment CULTURE INDICATED Urine Opiates Screen NEG Urine Barbiturates Screen NEG Urine Amphetamines Screen NEG Urine Benzodiazepines Screen NEG Urine Cocaine Screen POS Urine Cannabinoids Screen NEG Date/Time Source Procedure Growth Status 09/04/17 04:17 Urine Random Urine Urine Culture Pending Received Result Diagram: 09/04/17 0319 09/04/17 0410 Imaging Last Impressions Chest X-Ray 09/04/17 0252 Signed Impressions: CONCLUSION: Negative examination. Course EKG reviewed, sinus rhythm at 81, NH 197, QTc 410, QRS 109, no ST-T changes Caprini VTE Risk Assessment Caprini VTE Risk Assessment: No/Low Risk (score <= 1) Caprini Risk Assessment Model Point Value = 1 Point Value = 2 Point Value = 3 Point Value = 5 Age 41-60 Minor surgery BMI > 25 kg/m2 Swollen legs Varicose veins or History of unexplained or recurrent spontaneous Oral contraceptives or hormone replacement Sepsis (< 1 month) Serious lung disease, including pneumonia (< 1 month) Abnormal pulmonary function Acute myocardial infarction Congestive heart failure (< 1 month) History of inflammatory bowel disease Medical patient at bed rest Age 61-74 Arthroscopic surgery Major open surgery (> 45 min) Laparoscopic surgery (> 45 min) Malignancy Confined to bed (> 72 hours) Immobilizing plaster cast Central venous access Age >= 75 History of VTE Family history of VTE Factor V Leiden Prothrombin [id number] Lupus anticoagulant Anticardiolipin antibodies Elevated serum homocysteine Heparin-induced thrombocytopenia Other congenital or acquired thrombophilia Stroke (< 1 month) Elective arthroplasty Hip, pelvis, or leg fracture Acute spinal cord injury (< 1 month) Prophylaxis Regimen Total Risk Factor Score Risk Level Prophylaxis Regimen 0-1 Low Early ambulation 2 Moderate Order ONE of the following: *Sequential Compression Device (SCD) *Heparin 5000 units SQ BID 3-4 Higher Order ONE of the following medications: *Heparin 5000 units SQ TID *Enoxaparin/Lovenox 40 mg SQ daily (WT < 150 kg, CrCl > 30 mL/min) *Enoxaparin/Lovenox 30 mg SQ daily (WT < 150 kg, CrCl > 10-29 mL/min) *Enoxaparin/Lovenox 30 mg SQ BID (WT < 150 kg, CrCl > 30 mL/min) AND/OR *Sequential Compression Device (SCD) 5 or more Highest Order ONE of the following medications: *Heparin 5000 units SQ TID (Preferred with Epidurals) *Enoxaparin/Lovenox 40 mg SQ daily (WT < 150 kg, CrCl > 30 mL/min) *Enoxaparin/Lovenox 30 mg SQ daily (WT < 150 kg, CrCl > 10-29 mL/min) *Enoxaparin/Lovenox 30 mg SQ BID (WT < 150 kg, CrCl > 30 mL/min) AND *Sequential Compression Device (SCD) Assessment and Plan Assessment and Plan 1. Suicide attempt 2. Polypharmacy overdose: Hydroxyzine, cocaine positive on UDS. Patient also admits to alcohol ingestion however EtOH level is normal 3. Acute encephalopathy secondary to above, currently protecting the airway 4. UTI 5. Borderline hypoglycemia 6. History of bipolar disorder 7. History of anxiety 8. Recent history of PID 1. Admit to ICU 2. Monitor mental status. Neurochecks. If patient becomes more lethargic might need intubation for airway protection 3. IV hydration with dextrose containing fluids 4. Monitor bedside glucose 5. N.p.o. for now 6. Aztreonam 7. Once more awake we will ask psychiatry to evaluate 8. Serial EKGs 9. GI prophylaxis with famotidine 10. DVT prophylaxis Discussed case in detail with poison control. No family present at bedside. Patient is at high risk for further decompensation, requiring intubation and mechanical ventilation. Aydin Granado MD Sep 04, 2017 06:49
[2017-09-04] MEDS: AZTREONAM INJ 1,000 MG in SODIUM CHLORIDE 0.9% INJ 100 ML IV SCH ×2 (09:16→17:15)
[2017-09-04] MEDS: FAMOTIDINE 20 MG/2 ML VIAL IV PUSH SCH ×2 (09:16→21:16)
[2017-09-04] MEDS: DEXT 5%-NACL 0.45% 1000 ML INJ 1,000 ML IV SCH ×2 (09:17→16:58)
[2017-09-04 12:56] LABS: BICARBONATE 24.7 MEQ/L (21.0-32.0); BLOOD UREA NITROGEN 11 MG/DL (7-18); CALCIUM 8.1 MG/DL (8.5-10.1); CHLORIDE 106 MEQ/L (98-107); CREATININE 0.78 MG/DL (0.50-1.00); GLOMERULAR FILTRATION RATE 105 ML/MIN (>89); GLUCOSE,RANDOM 90 MG/DL (74-106); SODIUM (NA) 139 MEQ/L (136-145)
[2017-09-04 13:00] LABS: TROPONIN I LESS THAN 0.02 NG/ML (0.02-0.05)
--- NOTE | 2017-09-04 13:30 | EKG ---
Date Performed: 09/04/2017 Time Performed: 10:53:41 PTAGE: 32 years EKG: Sinus rhythm WITH FIRST DEGREE AV BLOCK MODERATE INTRAVENTRICULAR CONDUCTION DELAY ABNORMAL ECG PREVIOUS TRACING : 09/04/2017 05.41 DOCTOR: Ricardo Edward Interpretating Date/Time 09/04/2017 13:28:52
--- NOTE | 2017-09-04 13:51 | EKG ---
Date Performed: 09/04/2017 Time Performed: 05:41:16 PTAGE: 32 years EKG: Sinus rhythm NORMAL ECG PREVIOUS TRACING : 09/04/2017 02.53 DOCTOR: Riacrdo Edward Interpretating Date/Time 09/04/2017 13:49:24
--- NOTE | 2017-09-04 13:53 | EKG ---
Date Performed: 09/04/2017 Time Performed: 02:53:01 PTAGE: 32 years EKG: Sinus rhythm NORMAL ECG PREVIOUS TRACING : 11/20/2016 09.06 DOCTOR: Ricardo Edward Interpretating Date/Time 09/04/2017 13:50:54
[2017-09-05] VITALS (20 sets, daily range): BP systolic 95–117; BP diastolic 45–68; PULSE 72–86; RESP 14–21; TEMP 97.5–98.5; O2SAT 97–100
[2017-09-05] MEDS: AZTREONAM INJ 1,000 MG in SODIUM CHLORIDE 0.9% INJ 100 ML IV SCH ×3 (02:02→17:55)
[2017-09-05] MEDS: DEXT 5%-NACL 0.45% 1000 ML INJ 1,000 ML IV SCH ×3 (02:03→21:41)
[2017-09-05] MEDS: CHLORHEXIDINE GLUCONATE 2 % 1 PACK (2 CLOTHS) TOP SCH (04:00)
[2017-09-05 04:42] LABS: AUTOMATED NEUTROPHIL # 2.7 TH/MM3 (1.8-7.7); BASOPHIL % 0.6 % (0.0-2.0); EOSINOPHIL # 0.2 TH/MM3 (0-0.4); HEMATOCRIT 33.7 % (35.0-46.0); HEMOGLOBIN 11.1 GM/DL (11.6-15.3); LYMPH % 33.6 % (9.0-44.0); LYMPHOCYTE # 1.8 TH/MM3 (1.0-4.8); MEAN CELL VOLUME 85.6 FL (80.0-100.0); MEAN CORPUSCULAR HEMOGLOBIN 28.2 PG (27.0-34.0); MEAN PLATELET VOLUME 8.9 FL (7.0-11.0); MONO % 9.3 % (0.0-8.0); MONOCYTE # 0.5 TH/MM3 (0-0.9); NEUT % 52.5 % (16.0-70.0); PLATELET COUNT 230 TH/MM3 (150-450); RED BLOOD COUNT 3.93 MIL/MM3 (4.00-5.30); RED CELL DISTRIBUTION WIDTH 14.7 % (11.6-17.2); WHITE BLOOD COUNT 5.2 TH/MM3 (4.0-11.0)
[2017-09-05 05:12] LABS: ALBUMIN 2.6 GM/DL (3.4-5.0); ALKALINE PHOSPHATASE 56 U/L (45-117); ALT (GPT) 11 U/L (10-53); AST (GOT) 6 U/L (15-37); BICARBONATE 24.2 MEQ/L (21.0-32.0); BLOOD UREA NITROGEN 8 MG/DL (7-18); CHLORIDE 108 MEQ/L (98-107); CREATININE 0.81 MG/DL (0.50-1.00); GLOMERULAR FILTRATION RATE 100 ML/MIN (>89); GLUCOSE,RANDOM 77 MG/DL (74-106); MAGNESIUM 1.8 MG/DL (1.5-2.5); PHOSPHORUS 3.7 MG/DL (2.5-4.9); SODIUM (NA) 141 MEQ/L (136-145); TOTAL BILIRUBIN ADULT 0.3 MG/DL (0.2-1.0); TOTAL PROTEIN 6.4 GM/DL (6.4-8.2)
[2017-09-05] MEDS ORDERED: ACETAMINOPHEN 325 MG TAB PO PRN (07:45)
--- NOTE | 2017-09-05 07:45 | HHI.PR ---
Subjective Remarks in no acute distress. awake, alert and oriented. complaining of generalized body ache. still with suicidal thoughts. Objective Vitals Vital Signs Date Time Temp Pulse Resp B/P (MAP) Pulse Ox O2 Delivery O2 Flow Rate FiO2 09/05/17 04:00 75 09/05/17 04:00 98.0 75 16 107/58 (74) 100 09/05/17 02:00 75 09/05/17 00:00 98.4 72 14 107/58 (74) 99 09/05/17 00:00 72 09/04/17 22:00 82 09/04/17 20:00 81 09/04/17 20:00 98.4 81 22 122/72 (89) 100 09/04/17 18:00 79 09/04/17 16:00 96.7 72 19 95/60 (72) 100 09/04/17 16:00 72 09/04/17 14:00 74 09/04/17 12:00 96.9 80 13 101/59 (73) 100 09/04/17 12:00 80 09/04/17 10:00 74 09/04/17 08:16 97.5 77 11 109/63 (78) 100 09/04/17 08:16 77 I/O 09/04/17 09/04/17 09/04/17 09/05/17 09/05/17 09/05/17 07:00 15:00 23:00 07:00 15:00 23:00 Intake Total 100 ml 720 ml Output Total 2000 ml Balance 100 ml -1280 ml Intake Oral 720 ml IV Total 100 ml Output Urine Total 2000 ml Result Diagram: 09/05/17 0328 09/05/17 0328 Imaging Last Impressions Chest X-Ray 09/04/17 0252 Signed Impressions: CONCLUSION: Negative examination. Objective Remarks GENERAL: This is a well-nourished, well-developed patient, in no apparent distress. CARDIOVASCULAR: Regular rate and regular rhythm without murmurs, gallops, or rubs. RESPIRATORY: Clear to auscultation. Breath sounds equal bilaterally. No wheezes , rales, or rhonchi. GASTROINTESTINAL: Abdomen soft, non-tender, nondistended. Normal, active bowel sounds MUSCULOSKELETAL: Extremities without clubbing, cyanosis, or edema. NEURO: Alert & Oriented x4 to person, place, time, situation. Moves all ext x4 Medications and IVs Inpatient Medications Albuterol/ Ipratropium (Duoneb Neb) 1 ampule Q4HR NEB PRN INH WHEEZING; Start 09/04/17 at 06:30 Aztreonam 1000 mg/ Sodium Chloride 100 ml @ 200 mls/hr Q8H IV Last administered on 09/05/17at 02:02; Start 09/04/17 at 09:00 Chlorhexidine Gluconate (Chlorhexidine 2% Cloth) 3 pack UNSCH PRN TOP HYGIENIC CARE; Start 09/04/17 at 06:30 Dextrose (D50w (Syr) Inj) 25 ml ONCE ONCE IV PUSH Last administered on at 05:08; Start 09/04/17 at 05:00; Stop 09/04/17 at 05:01; Status DC Dextrose/Sodium Chloride 1,000 ml @ 125 mls/hr Q8H IV Last administered on at 02:03; Start 09/04/17 at 07:00 Doxycycline Hyclate 100 mg/ Sodium Chloride 100 ml @ 100 mls/hr ONCE ONCE IV Last administered on 09/04/17at 05:45; Start 09/04/17 at 05:00; Stop 09/04/17 at 05:59; Status DC Enoxaparin Sodium (Lovenox Inj) 40 mg Q24H SQ ; Start 09/05/17 at 09:00 Famotidine (Pepcid Inj) 20 mg Q12HR IV PUSH Last administered on 09/04/17at 21: 16; Start 09/04/17 at 09:00 Miscellaneous Information ([facility] [place] [facility] [place]) 1 Q361D XX ; Start at 06:30 Sodium Chloride 1,000 ml @ 999 mls/hr BOLUS ONCE IV ; Start 09/04/17 at 07:15 ; Stop 09/04/17 at 08:15; Status DC Sodium Chloride (NS Flush) 2 ml UNSCH PRN IVF FLUSH AFTER USING IV ACCESS Last administered on 09/04/17at 05:08; Start 09/04/17 at 03:00 A/P Assessment and Plan A/P 1. Suicide attempt/ Polypharmacy overdose with history of bipolar disorder: Hydroxyzine, cocaine positive on UDS. Patient also admits to alcohol ingestion however EtOH level is normal patient is now awake, alert and oriented- continue with supportive care- awaiting psych evaluation. 2. Acute encephalopathy secondary to above- improved. 3. UTI; will deescalate the antibiotic regimen while the cultures is finalized. DVT prophylaxis with subq Lovenox. transfer to floor within the next 24 hrs if stable. Discharge Planning awaiting psych evaluation. Joey Danielson MD Sep 05, 2017 07:45
[2017-09-05] MEDS: ENOXAPARIN SODIUM 40 MG/0.4 ML SYRINGE SQ SCH (08:22)
[2017-09-05] MEDS: FAMOTIDINE 20 MG/2 ML VIAL IV PUSH SCH ×2 (08:22→21:41)
[2017-09-05] MEDS ORDERED: PHENYLEPHRINE HCL 10 MG/ML VIAL ONE (09:10)
[2017-09-05] MEDS ORDERED: LORazepam 1 MG TAB PO PRN (14:15)
[2017-09-05] MEDS ORDERED: LORazepam 2 MG/ML VIAL IV PUSH PRN ×4 (14:15)
[2017-09-05] MEDS ORDERED: LORazepam 2 MG TAB PO PRN (14:15)
[2017-09-05] MEDS ORDERED: FLUMAZENIL 0.5 MG/5 ML VIAL IV PUSH PRN (14:15)
--- NOTE | 2017-09-05 14:19 | PD.PSY.CON ---
Provisional Diagnosis Admission Date Sep 04, 2017 at 05:34 [place] I. Bipolar disorder, recent episode depressive, polysubstance dependence including marijuana, cocaine, alcohol [place] II. Borderline personality disorder [place] III. Anticholinergics overdose [place] IV. Multiple previous suicidal attempts, extensive history of self harming behavior [place] V. 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 Information is obtained from ED chart since patient is too lethargic to provide full history. It is unclear how many pills patient took but appears that it was a 3 month supply and she estimates that she took 120 pills of 50 mg of hydroxyzine. Patient also admits to drinking alcohol. In ED , patient is hemodynamically stable, lethargic but arousable, following some commands. She was given 1 L IV fluids and dextrose for borderline hypoglycemia. Glucose of 71, repeat 102. [facility] is consulted for ICU admission. Patient is seen in ED, lethargic but arousable, not able to provide full history , however she remains oriented to person, place and date. She is protecting her airway. Patient consulted to psychiatry to address suicidal attempt. EMR reviewed. Case discussed with primary medical doctor in the ICU. On my evaluation today the patient is quite irritable, oppositional, refusing to elaborate about the reason of her overdose. she repeatedly states "I want to , let me ". Patient reports that she feels disappointed that she opened her eyes and she was in the hospital, "and no ". The patient reports that she has being using cocaine, alcohol lately, she had broken up with her boyfriend, "I had last everything a care of, I do not deserve to be alive". The patient seems to be quite distressed and irritated. She was unable to contract for safety. Review of Systems Constitutional: DENIES: Diaphoretic episodes, Fatigue, Fever, Weight gain, Weight loss, Chills, Dizziness, Change in appetite, Night Sweats Endocrine: DENIES: Abnorml menstrual pattern, Heat/cold intolerance, Polydipsia , Polyuria, Polyphagia Eyes: DENIES: Blurred vision, Diplopia, Eye inflammation, Eye pain, Vision loss , Photosensitivity, Double Vision Ears, nose, mouth, throat: DENIES: Tinnitus, Hearing loss, Vertigo, Nasal discharge, Oral lesions, Throat pain, Hoarseness, Ear Pain, Running Nose, Epistaxis, Sinus Pain, Toothache, Odynophagia Respiratory: DENIES: Apneas, Cough, Snoring, Wheezing, Hemoptysis, Sputum production, Shortness of breath Cardiovascular: DENIES: Chest pain, Palpitations, Syncope, Dyspnea on Exertion , PND, Lower Extremity Edema, Orthopnea, Claudication Gastrointestinal: DENIES: Abdominal pain, Black stools, Bloody stools, Constipation, Diarrhea, Nausea, Vomiting, Difficulty Swallowing, Anorexia Genitourinary: DENIES: Abnormal vaginal bleeding, Dysmenorrhea, Dyspareunia, Sexual dysfunction, Urinary frequency, Urinary incontinence, Urgency, Hematuria , Dysuria, Nocturia, Vaginal discharge Musculoskeletal: DENIES: Joint pain, Muscle aches, Stiffness, Joint Swelling, Back pain, Neck pain Integumentary: DENIES: Abnormal pigmentation, Pruritus, Rash, Nail changes, Breast masses, Breast skin changes, Nipple discharge Hematologic/lymphatic: DENIES: Bruising, Lymphadenopathy Immunologic/allergic: DENIES: Eczema, Urticaria Neurologic: DENIES: Abnormal gait, Headache, Localized weakness, Paresthesias, Seizures, Speech Problems, Tremor, Poor Balance Psychiatric: COMPLAINS OF: Depression, Suicidal Ideation Past Family Social History Coded Allergies: azithromycin (Unverified Allergy, Severe, 09/04/17) levofloxacin (Unverified Allergy, Severe, 09/04/17) penicillin G (Unverified Allergy, Severe, Hives, 09/04/17) ceftriaxone (Unverified Allergy, Intermediate, 09/04/17) codeine (Unverified Allergy, Unknown, 09/04/17) morphine (Unverified Allergy, Unknown, 09/04/17) Reported Medications Bupropion HCl (Bupropion HCl) 100 Mg Tab, 150 MG PO BID for Control Depression, TAB 0 Refills 09/04/17 Hydroxyzine Pamoate (Hydroxyzine Pamoate) 50 Mg Cap, 50 MG PO BID, CAP 0 Refills 09/04/17 Buspirone (Buspirone) 10 Mg Tab, 10 MG PO BID for Anxiety, TAB 0 Refills 09/04/17 Hydroxyzine Pamoate (Hydroxyzine Pamoate) 50 Mg Cap, 50 MG PO BID, CAP 0 Refills 09/04/17 Discontinued Scripts Doxycycline Hyclate (Doxycycline Hyclate) 100 Mg Cap, 100 MG PO BID for Infection, #20 CAP 0 Refills Prov:Neftaly Blackwell MD R2 07/23/17 Tramadol (Tramadol) 50 Mg Tab, 50 MG PO Q6H Y for PAIN, #10 TAB 0 Refills Prov:Neftaly Blackwell MD R2 07/23/17 Docusate Sodium (Dok) 100 Mg Cap, 100 MG PO BID, #30 CAP Prov:Neftaly Blackwell MD R2 07/23/17 Ibuprofen (Ibuprofen) 600 Mg Tab, 600 MG PO Q4H Y for PAIN 1-5 AND/OR FEVER > 101F, #28 TAB Prov:Neftaly Blackwell MD R2 07/23/17 Current Medications Medications (Trade) Dose Ordered Sig/Prasanth Route Start Time Stop Time Status Last Admin (NS Flush) 2 ml UNSCH PRN IVF 09/04/17 03:00 09/04/17 05:08 Dextrose/Sodium Chloride 1,000 ml @ 125 mls/hr Q8H IV 09/04/17 07:00 09/05/17 11:57 (Pepcid Inj) 20 mg Q12HR IV PUSH 09/04/17 09:00 09/05/17 08:22 (Duoneb Neb) 1 ampule Q4HR NEB PRN INH 09/04/17 06:30 (Lovenox Inj) 40 mg Q24H SQ 09/05/17 09:00 09/05/17 08:22 ([facility] Nursing Information) 1 Q361D XX 09/04/17 06:30 (Chlorhexidine 2% Cloth) 3 pack Taper DAILY@04 TOP 09/05/17 04:00 09/01/18 03:59 09/05/17 04:00 (Chlorhexidine 2% Cloth) 3 pack UNSCH PRN TOP 09/04/17 06:30 Aztreonam 1000 mg/ Sodium Chloride 100 ml @ 200 mls/hr Q8H IV 09/04/17 09:00 09/05/17 08:22 (Tylenol) 650 mg Q4H PRN PO 09/05/17 07:45 Family Psych History The patient reports that her mother has depression, her father bipolar disorder Social History Patient was born and raised in [place], she lives in [facility] with her boyfriend , she has 4 kids are living with her family members, she works in a [employer], her highest level of education is high school Patient's Strengths (min. 2) Verbal communication Physical Exam Patient seems to be quite psychomotor retarded, but no tremors, no EPS, no catatonia present Vital Signs Vital Signs Date Time Temp Pulse Resp B/P (MAP) Pulse Ox O2 Delivery O2 Flow Rate FiO2 09/05/17 12:00 97.5 85 18 105/60 (75) 97 09/04/17 03:41 Room Air I/O 09/05/17 09/05/17 09/05/17 07:59 15:59 23:59 Intake Total 480 ml 100 ml Output Total 1375 ml Balance -895 ml 100 ml Lab Results Test 09/05/17 03:28 White Blood Count 5.2 TH/MM3 Red Blood Count 3.93 MIL/MM3 Hemoglobin 11.1 GM/DL Hematocrit 33.7 % Mean Corpuscular Volume 85.6 FL Mean Corpuscular Hemoglobin 28.2 PG Mean Corpuscular Hemoglobin Concent 33.0 % Red Cell Distribution Width 14.7 % Platelet Count 230 TH/MM3 Mean Platelet Volume 8.9 FL Neutrophils (%) (Auto) 52.5 % Lymphocytes (%) (Auto) 33.6 % Monocytes (%) (Auto) 9.3 % Eosinophils (%) (Auto) 4.0 % Basophils (%) (Auto) 0.6 % Neutrophils # (Auto) 2.7 TH/MM3 Lymphocytes # (Auto) 1.8 TH/MM3 Monocytes # (Auto) 0.5 TH/MM3 Eosinophils # (Auto) 0.2 TH/MM3 Basophils # (Auto) 0.0 TH/MM3 CBC Comment DIFF FINAL Differential Comment Blood Urea Nitrogen 8 MG/DL Creatinine 0.81 MG/DL Random Glucose 77 MG/DL Total Protein 6.4 GM/DL Albumin 2.6 GM/DL Calcium Level 8.0 MG/DL Phosphorus Level 3.7 MG/DL Magnesium Level 1.8 MG/DL Alkaline Phosphatase 56 U/L Aspartate Amino Transf (AST/SGOT) 6 U/L Alanine Aminotransferase (ALT/SGPT) 11 U/L Total Bilirubin 0.3 MG/DL Sodium Level 141 MEQ/L Potassium Level 3.8 MEQ/L Chloride Level 108 MEQ/L Carbon Dioxide Level 24.2 MEQ/L Anion Gap 9 MEQ/L Estimat Glomerular Filtration Rate 100 ML/MIN Date/Time Source Procedure Growth Status 09/04/17 04:17 Urine Random Urine Urine Culture - Preliminary Gram Negative Jamey Resulted Mental Status Examination Appearance: Disheveled Consciousness: Alert Orientation: x4 Motor Activity: Normal gait Speech: Unremarkable Language: Adequate Fund of Knowledge: Adequate Attention and Concentration: Adequate Memory: Unremarkable Mood: Angry, Sad Affect: Irritable Thought Process & Associations: Intact Thought Content: Appropriate Hallucination Type: None Delusion Type: None Suicidal Ideation: Yes Suicidal Plan: Yes Suicidal Intention: Yes Homicidal Ideation: No Homicidal Plan: No Homicidal Intention: No Insight: Poor Judgment: Poor Assessment & Plan Problem List: (1) Bipolar depression ICD Codes: F31.30 - Bipolar disorder, current episode depressed, mild or moderate severity, unspecified Assessment & Plan: On psychiatric evaluation today the patient presents quite irritable, oppositional, refusing to elaborate about emotions and recent suicidal attempt. The patient has tried to commit suicide by overdose and went about 100 pills of hydroxyzine in the context of depression secondary to recent breakup with boyfriend, persistent alcohol and cocaine use, other psychosocial stressors. This is a patient with a psychiatric history of bipolar disorder, polysubstance dependence, borderline personality disorder, multiple psychiatric admissions, multiple suicidal attempts, extensive self cutting and self harming behavior, poor coping skill, poor impulse control, who is right now in a elevated risk of danger to self given her depression and labile mood. She needs psychiatric hospitalization for stabilization. Patient needs to remain with a one-to-one sitter in the medical floor for safety. I will start Seroquel 25 mg twice daily for behavioral dysregulation of bipolar depression. I will start CIWA protocol to prevent alcohol withdrawal. Brief supportive psychotherapy, psychoeducation patient can be transferred to psychiatry once medically stable. Assessment & Plan Estimated LOS: days Shawn Rosales MD Sep 05, 2017 14:19
[2017-09-05] MEDS: QUEtiapine FUMARATE 25 MG TAB PO SCH (21:41)
[2017-09-05] MEDS ORDERED: oxyCODONE/ACETAMINOPHEN 5 MG/325 MG TAB PO ONE (21:45)
[2017-09-06] VITALS (13 sets, daily range): BP systolic 93–108; BP diastolic 49–59; PULSE 66–77; TEMP 98.4–98.8; O2SAT 98–100
[2017-09-06] MEDS: CHLORHEXIDINE GLUCONATE 2 % 1 PACK (2 CLOTHS) TOP SCH (00:48)
[2017-09-06] MEDS: AZTREONAM INJ 1,000 MG in SODIUM CHLORIDE 0.9% INJ 100 ML IV SCH ×2 (00:48→07:44)
[2017-09-06] MEDS: DEXT 5%-NACL 0.45% 1000 ML INJ 1,000 ML IV SCH (04:44)
[2017-09-06] MEDS: FAMOTIDINE 20 MG/2 ML VIAL IV PUSH SCH (07:43)
[2017-09-06] MEDS: ENOXAPARIN SODIUM 40 MG/0.4 ML SYRINGE SQ SCH (07:43)
[2017-09-06] MEDS ORDERED: MACR100C2 PO (07:47)
--- NOTE | 2017-09-06 07:50 | HHI.PR ---
Subjective Remarks in no acute distress. resting comfortably. awake and alert. d/w the RN and no acute issues over night. Objective Vitals Vital Signs Date Time Temp Pulse Resp B/P (MAP) Pulse Ox O2 Delivery O2 Flow Rate FiO2 09/06/17 06:00 69 09/06/17 05:00 69 101/55 (70) 100 09/06/17 04:30 68 101/56 (71) 100 09/06/17 04:00 98.8 77 108/59 (75) 100 09/06/17 04:00 77 09/06/17 03:30 68 97/53 (68) 99 09/06/17 03:00 68 100/54 (69) 100 09/06/17 02:30 67 103/50 (67) 100 09/06/17 02:00 73 99/55 (70) 98 09/06/17 02:00 73 09/06/17 01:30 76 96/50 (65) 98 09/06/17 01:00 74 93/49 (64) 99 09/06/17 00:00 98.4 74 99/54 (69) 99 09/06/17 00:00 75 09/05/17 23:30 76 96/47 (63) 98 09/05/17 23:00 74 95/45 (62) 98 09/05/17 22:00 80 101/51 (68) 99 09/05/17 22:00 80 09/05/17 21:30 79 101/51 (68) 100 09/05/17 21:05 77 103/47 (65) 99 09/05/17 21:00 81 99 09/05/17 20:30 78 110/56 (74) 100 09/05/17 20:00 78 09/05/17 20:00 98.2 79 111/59 (76) 100 09/05/17 19:31 79 117/68 (84) 100 09/05/17 19:00 80 114/62 (79) 100 09/05/17 18:00 83 09/05/17 16:00 98.5 86 20 110/55 (73) 100 09/05/17 16:00 86 09/05/17 14:00 80 09/05/17 12:00 97.5 85 18 105/60 (75) 97 09/05/17 12:00 85 09/05/17 10:00 73 09/05/17 08:00 77 09/05/17 08:00 98.1 77 21 102/57 (72) 100 I/O 09/05/17 09/05/17 09/05/17 09/06/17 09/06/17 09/06/17 07:00 15:00 23:00 07:00 15:00 23:00 Intake Total 480 ml 1090 ml 1820 ml 2062 ml Output Total 1375 ml 2500 ml Balance -895 ml 1090 ml 1820 ml -438 ml Intake Oral 480 ml 720 ml 750 ml IV Total 1090 ml 1100 ml 1312 ml Output Urine Total 1375 ml 2500 ml # Voids 4 # Bowel Movements 0 1 0 Result Diagram: 09/05/17 0328 09/05/17 0328 Imaging Last Impressions Chest X-Ray 09/04/17 0252 Signed Impressions: CONCLUSION: Negative examination. Objective Remarks GENERAL: This is a well-nourished, well-developed patient, in no apparent distress. CARDIOVASCULAR: Regular rate and regular rhythm without murmurs, gallops, or rubs. RESPIRATORY: Clear to auscultation. Breath sounds equal bilaterally. No wheezes , rales, or rhonchi. GASTROINTESTINAL: Abdomen soft, non-tender, nondistended. Normal, active bowel sounds MUSCULOSKELETAL: Extremities without clubbing, cyanosis, or edema. NEURO: Alert & Oriented x4 to person, place, time, situation. Moves all ext x4 Procedures none Medications and IVs Inpatient Medications Acetaminophen (Tylenol) 650 mg Q4H PRN PO FEVER/PAIN 1-10 Last administered on 09/05/17at 18:06; Start 09/05/17 at 07:45 Albuterol/ Ipratropium (Duoneb Neb) 1 ampule Q4HR NEB PRN INH WHEEZING; Start 09/04/17 at 06:30 Aztreonam 1000 mg/ Sodium Chloride 100 ml @ 200 mls/hr Q8H IV Last administered on 09/06/17at 00:48; Start 09/04/17 at 09:00 Chlorhexidine Gluconate (Chlorhexidine 2% Cloth) 3 pack UNSCH PRN TOP HYGIENIC CARE; Start 09/04/17 at 06:30 Dextrose (D50w (Syr) Inj) 25 ml ONCE ONCE IV PUSH Last administered on at 05:08; Start 09/04/17 at 05:00; Stop 09/04/17 at 05:01; Status DC Dextrose/Sodium Chloride 1,000 ml @ 125 mls/hr Q8H IV Last administered on at 04:44; Start 09/04/17 at 07:00 Doxycycline Hyclate 100 mg/ Sodium Chloride 100 ml @ 100 mls/hr ONCE ONCE IV Last administered on 09/04/17at 05:45; Start 09/04/17 at 05:00; Stop 09/04/17 at 05:59; Status DC Enoxaparin Sodium (Lovenox Inj) 40 mg Q24H SQ Last administered on 09/05/17at 08 :22; Start 09/05/17 at 09:00 Famotidine (Pepcid Inj) 20 mg Q12HR IV PUSH Last administered on 09/05/17at 21: 41; Start 09/04/17 at 09:00 Flumazenil (Romazicon Inj) 0.2 mg Q1M PRN IV PUSH SEE LABEL COMMENTS; Start at 14:15 Lorazepam (Ativan Inj) 2 mg Q15M PRN IV PUSH CIWA > 20; Start 09/05/17 at 14:15 Lorazepam (Ativan) 2 mg Q2H PRN PO CIWA 11-14; Start 09/05/17 at 14:15 Miscellaneous Information ([facility] [place] Nursing Information) 1 Q361D XX ; Start at 06:30 Oxycodone/ Acetaminophen (Percocet 5-325 Mg) 1 tab ONCE ONCE PO Last administered on 09/06/17at 05:26; Start 09/05/17 at 21:45; Stop 09/05/17 at 21:46 ; Status DC Quetiapine Fumarate (SEROquel) 25 mg BID PO Last administered on 09/05/17at 21: 41; Start 09/05/17 at 21:00 Sodium Chloride 1,000 ml @ 999 mls/hr BOLUS ONCE IV ; Start 09/04/17 at 07:15 ; Stop 09/04/17 at 08:15; Status DC Sodium Chloride (NS Flush) 2 ml UNSCH PRN IVF FLUSH AFTER USING IV ACCESS Last administered on 09/04/17at 05:08; Start 09/04/17 at 03:00 A/P Assessment and Plan A/P 1. Suicide attempt/ Polypharmacy overdose with history of bipolar disorder: Hydroxyzine, cocaine positive on UDS. Patient also admits to alcohol ingestion however EtOH level is normal patient is now awake, alert and oriented- remained stable over night. psych consult appreciated and plan for inpatient psych admission. 2. Acute encephalopathy secondary to above-resolved. 3. UTI; will switch to po antibiotic. UC with gram negative kacie- the final ID to be followed up. Discharge Planning dc to psych. see med list. f/u; pcp and psych. d/w the patient and RN. Joey Danielson MD Sep 06, 2017 07:50
--- NOTE | 2017-09-06 07:51 | HHI.DS ---
Discharge Summary Admission Date Sep 04, 2017 at 05:34 Discharge Date: Sep 06, 2017 Admitting Diagnosis polysubstance intentional overdose; uti (1) Intentional overdose of drug in tablet form ICD Code: T50.902A - Poisoning by unspecified drugs, medicaments and biological substances, intentional self-harm, initialencounter Diagnosis: Principal Status: Acute Procedures none Brief History - From Admission 32-year-old lady with history of bipolar disorder and anxiety, with prior history of inpatient psych admit for suicidal ideation, recently admitted to [facility] in July for PID, now presents to ED after overdosing on hydroxyzine prior to arrival. Information is obtained from ED chart since patient is too lethargic to provide full history. It is unclear how many pills patient took but appears that it was a 3 month supply and she estimates that she took 120 pills of 50 mg of hydroxyzine. Patient also admits to drinking alcohol. In ED , patient is hemodynamically stable, lethargic but arousable, following some commands. She was given 1 L IV fluids and dextrose for borderline hypoglycemia. Glucose of 71, repeat 102. [facility] is consulted for ICU admission. Patient is seen in ED, lethargic but arousable, not able to provide full history , however she remains oriented to person, place and date. She is protecting her airway. CBC/BMP: 09/05/17 0328 09/05/17 0328 Significant Findings Laboratory Tests Test 09/04/17 03:19 09/04/17 04:10 09/04/17 04:17 09/04/17 06:50 Activated Partial Thromboplast Time 22.8 SEC (24.3-30.1) Salicylates Level LESS THAN 1.7 MG/DL Random Glucose 71 MG/DL (74-106) Total Protein 9.1 GM/DL (6.4-8.2) Calcium Level 8.3 MG/DL (8.5-10.1) Aspartate Amino Transf (AST/SGOT) 11 U/L (15-37) Chloride Level 109 MEQ/L (98-107) Estimat Glomerular Filtration Rate 87 ML/MIN (>89) Troponin I LESS THAN 0.02 NG/ML Acetaminophen Level LESS THAN 2.0 MCG/ML Urine Turbidity HAZY (CLEAR) Urine Protein 30 mg/dL (NEG-TRACE) Urine Ketones TRACE mg/dL (NEG) Urine Occult Blood MOD (NEG) Urine Urobilinogen 4.0 OR GREATER mg/dL (LESS Urine Leukocyte Esterase MOD (NEG) Urine RBC 5 /hpf (0-3) Urine WBC 63 /hpf (0-5) Urine Bacteria FEW /hpf (NONE) Urine Mucus FEW /lpf (OCC) Urine Cocaine Screen POS (NEG) Blood Gas Hemoglobin 11.1 G/DL (12.0-16.0) Test 09/04/17 08:20 09/04/17 12:13 09/05/17 03:28 Calcium Level 8.1 MG/DL (8.5-10.1) 8.0 MG/DL (8.5-10.1) Troponin I LESS THAN 0.02 NG/ML Red Blood Count 3.93 MIL/MM3 (4.00-5.30) Hemoglobin 11.1 GM/DL (11.6-15.3) Hematocrit 33.7 % (35.0-46.0) Monocytes (%) (Auto) 9.3 % (0.0-8.0) Albumin 2.6 GM/DL (3.4-5.0) Aspartate Amino Transf (AST/SGOT) 6 U/L (15-37) Chloride Level 108 MEQ/L (98-107) Imaging Last Impressions Chest X-Ray 09/04/17 0252 Signed Impressions: CONCLUSION: Negative examination. PE at Discharge GENERAL: This is a well-nourished, well-developed patient, in no apparent distress. CARDIOVASCULAR: Regular rate and regular rhythm without murmurs, gallops, or rubs. RESPIRATORY: Clear to auscultation. Breath sounds equal bilaterally. No wheezes , rales, or rhonchi. GASTROINTESTINAL: Abdomen soft, non-tender, nondistended. Normal, active bowel sounds MUSCULOSKELETAL: Extremities without clubbing, cyanosis, or edema. NEURO: Alert & Oriented x4 to person, place, time, situation. Moves all ext x4 Hospital Course 1. Suicide attempt/ Polypharmacy overdose with history of bipolar disorder: Hydroxyzine, cocaine positive on UDS. Patient also admits to alcohol ingestion however EtOH level is normal patient is now awake, alert and oriented- remained stable over night. psych consult appreciated and plan for inpatient psych admission. 2. Acute encephalopathy secondary to above-resolved. 3. UTI; will switch to po antibiotic. UC with gram negative kacie- the final ID to be followed up. Pt Condition on Discharge: Stable Discharge Disposition: Disc to Psych Care Fac Discharge Time: <= 30 minutes Discharge Instructions DIET: Follow Instructions for: Heart Healthy Diet Activities you can perform: Regular-No Restrictions Joey Danielson MD Sep 06, 2017 07:50
[2017-09-06] MEDS: QUEtiapine FUMARATE 25 MG TAB PO SCH (07:59)
[2017-09-06] MEDS ORDERED: NITROFURANTOIN MONOHYD MACROCR 100 MG CAP PO SCH (09:00)
== END 2017-09-06 09:45 | DRG 917 ==
LOC: NEPC 02:27 → NEDA 05:34 → HIME 08:10
PROVIDERS: ADMIT Internal Medicine; ATTEND Internal Medicine
DX: T43.592A Poisoning by other antipsychotics and neuroleptics, intentional self-harm, initial encounter (principal); G92 Toxic encephalopathy; F31.31 Bipolar disorder, current episode depressed, mild; N39.0 Urinary tract infection, site not specified; F19.20 Other psychoactive substance dependence, uncomplicated; F90.9 Attention-deficit hyperactivity disorder, unspecified type; E16.2 Hypoglycemia, unspecified; F60.3 Borderline personality disorder; F41.9 Anxiety disorder, unspecified; Z72.0 Tobacco use; Z88.0 Allergy status to penicillin; Z88.1 Allergy status to other antibiotic agents; Z88.5 Allergy status to narcotic agent; Z91.5 Personal history of self-harm
CPT/HCPCS: 36600; 71045; 76937; 80048; 80053; 80307; 81001; 82550; 82552; 82805; 82948; 83605; 83735; 84100; 84484; 84703; 85025; 85610; 85730; 87077; 87086; 87186; 87641; 93005; 96374; J1650; J2370; J7030; P9612

== ENCOUNTER 2017-09-06 09:55 | Inpatient (IN) ==
[2017-09-15] MEDS ORDERED: LORazepam 1 MG Tablet PO PRN (08:25)
[2017-09-15] MEDS ORDERED: QUEtiapine 100 MG Tablet ONE (08:28)
[2017-09-15] MEDS ORDERED: QUEtiapine 25 MG Tablet ONE (08:28)
[2017-09-15] MEDS ORDERED: Lactobacillus Acidophilus/L. Spores Tablet ONE (08:29)
[2017-09-15] MEDS ORDERED: Famotidine 20 MG Tablet ONE (08:30)
[2017-09-15] MEDS ORDERED: Acetaminophen 325 MG Tablet PO PRN (08:31)
[2017-09-15] MEDS ORDERED: Aluminum/Magnesium/Simethacone Susp 30 ML UDC PO PRN (08:33)
[2017-09-15] MEDS ORDERED: Ibuprofen 400 MG Tablet PO PRN (08:36)
[2017-09-15] MEDS: Famotidine 20 MG Tablet PO SCH ×2 (12:46→21:29)
[2017-09-15] MEDS: Lactobacillus Acidophilus/L. Spores Tablet PO SCH ×2 (12:46→21:29)
[2017-09-15] MEDS: QUEtiapine 25 MG Tablet PO SCH (12:49)
--- NOTE | 2017-09-15 14:25 | P.PNPSY ---
Subjective Remarks: Patient was seen and case discussed with nursing. Patient continues with a one- to-one. However, I highly suspect that patient is manipulative and malingering concerning her suicidal intent. She is observed all day today and yesterday being social and laughing on the unit. Her chief complaint is being annoyed that her one-to-one is always there. Yet, she continues to state she has suicidal ideation and thoughts of hurting herself here on the unit. Mental Status Examination Appearance: Disheveled Consciousness: Alert Orientation: Person, Place, Date/Time Motor Activity: Normal gait Speech: Unremarkable Language: Adequate Fund of Knowledge: Adequate Attention and Concentration: Easily distracted Memory: Unremarkable Mood: Anxious, Irritable Affect: Irritable Thought Process & Associations: Circumstantial Thought Content: Appropriate Hallucination Type: None Delusion Type: None Suicidal Ideation: Yes Suicidal Plan: Yes Suicidal Intention: Yes Homicidal Ideation: No Homicidal Plan: No Homicidal Intention: No Insight: Poor Judgment: Poor Assessment and Plan - Assessment (1) Bipolar disorder, current episode depressed, mild or moderate severity, unspecified Code(s): F31.30 - Bipolar disorder, current episode depressed, mild or moderate severity, unspecified Status: Acute - Plan Plan: Estimated LOS: [] days Continue current treatment plan Justification for Continued Inpatient Stay: Patient would decompensate in a less restrictive setting
[2017-09-15] MEDS ORDERED: QUEtiapine 100 MG Tablet PO SCH (21:00)
[2017-09-16] MEDS: Famotidine 20 MG Tablet PO SCH (09:34)
[2017-09-16] MEDS: QUEtiapine 25 MG Tablet PO SCH (09:34)
[2017-09-16] MEDS: Lactobacillus Acidophilus/L. Spores Tablet PO SCH (09:35)
--- NOTE | 2017-09-16 21:54 | P.DSPSY ---
Psychiatry Discharge Summary Inpatient Psychiatric care?: Yes Advance Directives: No Mental Health Advance Directive: No Health Care Proxy: No - Admission Admission Date: September 06, 2017 09:55 - Admission Diagnosis (1) Bipolar disorder, current episode depressed, mild or moderate severity, unspecified Code(s): F31.30 - Bipolar disorder, current episode depressed, mild or moderate severity, unspecified Brief History: Patient is a 32-year-old -[place] woman, domiciled with boyfriend, employed, has 4 children, with a past psychiatric history of bipolar disorder, anxiety disorder ADHD, polysubstance use disorder, borderline personality disorder, multiple psychiatric admissions, multiple suicide attempts, history of cutting, no current outpatient mental health provider, substance use history significant for alcohol, cocaine and marijuana who was transferred to the inpatient psychiatry unit after medical stabilization status post suicide attempt via overdose on hydroxyzine in the context of recent cocaine use, and breakup with boyfriend. Patient was found lying hospital bed noted B, cooperative. Patient states that she had "a lot stuff going on with my boyfriend" stating that he had recently left her and also being stressed about her mother's declining health. Patient states that she had felt out of control , upset, crying and overwhelmed and had overdosed on 120 capsules of hydroxyzine with the intention to but then had asked a friend to bring her to the hospital so that there would be someone to tell her mother how she had . Patient states that she expected to and continues to endorse wanting to . Patient continues report feeling depressed and endorsing auditory hallucinations of "telling me that if this is the best plan to end". Patient at this time cannot contract for safety, and therefore will be put on one-to- one observation for safety during hospitalization. Family psychiatric history: Mother with depression, followed bipolar disorder, no suicides in the family Past psychiatric history: Previous psychiatric diagnoses bipolar disorder, anxiety, ADHD, borderline personality disorder, polysubstance use disorder ( alcohol, cocaine, marijuana). Patient with multiple psychiatric admissions, multiple suicide attempt last time being 2016, history of self-injurious behavior via cutting last time being 2017. No current outpatient mental health provider. Material Reprocessing Associate medication could trials include Latuda, Adderall, Wellbutrin, Concerta, Seroquel, trazodone. Substance use history: Tobacco use 1-1/2 pack/day, alcohol use once per week usually 1 bottle at a time of liquor, cocaine use once every 3 days usually $150 -$200 worth, marijuana use daily usually about 6 joints at a time. Past medical history: Denies Allergies: Penicillin, Levaquin, morphine, codeine, ceftriaxone, azithromycin Social history: Domiciled with boyfriend, unemployed, has 4 kids, high school education, no background, no asked to firearms. Tobacco Use In Past 30 Days: No How Often Do You Have a Drink Containing Alcohol: Monthly or less Hospital Course: Patient is a 32-year-old -[place] woman, domiciled with boyfriend, employed, has 4 children, with a past psychiatric history of bipolar disorder, anxiety disorder ADHD, polysubstance use disorder, borderline personality disorder, multiple psychiatric admissions, multiple suicide attempts, history of cutting, no current outpatient mental health provider, substance use history significant for alcohol, cocaine and marijuana who was transferred to the inpatient psychiatry unit after medical stabilization status post suicide attempt via overdose on hydroxyzine in the context of recent cocaine use, and breakup with boyfriend which patient was admitted to the inpatient psychiatry for further evaluation and management. Patient was started on quetiapine and titrated to 50mg/250mg PO HS for mood stabilization which she tolerated well with no notable adverse drug reactions. Patient was noted to improved mood and stabilization of mood and was noted to have decrease in internal stimuli and perceptual disturbances. Patient was observed by staff to not have had any behavioral disturbances, not having made any suicidal or homicidal statements and maintained stable mood through admission and was noted to participate with staff adequately. Upon discharge patient stated that she was feeling good, reported well with the treatment, denied any SI, HI, perceptual disturbances or delusions. Weighing the acute, chronic, and protective factors and based on the available evidence, I pilot plant operator to a reasonable degree of medical certainty that the patient is at low imminent risk of harm to self or others from a mental illness as defined under the Rowe act and his level of function is adequate as observed on the unit for planned level of outpatient care. She was counseled regarding warning signs for need to return to the psychiatric emergency room as part of a general safety plan. Patient advised to call 911 or go nearest ED in case of emergency. Patient agreed with plan. - Discharge Discharge Date: 09/16/17 - Discharge Diagnosis (1) Bipolar disorder, current episode depressed, mild or moderate severity, unspecified Code(s): F31.30 - Bipolar disorder, current episode depressed, mild or moderate severity, unspecified Status: Acute Discharge Disposition: Home - Discharge Instructions Discharge Diet: Regular Diet Activities You Can Perform: Regular- No Restrictions - Discharge Time > 30 minutes Mental Status Examination Appearance: Disheveled Consciousness: Alert Orientation: Person, Place, Date/Time Motor Activity: Normal gait Speech: Unremarkable Language: Adequate Fund of Knowledge: Adequate Attention and Concentration: Easily distracted Memory: Unremarkable Mood: Appropriate Affect: Appropriate Thought Process & Associations: Intact, Goal directed, Linear Thought Content: Appropriate Hallucination Type: None Delusion Type: None Suicidal Ideation: No Suicidal Plan: No Suicidal Intention: No Homicidal Ideation: No Homicidal Plan: No Homicidal Intention: No Insight: Adequate Judgment: Adequate Discharge/Advance Care Plan - Results Vital Signs: Last Vital Signs Temp 97.8 F 09/16/17 05:49 Pulse 77 09/16/17 05:49 Resp 16 09/16/17 05:49 BP 80/43 L 09/16/17 05:49 Pulse Ox 100 09/16/17 05:49 Lab Results: Laboratory Results Hemoglobin A1c 4.9 % (4.3-6.0) 09/08/17 10:32 Triglycerides 152 MG/DL (42-150) H 09/08/17 10:32 Cholesterol 164 MG/DL (120-200) 09/08/17 10:32 HDL Cholesterol 46.4 MG/DL (40.0-60.0) 09/08/17 10:32 Summary of Procedures: none Pending Results: None - Medications Number of antipsychotic medications at discharge: 1 - Discharge Care Plan Goals to Promote Your Health: * To prevent worsening of your condition and complications * To maintain your health at the optimal level Directions to Meet Your Goals: Take your medications as prescribed Follow your dietary instruction Follow activity as directed Keep your appointments as scheduled Take your immunizations and boosters as scheduled If your symptoms worsen call your PCP, if no PCP go to Urgent Care Center or Emergency Room For 08/10 questions related to your inpatient stay or results of tests pending at discharge, please contact Dr. Reid Noble MD at Smoking is Dangerous to Your Health. Avoid second hand smoking
== END 2017-09-16 17:10 | disposition home or self-care (01) ==
LOC: H260 09:55
PROVIDERS: ADMIT Student in an Organized Health Care Education/Training Program; ATTEND Student in an Organized Health Care Education/Training Program

== ENCOUNTER 2017-12-13 08:47 | Inpatient (IN) ==
--- NOTE | 2017-12-13 10:03 | ED ---
HPI General Chief Complaint: Psychiatric Symptoms Stated Complaint: psych evalnon Time Seen by Provider: 12/13/17 09:23 Source: patient Mode of arrival: ambulatory Limitations: no limitations History of Present Illness HPI Narrative: 32y female presents to the ED as a psych evaluation voluntarily. She reports there is too much going on and she has not been taking her medication. Patient refers to "all of us" and "they do not listen". She refers to Angie, Darlin, and Merline who are apparently in the room the same time. She reports that Darlin is telling merline to harm herself. She says that she has a history of overdose requiring ICU visit. She says that Darlin tells her it would be "cool if she took pills". She says Angie is upset because she "wants to go to the beach". Patient reports that "they" are supposed to be taking Abilify, Seroquel and occasional Ativan as prescribed by Marshall Feliciano. She reports that she is not taking this medication and "a long time" and is unable to give me a time.. Patient reports that they have been using marijuana and possibly cocaine. States her last alcoholic drink was last night. Patient does not drink daily. complaint: suicidal ideation Onset (ago): unknown Duration: constant History of same: Yes Relieving factors: medication Exacerbating factors: none Associated psychiatric symptoms: depression, suicidal ideation and auditory hallucinations Associated symptoms: denies other symptoms Treatments prior to arrival: none If self harm: admits thoughts of self harm Related Data Home Medications Medication Instructions Recorded Confirmed No Known Home Medications 12/13/17 12/13/17 Allergies Allergy/AdvReac Type Severity Reaction Status Date / Time azithromycin Allergy Severe Hives Unverified 12/13/17 09:42 levofloxacin Allergy Severe Hives Unverified 12/13/17 09:42 penicillin G Allergy Severe Hives Unverified 09/04/17 03:28 ceftriaxone Allergy Intermediate Hives Unverified 12/13/17 09:42 codeine Allergy Unknown Hives Unverified 12/13/17 09:42 morphine Allergy Unknown Hives Unverified 12/13/17 09:42 Review of Systems ROS: all other systems reviewed are negative [facility] Medical History Medical History Schizophrenia (Acute) Surgical History Surgical History H/O section (Acute) History of tonsillectomy (Acute) Social History Social History Substance History: Active Abuse Second Hand Smoke Exposure: Yes Smoking Status: Current every day smoker Tobacco Type: Cigarettes How Often Do You Have a Drink Containing Alcohol: 2 to 4 times a month Recent Travel in [facility] within the Last 8 Weeks: No Recent Out of Country Travel within the Last 8 Weeks: No Substance Abuse Detail Marijuana: Substance Use Status: Active Route Used Substance Abuse: Inhalation Immunization History Tetanus Immunization: >5 Years Exam Narrative Exam Narrative: GENERAL: [-] SKIN: Focused skin assessment warm/dry. HEAD: Atraumatic. Normocephalic. EYES: Pupils equal and round. No scleral icterus. No injection or drainage. ENT: No nasal bleeding or discharge. Mucous membranes pink and moist. NECK: Trachea midline. No JVD. CARDIOVASCULAR: Regular rate and rhythm. No murmur appreciated. RESPIRATORY: No accessory muscle use. Clear to auscultation. Breath sounds equal bilaterally. GASTROINTESTINAL: Abdomen soft, non-tender, nondistended. Hepatic and splenic margins not palpable. MUSCULOSKELETAL: No obvious deformities. No clubbing. No cyanosis. No edema. NEUROLOGICAL: Awake and alert. No obvious cranial nerve deficits. Motor grossly within normal limits. Normal speech. Psych Appearance: grossly normal Mental Status: mental status grossly normal Speech and Movement: restless Mood: dysthymic mood Affect: indifferent Attitude: cooperative Thought Process: confabulating and tangential Thought Content: delusions, hallucinations auditory and suicidality Judgment: poor Course Initial Documented Vital Signs Temperature 98.0 F 12/13/17 08:50 Pulse Rate 91 H 12/13/17 08:50 Respiratory Rate 18 12/13/17 08:50 Blood Pressure 138/83 12/13/17 08:50 Pulse Oximetry 98 12/13/17 08:50 Last Documented Vital Signs Temperature 98.0 F 12/13/17 08:50 Pulse Rate 91 H 12/13/17 08:50 Respiratory Rate 18 12/13/17 08:50 Blood Pressure 138/83 12/13/17 08:50 Pulse Oximetry 98 12/13/17 08:50 Medical Decision Making [facility] Narrative Medical decision making narrative: After review of the medical record, it is apparent the patient has a history of bipolar disorder, anxiety, ADHD, polysubstance use disorder, borderline personality disorder, history of multiple suicide attempts. Medical Screen Exam Complete: Yes Emergency Medical Condition: Yes Differential Diagnosis Differential Diagnosis: Medication noncompliance, schizophrenia, schizoaffective disorder, bipolar disorder Medical Records Medical records reviewed: Yes I reviewed the patient's medical records. Patient was seen in the beginning of September and admitted for psych evaluation treatment. Discharge Plan Discharge Disposition Patient Disposition: 30 Still Patient Discharge Condition Condition: Fair Physicians Team ED Provider: Snow Rowe ED Midlevel Provider: Sonia Mclain Primary Care Provider: UNKNOWN, Rxs /Orders / Referrals /Forms Prescriptions: No Action No Known Home Medications RF: 0 Discharge Interventions Interventions: Vital Signs Last Done: 12/13/17 08:50 Status ED Status: With Doctor
[2017-12-13 10:12] LABS: Baso % (Auto) 0.7 % (0.0-2.0); Eos % (Auto) 0.5 % (0.0-4.0); Hematocrit 33.6 % (35.0-46.0); Lymph # (Auto) 1.7 th/mm3 (1.0-4.8); Mean Corpuscular HGB Conc 32.6 % (32.0-36.0); Mean Corpuscular Hemoglobin 28.2 pg (27.0-34.0); Mean Corpuscular Volume 86.4 fL (80.0-100.0); Mean Platelet Volume 8.7 fL (7.0-11.0); Mono # (Auto) 0.5 th/mm3 (0.0-0.9); Mono % (Auto) 6.9 % (0.0-8.0); Neut # (Auto) 4.4 th/mm3 (1.8-7.7); Neut % (Auto) 66.9 % (16.0-70.0); Platelet Count 239 th/mm3 (150-450); Red Blood Count 3.89 mil/mm3 (4.00-5.30); White Blood Count 6.6 th/mm3 (4.0-11.0)
[2017-12-13 10:32] LABS: Alanine Aminotransferase 16 U/L (10-53); Albumin 3.1 g/dL (3.4-5.0); Anion Gap 8 meq/L (5-15); Aspartate Aminotransferase 15 U/L (15-37); Blood Urea Nitrogen 12 mg/dL (7-18); Calcium 8.3 mg/dL (8.5-10.1); Carbon Dioxide 26.3 meq/L (21.0-32.0); Chloride 110 meq/L (98-107); Glomerular Filtration Rate 78 mL/min (>89); Glucose,Random 82 mg/dL (74-106); Potassium 3.6 meq/L (3.5-5.1); Sodium 144 meq/L (136-145)
[2017-12-13 10:42] LABS: Alkaline Phosphatase 72 U/L (45-117); Total Protein 7.7 g/dL (6.4-8.2)
[2017-12-13 11:14] LABS: Amphetamine Screen,Urine Neg (Neg); Barbiturate Screen,Urine Neg (Neg); Cannabinoid Screen,Urine Neg (Neg); Cocaine Screen,Urine Pos (Neg)
[2017-12-13 11:15] LABS: Opiate Screen,Urine Neg (Neg)
[2017-12-14] MEDS ORDERED: Aluminum/Magnesium/Simethacone Susp 30 ML UDC PO PRN (10:01)
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
[2017-12-14] MEDS: QUEtiapine 25 MG Tablet PO SCH ×2 (17:56→17:57)
[2017-12-14] MEDS: QUEtiapine 100 MG Tablet PO SCH (21:24)
[2017-12-15] MEDS: QUEtiapine 25 MG Tablet PO SCH ×2 (08:53→16:45)
--- NOTE | 2017-12-15 15:17 | P.PNPSY ---
Subjective Remarks: Reviewed electronic medical records and discussed case with staff. Follow-up was conducted in the patient's room with DAX Miramontes present. Patient is very tired and states that she just wants to sleep . She states that she does see things but cannot describe them . She is vague regarding hearing anything. States she is suicidal but has not plan. She states, " just give me some medications so I can feel better." Nursing staff report that she has been cooperative. Review of Systems All other systems reviewed negative except as stated in HPI Mental Status Examination Appearance: Appropriate Consciousness: Alert Orientation: x4 Motor Activity: Normal gait Speech: Unremarkable Language: Adequate Fund of Knowledge: Adequate Attention and Concentration: Adequate Memory: Unremarkable Mood: Other (Euthymic to mildly dysphoric) Affect: Other (Slight increased range and intensity) Thought Process & Associations: Intact Thought Content: Bizarre thinking Hallucination Type: Auditory Delusion Type: Bizarre Suicidal Ideation: Yes (Vague stimulated by auditory hallucinations) Suicidal Plan: No Homicidal Ideation: No Homicidal Plan: No Homicidal Intention: No Insight: Fair Judgment: Poor Assessment and Plan - Assessment (1) Bipolar disorder, current episode depressed, mild or moderate severity, unspecified Code(s): F31.30 - Bipolar disorder, current episode depressed, mild or moderate severity, unspecified Status: Acute (2) Cocaine abuse Code(s): F14.10 - Cocaine abuse, uncomplicated Status: Acute - Plan Plan: Estimated LOS: [] days Continue current treatment plan. Will be seen by a psychiatrist on Saturday. Justification for Continued Inpatient Stay: Moving patient to a less restrictive environment may result in her decompensation. Request Healthcare Surrogate/Guardian Advocate?: No
[2017-12-15] MEDS: QUEtiapine 100 MG Tablet PO SCH (20:22)
[2017-12-15] MEDS: Acetaminophen 325 MG Tablet PO PRN (20:22)
[2017-12-16] MEDS: QUEtiapine 25 MG Tablet PO SCH (08:17)
--- NOTE | 2017-12-16 09:48 | P.PNPSY ---
Subjective Remarks: Patient seen and examined with nurse. Chart reviewed. Case discussed with nursing staff. On my examination today, the patient describes her mood as "cranky" and "irritated." She continues to endorse command auditory hallucinations to "end it all." She endorses vague suicidal ideation in response to these reported voices but denies any plan and contracts for safety on the inpatient unit. She does not appear internally stimulated. Complains of poor sleep. We discussed good sleep hygiene. We discussed patient's chemical dependency issues; patient believes she can simply stop using cocaine. Denies side effects from medications. Agreeable to adjustment of Seroquel as detailed below. No physical complaints. Vital Signs Temp Pulse Resp BP Pulse Ox 12/16/17 06:00 98 F 80 18 132/70 97 12/15/17 17:47 98.1 F 100 H 18 122/66 99 Intake and Output 12/16/17 12/16/17 12/16/17 06:59 14:59 22:59 Other: Weight 105.9 kg Laboratory Results - last 24 hr 12/16/17 13:30 Beta HCG, Quant Less than 1 Labs reviewed. Anemia seems stable when compared with value from August. Decreased GFR is new. I checked beta hCG, which is negative. Checked EKG which is read as sinus rhythm with QTC of 409 ms, not prolonged. Review of Systems All other systems reviewed negative except as stated in HPI Mental Status Examination Appearance: Appropriate Consciousness: Alert Orientation: x4 Motor Activity: Other (No motor abnormalities noted) Speech: Unremarkable Language: Adequate Fund of Knowledge: Adequate Attention and Concentration: Adequate Memory: Unremarkable Mood: Irritable Affect: Blunt Thought Process & Associations: Intact Thought Content: Hallucinations Hallucination Type: Auditory, Command, Other (Reported hallucinations. 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 Continue to monitor on inpatient unit. Continue other medications and care as ordered. Justification for Continued Inpatient Stay: Medication changes. Discharge Planning: Pending psychiatric stabilization. Request Healthcare Surrogate/Guardian Advocate?: No
[2017-12-16 16:15] VITALS: TEMP 97.8
[2017-12-16] MEDS: Acetaminophen 325 MG Tablet PO PRN (20:25)
[2017-12-17] MEDS: QUEtiapine 25 MG Tablet PO SCH (09:08)
--- NOTE | 2017-12-17 13:27 | P.PNPSY ---
Subjective Remarks: Reviewed electronic medical records and discussed case with staff. Follow-up was conducted in the patient's room with DAX Miramontes present. Her nurse reports that she is been sleeping a lot but otherwise appears to be extremely social and appropriate with the other patients out the day room. When groups are mentioned she states that she is sleepy and feels off and returns to her room. Upon examination today her mood is good and her affect is euthymic. Reports she is sleeping and eating well. States that she feels "a lot better" since the increase in medication last night. Mental Status Examination Appearance: Appropriate Consciousness: Alert Orientation: x4 Motor Activity: Other (No motor abnormalities noted) Speech: Unremarkable Language: Adequate Fund of Knowledge: Adequate Attention and Concentration: Adequate Memory: Unremarkable Mood: Irritable Affect: Blunt Thought Process & Associations: Intact Thought Content: Hallucinations Hallucination Type: Auditory, Command, Other (Reported hallucinations. 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 Continue with current treatment plan. Justification for Continued Inpatient Stay: Moving this patient to a less restrictive environment would likely result in decompensation. Request Healthcare Surrogate/Guardian Advocate?: No
--- NOTE | 2017-12-17 17:31 | ECG ---
Date Performed: 12/16/2017 Time Performed: 13:10:17 PTAGE: 32 years EKG: Sinus rhythm MODERATE INTRAVENTRICULAR CONDUCTION DELAY Compared to previous tracing, QRS duration is slightly lo nger BORDERLINE ECG PREVIOUS TRACING : 09/08/2017 10.59 DOCTOR: Darryl Walls Interpretating Date/Time 12/17/2017 17:30:20
[2017-12-17] MEDS: Acetaminophen 325 MG Tablet PO PRN (20:25)
[2017-12-18 00:12] VITALS: RESP 16
[2017-12-18 06:04] VITALS: BP 95/54; PULSE 73; O2SAT 99
[2017-12-18] MEDS: QUEtiapine 25 MG Tablet PO SCH (08:25)
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
== END 2017-12-18 11:20 | disposition home or self-care (01) ==
LOC: NEPD 08:47 → NEDA 12-14 11:10 → H270 12-14 12:41
PROVIDERS: ADMIT Psychiatry & Neurology Psychiatry; ATTEND Psychiatry & Neurology Psychiatry